=== PATIENT | male | born 1950 | race African-American/Black ===

== ENCOUNTER 2016-12-29 01:55 | Inpatient (IN) ==
--- NOTE | 2016-12-29 02:54 | Emergency Department Note ---
Landon Barboza Hilary, am scribing for, and in the presence of, Bennie Carvalho MD 02:21. Deven Barboza Robert M, MD, personally performed the services described in this documentation, ascribed by Linh Navarrete in my presence, and it is both accurate and complete . Arrival - Arrival Chief Complaint: Chest Pain ED Nursing Triage Note: C/O SOB and midsternal chest pain that started around 0000. Pt was seen and evaluated at [facility]- Chest pain was relieved after being given 2 SL nitro. Pt states he is still having some shortness of breath with exertion or laying down. Mode of Arrival: Stretcher Limitations: No Limitations Source: Patient, RN Notes Reviewed Time Seen by Provider: 12/29/16 02:14 - History of Present Illness HPI Narrative: Pt is a 66 y/o black male brought into the ED via EMS from [facility] with c/o midsternal chest pain which onset around 0000. Pt confirms chest pain that is now resolved but denies fever or cough. Pt has a PMHx of A-Fib, CHF, CAD, HTN, [place], PVD and COPD. No other complaints or problems stated. Onset (ago): hour(s) Consistency: now resolved Allergies/Adverse Reactions: Allergies Allergy/AdvReac Type Severity Reaction Status Date / Time MERCED Inhibitors Allergy Severe Swelling Verified 07/18/16 09:57 of Lip/Tongue/Throat benazepril Allergy Swelling Verified 07/18/16 09:58 of Lip/Tongue/Throat Home Medications: Home Medications Medication Instructions Recorded Confirmed Type Cholecalciferol (Vitamin D3) 1,000 unit PO DAILY 03/21/16 10/23/16 History [Vitamin D3] Aspirin EC Tab 81 mg PO QAM 05/24/16 10/23/16 History Levothyroxine Tab [Synthroid Tab] 88 mcg PO AC BREAKFAST 05/24/16 10/23/16 History Spironolactone [Aldactone] 25 mg PO DAILY tablet 06/07/16 10/23/16 Rx Atorvastatin [Lipitor] 10 mg PO BEDTIME 07/18/16 10/23/16 History Magnesium Oxide 400 mg PO TID 07/18/16 10/23/16 History Carvedilol 6.25 mg PO BID 07/30/16 10/23/16 History Furosemide 20 mg PO BID 07/30/16 10/23/16 History Ipratropium/Albuterol Inhaler 1 puff INH BID 10/10/16 10/23/16 History [Combivent Respimat Inhaler] Tizanidine HCl 4 mg PO Q8HR PRN 10/10/16 10/23/16 History Isosorbide Mononitrate [Isosorbide 15 mg PO DAILY 10/23/16 10/23/16 History Mononitrate ER] Montelukast Tab [Singulair Tab] 10 mg PO BEDTIME 10/23/16 10/23/16 History Pantoprazole Sodium 40 mg PO DAILY 10/23/16 10/23/16 History Potassium Chloride 20 meq PO DAILY 10/23/16 10/23/16 History Review of System - Review of System 12 point system: reviewed and no additional remarkable complaints except as stated - Review of System Constitutional: Absent: fever Respiratory: Absent: cough Cardiovascular: Present: chest pain (now resolved) Medical,Surgical,& Family Hx - Medical History Cardio: History of: Cardiac Dysrhythmia (a-fib), CHF, CAD, Hypertension, [place], PVD Neurology: No history of: Seizures Endocrine: History of: Thyroid Disorder Rheumatology: History of;: Gout Respiratory: History of: COPD, Obstructive Sleep Apnea - Surgical History Cardiac Surgeries: Sugical HX of: Cardiac Catheterization (PCI of RCA with bare- metal stent 2013), Internal Defibrillator - Family History Family History: Reports;: Family Cancer (brother-lymphoma), Family Diabetes ( brother), Family Heart Disease (mother-[place],brother and sister HTN, brother- heartvalve replacement), Family Hypertension (brother and sister) - Social History Smoking Status: Former smoker Frequency of Alcohol Use: None Type of Drug Use: None Exam Vital Signs: Vital Signs Temperature 98.3 F 12/29/16 01:55 Pulse Rate 92 H 12/29/16 01:55 Respiratory Rate 20 12/29/16 01:55 Blood Pressure 165/113 12/29/16 01:55 O2 Sat by Pulse Oximetry 97 12/29/16 01:55 - General General appearance: alert, in no apparent distress - Head Head exam: Present: atraumatic, normocephalic - Eye Eye exam: Present: normal appearance, PERRL, EOMI - ENT ENT exam: Present: mucous membranes moist, TM's normal bilaterally. Absent: mucous membranes dry - Neck Neck exam: Present: full ROM, trachea midline. Absent: tenderness - Chest Chest inspection: Present: symmetric chest wall rise. Absent: tenderness - Respiratory Respiratory exam: Present: normal lung sounds bilaterally. Absent: respiratory distress - Cardiovascular Cardiovascular exam: Present: regular rate, normal rhythm, normal heart sounds. Absent: murmur, rubs, gallop - Abdominal Exam Abdominal exam: Present: soft, normal bowel sounds. Absent: distention, tenderness - Extremities Exam Extremities exam: Present: full ROM. Absent: tenderness - Back Exam Back exam: Present: full ROM. Absent: tenderness - Neurological Exam Neurological exam: Present: alert, oriented X3, CN II-XII intact. Absent: motor sensory deficit - Psychiatric Psychiatric exam: Present: normal affect, normal mood - Skin Skin exam: Present: warm, dry, intact, normal color. Absent: rash Course - Consultations Consultation #1: Dr. Mj Monroy will admit the patient to Dr. Grewal. Time: 03:45 Results - Labs Lab Results: I have reviewed the patients labs Labs: Total Creatine Kinase 198 U/L (39-308) 12/29/16 02:54 CK-MB (CK-2) 13.3 U/L (0.5-3.6) H 12/29/16 02:54 CK and CKMB Interp 6.7 % 12/29/16 02:54 Troponin I 2.190 NG/ML (0.00-0.045) H 12/29/16 02:54 Disposition Clinical Impression: Chest pain, Allergy to MERCED inhibitors, Cardiomyopathy, LAURA (acute kidney injury ), Hypertension Case discussed with: patient, patient's family Disposition: Still a Patient Condition: Stable Time of Disposition: 03:45
[2016-12-29 03:39] LABS: CKMB % 6.7 %
[2016-12-29 03:42] LABS: Troponin I Only 2.19 NG/ML (0.00-0.045)
[2016-12-29] MEDS ORDERED: guaiFENesin/DM ER 600-30 MG TABLET PO PRN (03:46)
[2016-12-29] MEDS ORDERED: MAGNESIUM SULF RIDER 4 GM in PREMIX 1 EACH IV PRN (03:46)
[2016-12-29] MEDS ORDERED: POTASSIUM CHLORIDE 20 MEQ TABLET PO PRN (03:46)
[2016-12-29] MEDS ORDERED: DOCUSATE SODIUM 100 MG CAPSULE PO PRN (03:46)
[2016-12-29] MEDS ORDERED: MAGNESIUM SULF RIDER 2 GM in PREMIX 1 EACH IV PRN (03:46)
[2016-12-29] MEDS ORDERED: ZALEPLON 5 MG CAPSULE PO PRN (03:46)
[2016-12-29] MEDS ORDERED: ENOXAPARIN 100 MG/ML SYRINGE SUBCUT SCH (05:00)
[2016-12-29] MEDS: NITROGLYCERIN 2% OINT 1 INCH/GM PACK TOP SCH ×2 (06:02→13:30)
[2016-12-29 06:14] LABS: Troponin I Only 11.3 NG/ML (0.00-0.045)
--- NOTE | 2016-12-29 08:10 | EKG Report ---
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
--- NOTE | 2016-12-29 08:47 | EKG Report ---
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
--- NOTE | 2016-12-29 08:57 | Cardiology History & Physical ---
<Latonya Robert E - Last Filed: 12/29/16 09:05> Assessment and Plan - Time spent with patient Time spent with patient: Greater than 30 minutes (due to assessment, plan, and documentation) (1) NSTEMI (non-ST elevated myocardial infarction) Status: Acute Assessment and plan: SEE PLAN OF CARE LISTED BELOW. Current Visit: Yes (2) Paroxysmal atrial fibrillation Status: Chronic Assessment and plan: SEE PLAN OF CARE LISTED BELOW. Current Visit: No (3) Nonischemic cardiomyopathy Status: Chronic Assessment and plan: SEE PLAN OF CARE LISTED BELOW. Current Visit: No (4) Allergy to MERCED inhibitors Status: Chronic Assessment and plan: SEE PLAN OF CARE LISTED BELOW. Current Visit: Yes (5) Hypertension Status: Chronic Assessment and plan: SEE PLAN OF CARE LISTED BELOW. Current Visit: Yes (6) Acute systolic CHF (congestive heart failure) Status: Acute Assessment and plan: SEE PLAN OF CARE LISTED BELOW. Current Visit: No (7) NSVT (nonsustained ventricular tachycardia) Status: Chronic Assessment and plan: SEE PLAN OF CARE LISTED BELOW. Current Visit: No (8) S/P implantation of automatic cardioverter/defibrillator (AICD) Status: Chronic Assessment and plan: SEE PLAN OF CARE LISTED BELOW. Current Visit: Yes (9) Obstructive sleep apnea Status: Chronic Assessment and plan: SEE PLAN OF CARE LISTED BELOW. Current Visit: No (10) PVD (peripheral vascular disease) Status: Chronic Assessment and plan: SEE PLAN OF CARE LISTED BELOW. Current Visit: Yes (11) COPD (chronic obstructive pulmonary disease) Status: Chronic Assessment and plan: SEE PLAN OF CARE LISTED BELOW. Current Visit: Yes (12) Coronary artery disease Problem details: PCI to RCA with BMS 03/2014 [facility] Status: Chronic Assessment and plan: SEE PLAN OF CARE LISTED BELOW. Current Visit: No History of Present Illness Chief complaint: chest pain History of present illness: CARDIOLGIST: DR. BROCK ALLERGIC TO MERCED INHIBITORS Mr. Garcia is a 66 year old male with a history of CAD, status post PCI March [address] Callahan at [place] with placement of Integrity [id number] bare-metal stent to ostial RCA. He also has a history of COPD, hyperlipidemia, hypertension, ischemic cardiomyopathy with recent EF 20% per echo 10/10/16 with PAP 78mmHg. He has paroxysmal atrial fibrillation and a history of nonsustained ventricular tachycardia. In May 2016, he underwent ICD implantation by Dr. Arias. He was seen in clinic by Dr. Grewal yesterday and his interrogation of his ICD did not show any recurrent atrial fibrillation so his anticoagulation was held. He was recently hospitalized in October of this year for new onset atrial fibrillation and CHF exacerbation. Mr. Garcia reports he had been in his usual state of health and had actually been feeling better following his recent hospitalization until last night. He states he woke up around midnight with a midsternal chest discomfort that he describes as a burning sensation. It was accompanied by shortness of breath and diaphoresis. He reports the pain persisted and he went to the emergency room in [place], [place]. He was given 2 sublingual nitroglycerin and had relief of his symptoms. He denies nausea, vomiting, dizziness, lightheadedness, or syncope. He denies radiation of pain. He states is was severe in nature. He was given an aspirin, IV Lasix, and 80mg Lovenox subcutaneously and transferred to our facility where he was admitted through the emergency department to the telemetry unit. Initial troponin was 0.15 with CK-MB 4.4, now up to trop 11.3 and CK-MB 41.0. Creatinine is 1.09. Potassium 4.2. BUN 21. WBC 9.22. HGB 15.8. HCT 50.1. Mag 1.8. ProBNP 1755. EKG shows atrial fibrillation with increased ventricular response. Dr. Brock to follow with further plan and addendum. ASSESSMENT/PLAN: 1. NSTEMI - Admitted to telemetry unit. Patient has been seen and evaluated this morning by myself and Dr. Brock. Given the patient's presentation and lab values, it is suspected he has had a non-ST elevation myocardial infarction and will need cardiac catheterization to evaluate for new obstructing coronary disease. Dr. Brock has discussed this with the patient and his and they are agreeable to proceed with left heart catheterization. 2. PAROXYSMAL ATRIAL FIBRILLATION - Proceed with left heart catheterization. We will resume his Toprol XL PO daily. 3. NONISCHEMIC CARDIOMYOPATHY - Continue home medications following LHC. Will monitor and adjust as needed. 4. ALLERGY TO MERCED INHIBITORS - Allergic to benazepril. Reaction: ANGIOEDEMA 5. HYPERTENSION - Currently slightly hypertensive. Will resume home medications following heart catheterization. 6. SYSTOLIC CHF - Previous EF 20% per echocardiogram 10/10/16. He was also noted to have moderate LVH, mildly enlarged right and left atria, mild MR, normal aortic valve without stenosis or sclerosis, mild to moderate tricuspid regurgitation with velocities suggesting a PAP of 78 mmHg, and trace pulmonary valve regurgitation. Patient presented to [facility] with chest pain and acute on chronic systolic CHF with ProBNP 1755. He was given 1 dose of IV Lasix at [facility]. He has no overt signs of heart failure at present, maybe scant crackles in the posterior bases. He is breathing comfortably at this time. 7. NSVT - S/P dual chamber AICD implantation by Dr. Arias May 2016. 8. S/P AICD - S/P dual chamber AICD implantation by Dr. Arias May 2016. 9. OBSTRUCTIVE SLEEP APNEA - Noncompliant with CPAP. Patient currently wears O2 at night and has a follow up appointment within the next week for re-evaluation. 10. PERIPHERAL VASCULAR DISEASE - Peripheral pulses present and palpable. Will continue home medications. 11. COPD - O2 PRN. Continue home medications. 12. CORONARY ARTERY DISEASE - Status post bare-metal stent to ostial RCA March [address] Callahan now presenting with NSTEMI. Previous heart catheterization May [address] stent. Dr. Brock will further evaluate with left heart catheterization today. Home Medications Medication Instructions Recorded Confirmed Type Aspirin EC Tab 81 mg PO QAM 05/24/16 12/29/16 History Levothyroxine Tab [Synthroid Tab] 88 mcg PO AC BREAKFAST 05/24/16 12/29/16 History Spironolactone [Aldactone] 25 mg PO DAILY tablet 06/07/16 12/29/16 Rx Magnesium Oxide 400 mg PO TID 07/18/16 12/29/16 History Furosemide 20 mg PO BID 07/30/16 12/29/16 History Ipratropium/Albuterol Inhaler 1 puff INH BID 10/10/16 12/29/16 History [Combivent Respimat Inhaler] Montelukast Tab [Singulair Tab] 10 mg PO BEDTIME 10/23/16 12/29/16 History Pantoprazole Sodium 40 mg PO DAILY 10/23/16 12/29/16 History Potassium Chloride 20 meq PO DAILY 10/23/16 12/29/16 History Allopurinol 300 mg PO DAILY 12/29/16 12/29/16 History Atorvastatin Calcium [Atorvastatin 10 mg PO DAILY 12/29/16 12/29/16 History Calcium] Budesonide/Formoterol 160-4.5 2 puff INH BID 12/29/16 12/29/16 History [Symbicort 160-4.5] Cholecalciferol (Vitamin D3) 1,000 unit PO DAILY 12/29/16 12/29/16 History [Vitamin D3] Digoxin Tab [Lanoxin Tab] 0.125 mg PO DAILY 12/29/16 12/29/16 History Metoprolol Succinate [Metoprolol 25 mg PO DAILY 12/29/16 12/29/16 History Succinate] Allergies Allergy/AdvReac Type Severity Reaction Status Date / Time MERCED Inhibitors Allergy Severe Swelling Verified 07/18/16 09:57 of Lip/Tongue/Throat benazepril Allergy Swelling Verified 07/18/16 09:58 of Lip/Tongue/Throat Review of systems: - Constitutional: Present: fatigue, As per HPI. Absent: anorexia, chills, daytime sleepiness, excessive sweating, fever(s), frequent falls, headache(s), increased appetite, lethargy, malaise, night sweats, stops breathing during sleep, weakness, weight gain, weight loss. - EENT Eyes: Present: As per HPI. Absent: blurry vision, diplopia, loss of vision Ears: Present: As per HPI. Absent: decreased hearing, ear discharge, ear pain Nose, mouth and throat: Present: As per HPI. Absent: dysphagia, epistaxis, headache(s), hoarseness, lip swelling, nasal congestion, neck mass, neck pain, sinus pressure, sore throat, throat swelling, tongue swelling, vertigo - Cardiovascular: Present: chest pain at rest, dyspnea, dyspnea on exertion, as per HPI. Absent: chest pain with activity, edema, claudication, diaphoresis, radiating jaw, neck or arm pain, lightheadedness, orthopnea, palpitations, PND - Respiratory: Present: dyspnea, dyspnea on exertion, snoring, as per HPI. Absent: cough, hemoptysis, wheezing, pain on inspiration - Gastrointestinal: Present: As per HPI. Absent: abdominal pain, bloating, change in bowel habits, constipation, diarrhea, heartburn, hematemesis, hematochezia, loose stools, melena, nausea, vomiting - Genitourinary: Present: As per HPI. Absent: difficulty urinating, dysuria, flank pain, hematuria, nocturia, urinary frequency, urinary incontinence - Musculoskeletal: Present: As per HPI. Absent: arthralgias, back pain, joint swelling, limited range of motion, muscle cramps, muscle weakness, myalgias - Neurological: Present: As per HPI. Absent: abnormal gait, abnormal speech, behavioral changes, confusion, convulsions, disequilibrium, dizziness, focal weakness, frequent falls, headache(s), memory loss, numbness, paresthesias, radicular pain, syncope, tremor(s) - Psychiatric: Present: As per HPI. Absent: anxiety, confusion, depression, panic attacks - Endocrine: Present: fatigue, As per HPI. Absent: cold intolerance, heat intolerance, polydipsia, polyphagia - Hematologic/Lymphatic: Present: As per HPI. Absent: easy bleeding, easy bruising, lymphadenopathy Medical,Surgical,& Family Hx - Medical History Cardio: History of: Cardiac Dysrhythmia (a-fib), CHF, CAD, Hypertension, [place], Pacemaker, PVD Neurology: No history of: Seizures Endocrine: History of: Thyroid Disorder Rheumatology: History of;: Gout Respiratory: History of: COPD, Obstructive Sleep Apnea - Surgical History Cardiac Surgeries: Sugical HX of: Cardiac Catheterization (PCI of RCA with bare- metal stent 2013), Internal Defibrillator - Family History Family History: Reports;: Family Cancer (brother-lymphoma), Family Diabetes ( brother), Family Heart Disease (mother-[place],brother and sister HTN, brother- heartvalve replacement), Family Hypertension (brother and sister) - Social History Smoking Status: Former smoker Frequency of Alcohol Use: None Type of Drug Use: None Marital Status: Lives With:: Spouse Functional capacity: independent ambulation Cardiology Physical Exam - Constitutional Vitals: Vital Signs Temp Pulse Resp BP Pulse Ox 97.4 F L 58 L 18 148/97 96 12/29/16 08:00 12/29/16 08:00 12/29/16 08:00 12/29/16 08:00 12/29/16 08:00 Intake and Output 12/28/16 12/29/16 12/29/16 22:59 06:59 14:59 Other: Weight 196 lb 4.8 oz Exam: General appearance: Pleasant and cooperative. Overweight, no acute distress. - Head Head exam: Present: normal inspection, normocephalic, atraumatic. Absent: hematoma, laceration - Eye Eye exam: Present: EOMI. Absent: conjunctival injection, nystagmus, periorbital swelling, scleral icterus, laceration to eyelids Pupils: Present: PERRL. Absent: constricted, dilated, fixed, irregular, unequal - ENT ENT exam: Present: normal exam, normal external ear exam - Neck Neck exam: Present: normal inspection. Absent: lymphadenopathy, meningismus, tenderness, thyromegaly - Respiratory Respiratory exam: Present: clear to auscultation bilaterally, scant crackles to posterior lung bases. Absent: accessory muscle use, chest wall tenderness - Cardiovascular Cardiovascular exam: Present: Irregular rate and rhythm. Absent: carotid bruit , gallop, JVD, rubs, murmur - GI/Abdominal GI/Abdominal exam: Present: normal bowel sounds, soft. Absent: distended, firm , guarding, hernia, mass, tenderness, rebound. - Extremities Exam Extremities exam: Present: normal inspection, normal capillary refill. Upper extremity pulses 2+. Lower extremity pulses 2+. Absent: calf tenderness, edema -Musculoskeletal Exam Musculoskeletal: Present: No Fluid Collection, No Pain, Normal Range of Motion - Back Exam Back exam: Present: normal inspection. Absent: muscle spasm, vertebral tenderness - Neurological Exam Neurological exam: Present: alert, oriented X3, grossly intact without resting or essential tremor - Psychiatric Psychiatric exam: Present: normal affect, normal mood - Skin Skin exam: Present: normal color, warm, dry, intact. Absent: cyanosis, diaphoretic, rash, urticaria Result/EKG - Labs Lab Results: I have reviewed the past 24 hour labs Labs: Laboratory Results - last 24 hr 12/29/16 05:22 Total Creatine Kinase 455 H D CK-MB (CK-2) 41.0 H D CK and CKMB Interp 9.0 Troponin I 11.300 H D - EKG EKG results: interpreted by me EKG shows: atrial fibrillation <Michele Brock - Last Filed: 12/29/16 10:02> History of Present Illness History of present illness: Cardiology addendum patient examined chart reviewed and discussed with patient and his Non-Q-wave [place]. Status post RCA stent at [place] around 2013 Ejection fraction 20% status post defibrillator Recurrent atrial fibrillation Hypertension Plan normal saline hydration Cardiac cath today possible stent Cardiology Physical Exam - Constitutional Vitals: Vital Signs Temp Pulse Resp BP Pulse Ox 97.4 F L 58 L 18 148/97 96 12/29/16 08:00 12/29/16 08:00 12/29/16 08:00 12/29/16 08:00 12/29/16 08:00 Intake and Output 12/28/16 12/29/16 12/29/16 23:59 07:59 15:59 Other: Weight 89.04 kg Patient Weight 12/29/16 23:59 Weight 89.04 kg Result/EKG - Labs Labs: Laboratory Results - last 24 hr 12/29/16 05:22 Total Creatine Kinase 455 H D CK-MB (CK-2) 41.0 H D CK and CKMB Interp 9.0 Troponin I 11.300 H D
[2016-12-29] MEDS: PANTOPRAZOLE 40 MG TABLET PO SCH (09:06)
[2016-12-29] MEDS ORDERED: diphenhydrAMINE CAP 25 MG CAPSULE PO ONE (10:08)
[2016-12-29] MEDS ORDERED: diphenhydrAMINE CAP 50 MG CAPSULE ONE (10:08)
[2016-12-29] MEDS ORDERED: DIAZEPAM 5 MG TABLET ONE (10:08)
[2016-12-29] MEDS ORDERED: DIAZEPAM 5 MG TABLET PO ONE (10:10)
[2016-12-29] MEDS: ASPIRIN EC 81 MG TABLET PO SCH (10:13)
[2016-12-29] MEDS: SPIRONOLACTONE 25 MG TABLET PO SCH (10:13)
[2016-12-29] MEDS: METOPROLOL SUCCINATE XL 25 MG TABLET PO SCH (10:13)
[2016-12-29] MEDS: ALLOPURINOL 300 MG TABLET PO SCH (10:14)
[2016-12-29] MEDS: DIGOXIN 0.125 MG TABLET PO SCH (10:14)
[2016-12-29] MEDS: CHOLECALCIFEROL 1,000 UNIT TABLET PO SCH (10:14)
[2016-12-29] MEDS ORDERED: LIDOCAINE 1% 20 ML VIAL ONE (10:16)
[2016-12-29] MEDS ORDERED: HEPARIN/NACL 0.9% 2 UNITS/ML 500 ML IV ONE ×2 (10:16→10:23)
[2016-12-29] MEDS: POTASSIUM CHLORIDE 20 MEQ TABLET PO SCH (10:17)
[2016-12-29] MEDS ORDERED: HYDROmorphone 2 MG/1 ML VIAL ONE (11:02)
[2016-12-29] MEDS ORDERED: MIDAZOLAM 2 MG/2 ML VIAL ONE (11:03)
--- NOTE | 2016-12-29 11:27 | History and Physical Update ---
Sedation H&P Update - History and Physical H&P was reviewed, the patient examined and there: are no changes in the patients condition since last H&P was completed. - Dictation Physical: refer to H&P completed by admitting physician - Physical Exam Mental Status: alert and oriented Heart: regular rate and rhythm Lung: clear to auscultation Abdomen: within normal limits Vitals: within normal limits - Sedation Plan for Sedation: moderate Patient Consent: Procedure disscussed with patient and patinet has consented., Risks and benefits were discussed with patient,including infection,, bleeding, injury to surrounding structures, seizure, temporary nerve, Patient understands and accepts potential risks/benefits and agrees to, proceed. ASA Class: II Airway Assessment: Class II: Soft palate, uvula, fauces visible
[2016-12-29] MEDS ORDERED: BIVALIRUDIN 250 MG VIAL IV ONE (11:52)
[2016-12-29] MEDS ORDERED: CLOPIDOGREL 300 MG TABLET ONE (12:07)
[2016-12-29] MEDS ORDERED: ACETAMINOPHEN 325 MG TABLET PO PRN (12:35)
[2016-12-29] MEDS ORDERED: NITROGLYCERIN SL 0.4 MG TABLET SL PRN (12:35)
--- NOTE | 2016-12-29 12:35 | Cardiac Catheterization ---
Date of Procedure:: 12/29/16 Pre-op Diagnosis: Chest pain CAD non-Q-wave DC Post-op diagnosis: same Procedure: Cardiac catheterization procedure note #1 left heart catheterization #2 selective coronary angiography #3 left ventriculography #4 successful proximal LAD stent Omnipaque was used for the procedure Description of procedure Following sterile preparation draping of the right groin, local anesthesia was achieved by infiltration 1% Xylocaine. Using a Cook needle the right femoral artery was cannulated and a #6 sheath was inserted. A 6 [place] pigtail catheter was introduced and advanced retrograde across the aortic valve into the left ventricle and the end-diastolic pressure was recorded. Left ventriculography was performed in the GUSMAN projection using 24 cc of contrast. A pullback recording made across aortic valve. The pigtail catheter exchanged for a 6 [place] left Ismael catheter and left coronary angiography was performed in several GUSMAN and POLISH projections. The catheter was exchanged for a 6 [place] right Amplatz catheter and right coronary angiography was performed in GUSMAN and POLISH projections. The catheter change for a 6 [place] left Ismael guiding catheter in the left main was recannulated. A's Alpine was obtained. The patient was both Angiomax and placed on infusion per protocol. A pro-water flex wire was introduced and carefully advanced into the distal LAD. Direct stenting was performed using a 3.5 x 12 mm AdAdapted drug-coated stent. The maximum inflation pressure was 19 temperatures for 30 seconds, creating a 3.95 mm lumen. The balloon was deflated and brought back into the guiding catheter, Leaving only the guidewire across the lesion. Repeat angiography widely patent vessel with mild residual narrowing, no dissection and brisk runoff. The guiding catheter and sheath were removed and the femoral arteriotomy site was sealed percutaneously with a vascade closure device with prompt cessation of bleeding and prompt return of the femoral foot pulses. The patient is transferred back to telemetry in stable condition. Hemodynamic data Aortic pressure 110/71 mean 88 LV 110/14 Selective coronary angiography The left main trunk is widely patent bifurcates. The LAD is a large vessel wraps around the apex. There is an ulcerated 60% stenosis in the proximal vessel before the first septal patient access coordinator. The diagonal branch has mild disease. The circumflex consists of 3 large tortuous OM branches which are widely patent. The right coronary has a patent mid vessel stent site and a 40% stenosis beyond the stented segment. Left ventriculography The ventricle is dilated. Severe global hypokinesis. Ejection fraction 15%. Trivial MR is noted. Conclusions #1 increased LVEDP 14 #2 ejection fraction 15% with severe global hypokinesis #3 trivial mitral vegetation #4 no aortic valve gradient #5 left main trunk-patent #6 LAD-ulcerated 60% proximal stenosis before first septal patient access coordinator #7 first diagonal-mild proximal disease #8 circumflex system-3 large tortuous OM branches widely patent #9 dominant RCA-widely patent mid vessel stent site with 40% stenosis beyond the stented segment just before the crux #10 successful proximal LAD stent using a 3.5 x 12 mm Alpine Zions drug-eluting stent. The maximum inflation pressure was 19 and measures for 30 seconds, creating a 3.95 mm lumen. Good result obtained. Disposition The patient is status post non-Q-wave infarction. Cath demonstrated an ulcerated proximal LAD stenosis which was stented with a 3.5 x 12 mm Alpine Zions drug-coated stent, postdilated to a 3.95 mm lumen. Good result obtained. The circumflex system remains widely patent and the mid right coronary stent remains widely patent. The patient has an ischemic cardia myopathy, ejection fraction 15%. Continue aspirin Plavix and statin therapy. BMP will be checked in the morning Implants: Successful proximal LAD stent 3.5 x 12 mm Alpine Zions drug-coated stent, postdilated 3.95 mm lumen. Good result obtained. Anesthesia: moderate conscious sedation Surgeon / Physician: Michele Brock Estimated blood loss: minimal Specimens: none sent Condition: stable Disposition: floor - Medications / Follow-up
[2016-12-29] MEDS ORDERED: SODIUM CHLORIDE 0.9% 1,000 ML IV SCH (13:00)
--- NOTE | 2016-12-29 13:07 | EKG Report ---
Stationary ECG Study [facility] Test Date: 12/29/2016 1:06:56 PM Pat Name: RAQUEL FINN Department: Room: 284 Gender: M Chip Separator: KOLBY : 1950 Requested by: Cheikh Lind Order Number: [id number] Reading MD: CHEIKH LIND Intervals [place] Rate: 109 P: 999 IN: 0 QRS: 127 QRSD: 93 T: 20 QT: 332 QTc: 396 Interpretive Statements ATRIAL FIBRILLATION WITH RAPID VENTRICULAR RESPONSE RIGHT AXIS DEVIATION Electronically Signed On 12-29-16 17:47:11 CDT by CHEIKH LIND [email or web address]
[2016-12-29] MEDS: BUDESONIDE/FORMOTEROL 160-4.5 INHALER 6 GM INH SCH ×2 (13:29→21:13)
[2016-12-29] MEDS: ALBUTEROL/IPRATROPIUM 3 ML NEB RESP TX SCH ×2 (13:29→18:54)
[2016-12-29 14:35] LABS: CKMB % 9.5 %
[2016-12-29 14:39] LABS: Troponin I Only 14.4 NG/ML (0.00-0.045)
[2016-12-29] MEDS: MAGNESIUM OXIDE 400 MG TABLET PO SCH ×2 (15:19→21:09)
[2016-12-29 20:57] LABS: CKMB % 7.6 %
[2016-12-29 20:59] LABS: Troponin I Only 9.5 NG/ML (0.00-0.045)
[2016-12-29] MEDS: ATORVASTATIN 10 MG TABLET PO SCH (21:09)
[2016-12-29] MEDS: MONTELUKAST 10 MG TABLET PO SCH (21:09)
[2016-12-30 05:33] LABS: Basophils # 0.1 10*3/uL (0.0-0.2); Basophils % 0.7 % (0.0-0.8); Eosinophils # 0.1 10*3/uL (0.0-0.87); Eosinophils % 0.7 % (0.00-10.9); Hematocrit 48.5 VOL% (42.0-52.0); Hemoglobin 15.5 GM/DL (14.0-18.0); Immature Granulocytes % 0.3 %; Immature Granulocytes Absolute 0.03 #; Lymphocytes # 1.8 10*3/uL (1.4-4.0); Lymphocytes % 19.2 % (21.2-54.2); Mean Corpuscular Hemoglobin 28 PG (27-34); Mean Corpuscular Volume 88.7 FL (87-102); Mean Platelet Volume 11.8 FL (9.6-12.0); Monocytes % 10.5 % (1.7-12.7); Neutrophils # 6.3 10*3/uL (1.4-7.4); Neutrophils % 68.6 % (38.7-73.9); Platelet Count 228 T/CUMM (130-400); Red Blood Count 5.47 MC/CUMM (3.8-5.5); Red Cell Distribution Width 15.5 % (9.3-17.3); White Blood Count 9.1 T/CUMM (4-12)
[2016-12-30 06:04] LABS: Calcium 9.5 MG/DL (8.5-10.1); Osmolality,Calculated 282.4 MOS/KG (273-304); Potassium 4.9 MMOL/L (3.5-5.1)
[2016-12-30 06:14] LABS: Albumin 3.6 G/DL (3.4-5.0); Bilirubin,Total 1.2 MG/DL (0.2-1.0); Calcium 9.5 MG/DL (8.5-10.1); Free T4 (Free Thyroxine) 0.88 NG/DL (0.76-1.46); Magnesium 2.1 MG/DL (1.8-2.4); Osmolality,Calculated 280.5 MOS/KG (273-304); Potassium 5.2 MMOL/L (3.5-5.1); Risk Ratio 3.42; Thyroid Stimulating Hormone 1.04 uIU/ml (0.358-3.74); Total Protein 6.4 G/DL (6.4-8.3); VLDL CHOLESTEROL 28.6 MG/DL
--- NOTE | 2016-12-30 07:17 | EKG Report ---
Stationary ECG Study [facility] Test Date: 12/30/2016 7:16:41 AM Pat Name: RAQUEL FINN Department: Room: 284 Gender: M Lab Technologist: SHAKIR : 1950 Requested by: Cheikh Lind Order Number: [id number] Reading MD: CHEIKH LIND Intervals [place] Rate: 86 P: 999 [place]: 0 QRS: 125 QRSD: 98 T: 240 QT: 377 QTc: 421 Interpretive Statements ATRIAL FIBRILLATION RIGHT AXIS DEVIATION POOR R-WAVE PROGRESSION Electronically Signed On 12-30-16 17:24:08 CDT by CHEIKH LIND [email or web address]
[2016-12-30] MEDS: ALBUTEROL/IPRATROPIUM 3 ML NEB RESP TX SCH ×2 (07:31→20:42)
[2016-12-30] MEDS: LEVOTHYROXINE 88 MCG TABLET PO SCH (08:29)
[2016-12-30] MEDS: METOPROLOL SUCCINATE XL 25 MG TABLET PO SCH (08:29)
[2016-12-30] MEDS: MAGNESIUM OXIDE 400 MG TABLET PO SCH ×3 (08:29→21:31)
[2016-12-30] MEDS: ASPIRIN EC 81 MG TABLET PO SCH (08:29)
[2016-12-30] MEDS: ALLOPURINOL 300 MG TABLET PO SCH (08:29)
[2016-12-30] MEDS: PANTOPRAZOLE 40 MG TABLET PO SCH (08:29)
[2016-12-30] MEDS: SPIRONOLACTONE 25 MG TABLET PO SCH (08:29)
[2016-12-30] MEDS: POTASSIUM CHLORIDE 20 MEQ TABLET PO SCH (08:29)
[2016-12-30] MEDS: CLOPIDOGREL 75 MG TABLET PO SCH (08:29)
[2016-12-30] MEDS: DIGOXIN 0.125 MG TABLET PO SCH (08:29)
[2016-12-30] MEDS: CHOLECALCIFEROL 1,000 UNIT TABLET PO SCH (08:29)
[2016-12-30] MEDS: ATORVASTATIN 10 MG TABLET PO SCH (08:30)
[2016-12-30] MEDS: BUDESONIDE/FORMOTEROL 160-4.5 INHALER 6 GM INH SCH ×2 (08:31→21:32)
[2016-12-30] MEDS ORDERED: METOPROLOL SUCCINATE XL 50 MG TABLET PO SCH (10:20)
--- NOTE | 2016-12-30 12:30 | Discharge Summary ---
Hospital Course - Hospital Course Hospital Course: CARDIOLGIST: DR. BROCK ALLERGIC TO MERCED INHIBITORS Mr. Garcia is a 66 year old male who presented with chest discomfort. He states he woke up around midnight with a midsternal chest discomfort that he describes as a burning sensation. It was accompanied by shortness of breath and diaphoresis. He has a history of CAD, status post PCI March [address] Callahan at [facility] with placement of Integrity [id number] bare- metal stent to ostial RCA. He also has a history of COPD, hyperlipidemia, hypertension, ischemic cardiomyopathy with recent EF 20% per echo 10/10/16 with PAP 78mmHg. He has paroxysmal atrial fibrillation and a history of nonsustained ventricular tachycardia. In May 2016, he underwent ICD implantation by Dr. Arias. During hospitalization, his troponin jumped to a peak of 14.4 and he was taken to the laboratory sampler by Dr. Brock for his non-Q-wave IN where he received a drug-eluting stent for a 60% ulcerated proximal LAD stenosis. Post catheterization, he has done well. His blood pressure was a little elevated and we adjusted his medications. His right groin cath site dressing was removed. There has been no bleeding, hematoma, or bruit. Femoral pulses are 3+. Peripheral pulses are present and palpable. Since admission, he has been in atrial fibrillation. He has been off of his anticoagulation previously since he'd had no recurrent episodes of AFib until now. We've increased his dose of Toprol XL and his heart rates have been better controlled, but he remains in atrial fibrillation. - Time spent with patient Time with patient DS: Greater than 30 minutes Diagnosis - Discharge Diagnosis (1) NSTEMI (non-ST elevated myocardial infarction) Status: Acute (2) Paroxysmal atrial fibrillation Status: Chronic (3) Nonischemic cardiomyopathy Status: Chronic (4) Allergy to MERCED inhibitors Status: Chronic (5) Hypertension Status: Chronic (6) Acute systolic CHF (congestive heart failure) Status: Chronic (7) NSVT (nonsustained ventricular tachycardia) Status: Chronic (8) S/P implantation of automatic cardioverter/defibrillator (AICD) Status: Chronic (9) Obstructive sleep apnea Status: Chronic (10) PVD (peripheral vascular disease) Status: Chronic (11) COPD (chronic obstructive pulmonary disease) Status: Chronic (12) Coronary artery disease Status: Chronic Specialty Discharge - Follow Up or Referrals Follow up with: Julia Grewal MD [Physician] - 02/28/17 10:20 am (We made an additional appt for you on 01/20/17 09:00.) Discharge Plan - Discharge Data Disposition: Disch To Home/Self Care Condition at Discharge: Stable Discharge Diet: diabetic diet, heart healthy Activity: no lifting (over 5# x 1 week), other (post cath expectations) Hygiene: may shower, other (post cath expectations) Weight Bearing at Discharge: full weight bearing Driving: not for (2 days) Contact your physician if you experience:: fever over 101, Difficulty voiding, Redness or swelling, Nausea/Vomiting, Shortness of breath, Bleeding, pain uncontrolled by pain medications - Discharge Medications No Action Levothyroxine Tab [Synthroid Tab] 88 mcg PO AC BREAKFAST Aspirin EC Tab 81 mg PO QAM Spironolactone [Aldactone] 25 mg PO DAILY tablet Magnesium Oxide 400 mg PO TID Montelukast Tab [Singulair Tab] 10 mg PO BEDTIME Pantoprazole Sodium 40 mg PO DAILY Budesonide/Formoterol 160-4.5 [Symbicort 160-4.5] 2 puff INH BID Cholecalciferol (Vitamin D3) [Vitamin D3] 1,000 unit PO DAILY Furosemide 20 mg PO BID Ipratropium/Albuterol Inhaler [Combivent Respimat Inhaler] 1 puff INH BID Potassium Chloride 20 meq PO DAILY Allopurinol 300 mg PO DAILY Digoxin Tab [Lanoxin Tab] 0.125 mg PO DAILY Metoprolol Succinate [Metoprolol Succinate] 25 mg PO DAILY Atorvastatin Calcium [Atorvastatin Calcium] 10 mg PO DAILY - Follow Up or Referral Follow Up: Julia Grewal MD [Physician] - 02/28/17 10:20 am (We made an additional appt for you on 01/20/17 09:00.) - Forms/Instructions Instructions: Left Heart Catheterization (DC), Heart Healthy Diet (GEN), Coronary Intravascular Stent Placement (DC) Exam - Constitutional Vitals: Period Temp Pulse Resp BP Sys/Estrada Pulse Ox Last 24 Hr 96.2 F-97.6 F 60-105 16-20 123-148/70-105 91-100 Exam: General appearance: Pleasant and cooperative. Overweight, no acute distress. - Head Head exam: Present: normal inspection, normocephalic, atraumatic. Absent: hematoma, laceration - Eye Eye exam: Present: EOMI. Absent: conjunctival injection, nystagmus, periorbital swelling, scleral icterus, laceration to eyelids Pupils: Present: PERRL. Absent: constricted, dilated, fixed, irregular, unequal - ENT ENT exam: Present: normal exam, normal external ear exam - Neck Neck exam: Present: normal inspection. Absent: lymphadenopathy, meningismus, tenderness, thyromegaly - Respiratory Respiratory exam: Present: clear to auscultation bilaterally, decreased breath sounds posteriorly. Absent: accessory muscle use, chest wall tenderness - Cardiovascular Cardiovascular exam: Present: Irregular rate and rhythm. Absent: carotid bruit , gallop, JVD, rubs, murmur - GI/Abdominal GI/Abdominal exam: Present: normal bowel sounds, soft. Absent: distended, firm , guarding, hernia, mass, tenderness, rebound. - Extremities Exam Extremities exam: Present: normal inspection, normal capillary refill. Upper extremity pulses 2+. Lower extremity pulses 2+. Absent: calf tenderness, edema -Musculoskeletal Exam Musculoskeletal: Present: No Fluid Collection, No Pain, Normal Range of Motion - Back Exam Back exam: Present: normal inspection. Absent: muscle spasm, vertebral tenderness - Neurological Exam Neurological exam: Present: alert, oriented X3, grossly intact without resting or essential tremor - Psychiatric Psychiatric exam: Present: normal affect, normal mood - Skin Skin exam: Present: normal color, warm, dry, intact. Absent: cyanosis, diaphoretic, rash, urticaria -Right groin Right groin exam: No bleeding, hematoma, or bruit. Mild tenderness to palpation. Femoral pulse 3+. Peripheral pulses 2+ bilaterally. Discharge Results Procedures and tests throughout hospitalization: Pending Orders 12/31/16 04:00 Basic Metabolic Panel IN AM Comp Blood Count Auto Diff IN AM Magnesium IN AM 01/01/17 04:00 Basic Metabolic Panel IN AM Comp Blood Count Auto Diff IN AM Magnesium IN AM 01/02/17 04:00 Basic Metabolic Panel IN AM Comp Blood Count Auto Diff IN AM Magnesium IN AM LEFT HEART CATHETERIZATION: Selective coronary angiography The left main trunk is widely patent bifurcates. The LAD is a large vessel wraps around the apex. There is an ulcerated 60% stenosis in the proximal vessel before the first septal unclaimed property manager. The diagonal branch has mild disease. The circumflex consists of 3 large tortuous OM branches which are widely patent. The right coronary has a patent mid vessel stent site and a 40% stenosis beyond the stented segment. Left ventriculography The ventricle is dilated. Severe global hypokinesis. Ejection fraction 15%. Trivial MR is noted. Conclusions #1 increased LVEDP 14 #2 ejection fraction 15% with severe global hypokinesis #3 trivial mitral vegetation #4 no aortic valve gradient #5 left main trunk-patent #6 LAD-ulcerated 60% proximal stenosis before first septal unclaimed property manager #7 first diagonal-mild proximal disease #8 circumflex system-3 large tortuous OM branches widely patent #9 dominant RCA-widely patent mid vessel stent site with 40% stenosis beyond the stented segment just before the crux #10 successful proximal LAD stent using a 3.5 x 12 mm Alpine Zions drug-eluting stent. The maximum inflation pressure was 19 and measures for 30 seconds, creating a 3.95 mm lumen. Good result obtained. Labs on day of discharge: Labs from last 24 hours 12/30/16 12/30/16 12/30/16 04:57 04:57 04:57 WBC RBC Hgb Hct MCV MCH MCHC RDW Plt Count MPV Neut % (Auto) Lymph % (Auto) Greene % (Auto) Eos % (Auto) Baso % (Auto) Neut # (Auto) Lymph # (Auto) Greene # (Auto) Eos # (Auto) Baso # (Auto) Immature Gran % Nucleated RBC % Immature Gran # Nucleated RBCs # Sodium 140 139 Potassium 4.9 5.2 H Chloride 105 105 Carbon Dioxide 22 21 Anion Gap 17.9 H 18.2 H BUN 22 H 21 H Creatinine 1.40 H 1.30 GFR Calculation 71 78 BUN/Creatinine Ratio 15.00 16.00 Glucose 117 H 117 H Calculated Osmolality 282.4 280.5 Calcium 9.5 9.5 Magnesium 2.1 Total Bilirubin 1.20 H AST 62 H ALT 39 Alkaline Phosphatase 164 H Total Creatine Kinase CK-MB (CK-2) CK and CKMB Interp Troponin I B-Natriuretic Peptide 532 H Total Protein 6.4 Albumin 3.6 Globulin 2.8 Albumin/Globulin Ratio 1.2 Triglycerides 143 Cholesterol 130 LDL Cholesterol 71.0 VLDL Cholesterol 28.6 HDL Cholesterol 38 L Heart Disease Risk Ratio 3.42 Free T4 0.88 TSH 3rd Generation 1.040 12/30/16 12/29/16 12/29/16 04:57 20:16 13:27 WBC 9.1 RBC 5.47 Hgb 15.5 Hct 48.5 MCV 88.7 MCH 28 MCHC 32.0 RDW 15.5 Plt Count 228 MPV 11.8 Neut % (Auto) 68.6 Lymph % (Auto) 19.2 L Greene % (Auto) 10.5 Eos % (Auto) 0.7 Baso % (Auto) 0.7 Neut # (Auto) 6.3 Lymph # (Auto) 1.8 Greene # (Auto) 1.0 H Eos # (Auto) 0.1 Baso # (Auto) 0.1 Immature Gran % 0.3 Nucleated RBC % 0.0 Immature Gran # 0.03 Nucleated RBCs # 0.00 Sodium Potassium Chloride Carbon Dioxide Anion Gap BUN Creatinine GFR Calculation BUN/Creatinine Ratio Glucose Calculated Osmolality Calcium Magnesium Total Bilirubin AST ALT Alkaline Phosphatase Total Creatine Kinase 508 H 526 H CK-MB (CK-2) 38.7 H D 50.1 H D CK and CKMB Interp 7.6 9.5 Troponin I 9.500 H D 14.400 H D B-Natriuretic Peptide Total Protein Albumin Globulin Albumin/Globulin Ratio Triglycerides Cholesterol LDL Cholesterol VLDL Cholesterol HDL Cholesterol Heart Disease Risk Ratio Free T4 TSH 3rd Generation DS: Provider Date of admission: 12/29/16 03:46 Primary care physician: Shanel Zurita Attending physician on admission: Julia Grewal, Consults: 12/29/16 05:16 Consult to Pastoral Services [CONS] Routine Comment: Pastoral Screen: Request School Health Assistant Visit Pastoral Screen Source of Request: Patient 12/29/16 09:55 Consult to Cardiac Rehabilitation [CONS] Routine Reason for Cardiac Rehabilitation: Risk Factor Modification Appt Out Pt Cardiac Rehab Consult Comment: NSTEMI 12/29/16 12:35 Consult to Cardiac Rehabilitation [CONS] Routine Reason for Cardiac Rehabilitation: Risk Factor Modification Discharging clinician: OLEGARIO Villaseñor Expected date of discharge: 12/30/16
--- NOTE | 2016-12-30 12:42 | Cardiology Progress Note ---
Assessment and Plan - Time spent with patient Time spent with patient: Less than 30 minutes (1) NSTEMI (non-ST elevated myocardial infarction) Status: Acute Assessment and plan: SEE PLAN OF CARE LISTED BELOW. Current Visit: Yes (2) Paroxysmal atrial fibrillation Status: Chronic Assessment and plan: SEE PLAN OF CARE LISTED BELOW. Current Visit: No (3) Nonischemic cardiomyopathy Status: Chronic Assessment and plan: SEE PLAN OF CARE LISTED BELOW. Current Visit: No (4) Allergy to MERCED inhibitors Status: Chronic Assessment and plan: SEE PLAN OF CARE LISTED BELOW. Current Visit: Yes (5) Hypertension Status: Chronic Assessment and plan: SEE PLAN OF CARE LISTED BELOW. Current Visit: Yes (6) Acute systolic CHF (congestive heart failure) Status: Chronic Assessment and plan: SEE PLAN OF CARE LISTED BELOW. Current Visit: No (7) NSVT (nonsustained ventricular tachycardia) Status: Chronic Assessment and plan: SEE PLAN OF CARE LISTED BELOW. Current Visit: No (8) S/P implantation of automatic cardioverter/defibrillator (AICD) Status: Chronic Assessment and plan: SEE PLAN OF CARE LISTED BELOW. Current Visit: Yes (9) Obstructive sleep apnea Status: Chronic Assessment and plan: SEE PLAN OF CARE LISTED BELOW. Current Visit: No (10) PVD (peripheral vascular disease) Status: Chronic Assessment and plan: SEE PLAN OF CARE LISTED BELOW. Current Visit: Yes (11) COPD (chronic obstructive pulmonary disease) Status: Chronic Assessment and plan: SEE PLAN OF CARE LISTED BELOW. Current Visit: Yes (12) Coronary artery disease Problem details: PCI to RCA with BMS 03/2014 [facility] Status: Chronic Assessment and plan: SEE PLAN OF CARE LISTED BELOW. Current Visit: No Cardiology - PN: Subj Interval history: CARDIOLGIST: DR. BROCK ALLERGIC TO MERCED INHIBITORS Mr. Garcia is a 66 year old male who presented with chest discomfort. He states he woke up around midnight with a midsternal chest discomfort that he describes as a burning sensation. It was accompanied by shortness of breath and diaphoresis. He has a history of CAD, status post PCI March [address] Callahan at [place] with placement of Integrity [id number] bare- metal stent to ostial RCA. He also has a history of COPD, hyperlipidemia, hypertension, ischemic cardiomyopathy with recent EF 20% per echo 10/10/16 with PAP 78mmHg. He has paroxysmal atrial fibrillation and a history of nonsustained ventricular tachycardia. In May 2016, he underwent ICD implantation by Dr. Arias. During hospitalization, his troponin jumped to a peak of 14.4 and he was taken to the labeling associate by Dr. Brock for his non-Q-wave HI where he received a drug-eluting stent for a 60% ulcerated proximal LAD stenosis. Post catheterization, he has done well. His blood pressure was a little elevated and we adjusted his medications. His right groin cath site dressing was removed. There has been no bleeding, hematoma, or bruit. Femoral pulses are 3+. Peripheral pulses are present and palpable. Since admission, he has been in atrial fibrillation. He has been off of his anticoagulation previously since he'd had no recurrent episodes of AFib until now. We've increased his dose of Toprol XL and his heart rates have been better controlled, but he remains in atrial fibrillation. This morning, he had a 14 beat run of NSVT while sleeping. Will further discuss with Dr. Brock and await his recommendations. ASSESSMENT/PLAN: 1. NSTEMI - Patient received a stent to the proximal LAD and has done well. Cardiac enzymes are trending down appropriately. 2. PAROXYSMAL ATRIAL FIBRILLATION - Rates are better controlled since increasing his dose of Toprol XL but he remains in atrial fibrillation. Will further discuss with Dr. Brock the need for chronic anticoagulation. 3. NONISCHEMIC CARDIOMYOPATHY - Continue home medications. Will monitor and adjust as needed. 4. ALLERGY TO MERCED INHIBITORS - Allergic to benazepril. Reaction: ANGIOEDEMA 5. HYPERTENSION - Currently well controlled. Will monitor and adjust as needed. 6. SYSTOLIC CHF - Previous EF 20% per echocardiogram 10/10/16. He was also noted to have moderate LVH, mildly enlarged right and left atria, mild MR, normal aortic valve without stenosis or sclerosis, mild to moderate tricuspid regurgitation with velocities suggesting a PAP of 78 mmHg, and trace pulmonary valve regurgitation. Patient presented to [facility] facility with chest pain and acute on chronic systolic CHF with ProBNP 1755. He was given 1 dose of IV Lasix at [facility] facility. He has no overt signs of heart failure at present. He is breathing comfortably at this time. 7. NSVT - S/P dual chamber AICD implantation by Dr. Arais May 2016. 8. S/P AICD - S/P dual chamber AICD implantation by Dr. Arias May 2016. 9. OBSTRUCTIVE SLEEP APNEA - Noncompliant with CPAP. Patient currently wears O2 at night and has a follow up appointment within the next week for re-evaluation. 10. PERIPHERAL VASCULAR DISEASE - Peripheral pulses present and palpable. Will continue home medications. 11. COPD - O2 PRN. Continue home medications. 12. CORONARY ARTERY DISEASE - Status post bare-metal stent to ostial RCA March [address] Callahan now presenting with NSTEMI. Previous heart catheterization May 2016 revealed patent RCA stent. Catheterization 12/29/16 revealed patent mid RCA stent site with 40% stenosis beyond the stented segment. He received a successful proximal LAD stent to an ulcerated 60% stenosis. Exam (Progress Note) - Constitutional Vitals: Period Temp Pulse Resp BP Sys/Estrada Pulse Ox Last 24 Hr 96.2 F-97.6 F 60-105 16-20 123-148/70-105 91-100 Exam: General appearance: Pleasant and cooperative. Overweight, no acute distress. - Head Head exam: Present: normal inspection, normocephalic, atraumatic. Absent: hematoma, laceration - Eye Eye exam: Present: EOMI. Absent: conjunctival injection, nystagmus, periorbital swelling, scleral icterus, laceration to eyelids Pupils: Present: PERRL. Absent: constricted, dilated, fixed, irregular, unequal - ENT ENT exam: Present: normal exam, normal external ear exam - Neck Neck exam: Present: normal inspection. Absent: lymphadenopathy, meningismus, tenderness, thyromegaly - Respiratory Respiratory exam: Present: clear to auscultation bilaterally, decreased breath sounds posteriorly. Absent: accessory muscle use, chest wall tenderness - Cardiovascular Cardiovascular exam: Present: Irregular rate and rhythm. Absent: carotid bruit , gallop, JVD, rubs, murmur - GI/Abdominal GI/Abdominal exam: Present: normal bowel sounds, soft. Absent: distended, firm , guarding, hernia, mass, tenderness, rebound. - Extremities Exam Extremities exam: Present: normal inspection, normal capillary refill. Upper extremity pulses 2+. Lower extremity pulses 2+. Absent: calf tenderness, edema -Musculoskeletal Exam Musculoskeletal: Present: No Fluid Collection, No Pain, Normal Range of Motion - Back Exam Back exam: Present: normal inspection. Absent: muscle spasm, vertebral tenderness - Neurological Exam Neurological exam: Present: alert, oriented X3, grossly intact without resting or essential tremor - Psychiatric Psychiatric exam: Present: normal affect, normal mood - Skin Skin exam: Present: normal color, warm, dry, intact. Absent: cyanosis, diaphoretic, rash, urticaria -Right groin Right groin exam: No bleeding, hematoma, or bruit. Mild tenderness to palpation. Femoral pulse 3+. Peripheral pulses 2+ bilaterally. Result/EKG - Labs CBC & BMP: 12/30/16 04:57 12/30/16 04:57 Lab Results: I have reviewed the past 24 hour labs Labs: Laboratory Results - last 24 hr 12/29/16 12/29/16 12/30/16 13:27 20:16 04:57 WBC 9.1 RBC 5.47 Hgb 15.5 Hct 48.5 MCV 88.7 MCH 28 MCHC 32.0 RDW 15.5 Plt Count 228 MPV 11.8 Neut % (Auto) 68.6 Lymph % (Auto) 19.2 L [place] % (Auto) 10.5 Eos % (Auto) 0.7 Baso % (Auto) 0.7 Neut # (Auto) 6.3 Lymph # (Auto) 1.8 [place] # (Auto) 1.0 H Eos # (Auto) 0.1 Baso # (Auto) 0.1 Immature Gran % 0.3 Nucleated RBC % 0.0 Immature Gran # 0.03 Nucleated RBCs # 0.00 Sodium Potassium Chloride Carbon Dioxide Anion Gap BUN Creatinine GFR Calculation BUN/Creatinine Ratio Glucose Calculated Osmolality Calcium Magnesium Total Bilirubin AST ALT Alkaline Phosphatase Total Creatine Kinase 526 H 508 H CK-MB (CK-2) 50.1 H D 38.7 H D CK and CKMB Interp 9.5 7.6 Troponin I 14.400 H D 9.500 H D B-Natriuretic Peptide Total Protein Albumin Globulin Albumin/Globulin Ratio Triglycerides Cholesterol LDL Cholesterol VLDL Cholesterol HDL Cholesterol Heart Disease Risk Ratio Free T4 TSH 3rd Generation 12/30/16 12/30/16 12/30/16 04:57 04:57 04:57 WBC RBC Hgb Hct MCV MCH MCHC RDW Plt Count MPV Neut % (Auto) Lymph % (Auto) [place] % (Auto) Eos % (Auto) Baso % (Auto) Neut # (Auto) Lymph # (Auto) [place] # (Auto) Eos # (Auto) Baso # (Auto) Immature Gran % Nucleated RBC % Immature Gran # Nucleated RBCs # Sodium 139 140 Potassium 5.2 H 4.9 Chloride 105 105 Carbon Dioxide 21 22 Anion Gap 18.2 H 17.9 H BUN 21 H 22 H Creatinine 1.30 1.40 H GFR Calculation 78 71 BUN/Creatinine Ratio 16.00 15.00 Glucose 117 H 117 H Calculated Osmolality 280.5 282.4 Calcium 9.5 9.5 Magnesium 2.1 Total Bilirubin 1.20 H AST 62 H ALT 39 Alkaline Phosphatase 164 H Total Creatine Kinase CK-MB (CK-2) CK and CKMB Interp Troponin I B-Natriuretic Peptide 532 H Total Protein 6.4 Albumin 3.6 Globulin 2.8 Albumin/Globulin Ratio 1.2 Triglycerides 143 Cholesterol 130 LDL Cholesterol 71.0 VLDL Cholesterol 28.6 HDL Cholesterol 38 L Heart Disease Risk Ratio 3.42 Free T4 0.88 TSH 3rd Generation 1.040 - EKG EKG results: interpreted by me EKG shows: atrial fibrillation Specialty Discharge - Follow Up or Referrals Follow up with: Julia Grewal MD [Physician] - 02/28/17 10:20 am (We made an additional appt for you on 01/20/17 09:00.)
--- NOTE | 2016-12-30 14:41 | Cardiology Progress Note ---
Cardiology - PN: Subj Interval history: Cardiology note 66-year-old man status post non-Q-wave infarction peak CPK 526 and peak troponin 14.4. Cath yesterday showed ulcerated approximately stenosis which was stented with a 3.5 x 12 mm Alpine drug-coated stent postdilated 3.95 mm lumen. Good result obtained. The circumflex system remains patent and the mid right coronary stent site remains patent. Ejection fraction 15% with severe global hypokinesis Telemetry shows atrial fib controlled rate. He had an 11 beat run of nonsustained VT. Right groin soft and dry. No bruit or hematoma. Distal pulses are 1+. Decreased breath sounds but clear. Irregular rhythm no murmur Lab data today White count 9.1 hemoglobin 15.5 hematocrit 48.5 Sodium 140 potassium 4.9 chloride 105 CO2 22 BUN 22 creatinine 1.40 Magnesium 2.1 HDL 38 Peak CPK 526 peak troponin 14.4 Impression Nonischemic cardiamyopathy EF 15% Status post non-Q-wave infarction with proximal LAD stent December 29, 2016 Status post mid RCA stent 2014 at [place] Status post defibrillator Recurrent atrial fibrillation Angioedema with benazepril. Patient is not a candidate for MERCED inhibitor Plan Aspirin 81 mg daily and Plavix 75 mg daily Atorvastatin 10 mg daily Protonix 40 mg daily Stop metoprolol and begin carvedilol 3.125 mg twice daily IV amiodarone loading Begin Eliquis 5 mg twice daily Outpatient sleep study Discussed with patient and with his Leyda . BMP in a.m. Exam (Progress Note) - Constitutional Vitals: Period Temp Pulse Resp BP Sys/Estrada Pulse Ox Last 24 Hr 96.2 F-97.6 F 60-105 16-20 123-147/70-105 91-100 Result/EKG - Labs CBC & BMP: 12/30/16 04:57 12/30/16 04:57 Labs: Laboratory Results - last 24 hr 12/29/16 12/29/16 12/30/16 13:27 20:16 04:57 WBC 9.1 RBC 5.47 Hgb 15.5 Hct 48.5 MCV 88.7 MCH 28 MCHC 32.0 RDW 15.5 Plt Count 228 MPV 11.8 Neut % (Auto) 68.6 Lymph % (Auto) 19.2 L [place] % (Auto) 10.5 Eos % (Auto) 0.7 Baso % (Auto) 0.7 Neut # (Auto) 6.3 Lymph # (Auto) 1.8 [place] # (Auto) 1.0 H Eos # (Auto) 0.1 Baso # (Auto) 0.1 Immature Gran % 0.3 Nucleated RBC % 0.0 Immature Gran # 0.03 Nucleated RBCs # 0.00 Sodium Potassium Chloride Carbon Dioxide Anion Gap BUN Creatinine GFR Calculation BUN/Creatinine Ratio Glucose Calculated Osmolality Calcium Magnesium Total Bilirubin AST ALT Alkaline Phosphatase Total Creatine Kinase 526 H 508 H CK-MB (CK-2) 50.1 H D 38.7 H D CK and CKMB Interp 9.5 7.6 Troponin I 14.400 H D 9.500 H D B-Natriuretic Peptide Total Protein Albumin Globulin Albumin/Globulin Ratio Triglycerides Cholesterol LDL Cholesterol VLDL Cholesterol HDL Cholesterol Heart Disease Risk Ratio Free T4 TSH 3rd Generation 12/30/16 12/30/16 12/30/16 04:57 04:57 04:57 WBC RBC Hgb Hct MCV MCH MCHC RDW Plt Count MPV Neut % (Auto) Lymph % (Auto) [place] % (Auto) Eos % (Auto) Baso % (Auto) Neut # (Auto) Lymph # (Auto) [place] # (Auto) Eos # (Auto) Baso # (Auto) Immature Gran % Nucleated RBC % Immature Gran # Nucleated RBCs # Sodium 139 140 Potassium 5.2 H 4.9 Chloride 105 105 Carbon Dioxide 21 22 Anion Gap 18.2 H 17.9 H BUN 21 H 22 H Creatinine 1.30 1.40 H GFR Calculation 78 71 BUN/Creatinine Ratio 16.00 15.00 Glucose 117 H 117 H Calculated Osmolality 280.5 282.4 Calcium 9.5 9.5 Magnesium 2.1 Total Bilirubin 1.20 H AST 62 H ALT 39 Alkaline Phosphatase 164 H Total Creatine Kinase CK-MB (CK-2) CK and CKMB Interp Troponin I B-Natriuretic Peptide 532 H Total Protein 6.4 Albumin 3.6 Globulin 2.8 Albumin/Globulin Ratio 1.2 Triglycerides 143 Cholesterol 130 LDL Cholesterol 71.0 VLDL Cholesterol 28.6 HDL Cholesterol 38 L Heart Disease Risk Ratio 3.42 Free T4 0.88 TSH 3rd Generation 1.040 Specialty Discharge - Follow Up or Referrals Follow up with: Julia Grewal MD [Physician] - 02/28/17 10:20 am (We made an additional appt for you on 01/20/17 09:00.)
[2016-12-30] MEDS ORDERED: AMIODARONE INJ 150 MG in DEXTROSE 5% 100 ML IV ONE (14:42)
[2016-12-30] MEDS ORDERED: AMIODARONE INJ 450 MG in DEXTROSE 5% 241 ML IV SCH (15:00)
[2016-12-30] MEDS: CARVEDILOL 3.125 MG TABLET PO SCH ×2 (15:55→21:31)
[2016-12-30] MEDS: FUROSEMIDE 40 MG TABLET PO SCH (15:56)
[2016-12-30] MEDS: ONDANSETRON 4 MG/2 ML VIAL IV PRN (21:00)
[2016-12-30] MEDS: APIXABAN 5 MG TABLET PO SCH (21:31)
[2016-12-30] MEDS: MONTELUKAST 10 MG TABLET PO SCH (21:31)
[2016-12-30] MEDS: AMIODARONE INJ 450 MG in DEXTROSE 5% 241 ML IV SCH (21:34)
[2016-12-31 06:02] LABS: Basophils % 0.4 % (0.0-0.8); Eosinophils % 0.2 % (0.00-10.9); Immature Granulocytes % 0.5 %; Immature Granulocytes Absolute 0.06 #; Lymphocytes # 1.9 10*3/uL (1.4-4.0); Lymphocytes % 17.3 % (21.2-54.2); Mean Corpuscular Hemoglobin 28 PG (27-34); Mean Platelet Volume 12.4 FL (9.6-12.0); Monocytes # 1.4 10*3/uL (0.11-0.8); NRBC # 0.06 10*3/uL; Neutrophils # 7.6 10*3/uL (1.4-7.4); Neutrophils % 68.6 % (38.7-73.9); Platelet Count 257 T/CUMM (130-400); Red Blood Count 5.68 MC/CUMM (3.8-5.5); Red Cell Distribution Width 16.2 % (9.3-17.3); White Blood Count 11.1 T/CUMM (4-12)
[2016-12-31 06:32] LABS: Calcium 9.1 MG/DL (8.5-10.1); Magnesium 2.4 MG/DL (1.8-2.4); Osmolality,Calculated 276.1 MOS/KG (273-304); Potassium 4.9 MMOL/L (3.5-5.1)
[2016-12-31] MEDS: ALBUTEROL/IPRATROPIUM 3 ML NEB RESP TX SCH ×2 (08:03→19:22)
[2016-12-31] MEDS: LEVOTHYROXINE 88 MCG TABLET PO SCH (08:21)
[2016-12-31] MEDS: FUROSEMIDE 40 MG TABLET PO SCH (08:22)
[2016-12-31] MEDS: ASPIRIN EC 81 MG TABLET PO SCH (08:22)
[2016-12-31] MEDS: POTASSIUM CHLORIDE 20 MEQ TABLET PO SCH (08:22)
[2016-12-31] MEDS: APIXABAN 5 MG TABLET PO SCH ×2 (08:22→20:48)
[2016-12-31] MEDS: SPIRONOLACTONE 25 MG TABLET PO SCH (08:22)
[2016-12-31] MEDS: CARVEDILOL 3.125 MG TABLET PO SCH (08:22)
[2016-12-31] MEDS: ATORVASTATIN 10 MG TABLET PO SCH (08:23)
[2016-12-31] MEDS: CHOLECALCIFEROL 1,000 UNIT TABLET PO SCH (08:23)
[2016-12-31] MEDS: CLOPIDOGREL 75 MG TABLET PO SCH (08:23)
[2016-12-31] MEDS: ALLOPURINOL 300 MG TABLET PO SCH (08:23)
[2016-12-31] MEDS: MAGNESIUM OXIDE 400 MG TABLET PO SCH ×3 (08:23→20:43)
[2016-12-31] MEDS: PANTOPRAZOLE 40 MG TABLET PO SCH (08:23)
[2016-12-31] MEDS: BUDESONIDE/FORMOTEROL 160-4.5 INHALER 6 GM INH SCH ×2 (08:25→20:50)
--- NOTE | 2016-12-31 08:31 | XRay Report ---
XR chest 2V Indication: Shortness of breath. Comparison: Chest x-ray 10/24/2016 Technique: PA and lateral chest x-ray was performed. Findings: The heart is enlarged, stable. AICD is stable. Pulmonary vasculature demonstrates no specific abnormality. Hilar structures demonstrate fairly symmetric appearance. The lungs demonstrate fine reticular interstitial opacities in the cardiophrenic angle on the right. The appearance of the right lung base has improved since comparison study. Additionally, the left lung base suggests improved aeration. Bones and soft tissues demonstrate no evidence of acute pathology. Impression: 1. Appearance of the chest is most suggestive of improving pulmonary edema and congestive heart failure. 12/31/2016 8:28 AM PROCEDURE INTERPRETED AT [facility] DEPARTMENT OF RADIOLOGY Final Report Signed by: Dr. Eze Carvalho
--- NOTE | 2016-12-31 08:44 | EKG Report ---
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
[2016-12-31] MEDS ORDERED: MAGNESIUM HYDROXIDE SUSP 30 ML UDCUP PO PRN (10:01)
--- NOTE | 2016-12-31 10:03 | Cardiology Progress Note ---
Cardiology - PN: Subj Interval history: Cardiology note 66-year-old man status post non-Q-wave infarction with peak CPK 526 and peak troponin 14.4 Status post proximal LAD stent. EF 15% Recurrent atrial fibrillation with controlled rate occasional PVCs but no further nonsustained VT Blood pressure 146/80 O2 sat 97% 2 L Denies chest pain. Irregular rhythm no murmur Decreased breath sounds but clear Lab data today White count 11.1 hemoglobin 16.0 hematocrit 50.0 Sodium 135 potassium 4.9 chloride 102 CO2 19 BUN 25 creatinine 1.80 Glucose 145 magnesium 2.4 Impression Nonischemic cardiomyopathy EF 15% Status post non-Q-wave infarction with proximal LAD stent December 29, 2016 Status post mid RCA stent 2014 at [place] Status post ICD Recurrent atrial fibrillation Angioedema with benazepril. Patient is not a candidate for MERCED inhibitor Plan Aspirin 81 mg daily and Plavix 75 mg daily Atorvastatin 10 mg daily Protonix 40 mg daily Increase carvedilol 6.25 mg twice daily IV amiodarone loading Eliquis 5 mg twice daily Outpatient sleep study Discussed with patient and his Leyda Exam (Progress Note) - Constitutional Vitals: Period Temp Pulse Resp BP Sys/Estrada Pulse Ox Last 24 Hr 97.1 F-97.8 F 60-91 17-20 123-158/66-92 92-99 Result/EKG - Labs CBC & BMP: 12/31/16 04:56 12/31/16 04:56 Labs: Laboratory Results - last 24 hr 12/31/16 12/31/16 04:56 04:56 WBC 11.1 RBC 5.68 H Hgb 16.0 Hct 50.0 MCV 88.0 MCH 28 MCHC 32.0 RDW 16.2 Plt Count 257 MPV 12.4 H Neut % (Auto) 68.6 Lymph % (Auto) 17.3 L [place] % (Auto) 13.0 H Eos % (Auto) 0.2 Baso % (Auto) 0.4 Neut # (Auto) 7.6 H Lymph # (Auto) 1.9 [place] # (Auto) 1.4 H Eos # (Auto) 0.0 Baso # (Auto) 0.0 Immature Gran % 0.5 Nucleated RBC % 0.5 Immature Gran # 0.06 Nucleated RBCs # 0.06 Sodium 135 L Potassium 4.9 Chloride 102 Carbon Dioxide 19 L Anion Gap 18.9 H BUN 25 H Creatinine 1.80 H GFR Calculation 53 BUN/Creatinine Ratio 13.00 Glucose 145 H Calculated Osmolality 276.1 Calcium 9.1 Magnesium 2.4 Specialty Discharge - Follow Up or Referrals Follow up with: Julia Grewal MD [Physician] - 02/28/17 10:20 am (We made an additional appt for you on 01/20/17 09:00.)
[2016-12-31] MEDS: DOCUSATE SODIUM 100 MG CAPSULE PO SCH ×2 (11:10→20:46)
[2016-12-31] MEDS: CARVEDILOL 6.25 MG TABLET PO SCH ×2 (11:10→20:48)
[2016-12-31] MEDS: AMIODARONE INJ 450 MG in DEXTROSE 5% 241 ML IV SCH (18:17)
[2016-12-31] MEDS: MONTELUKAST 10 MG TABLET PO SCH (20:43)
[2017-01-01 05:17] LABS: Basophils # 0.1 10*3/uL (0.0-0.2); Basophils % 0.4 % (0.0-0.8); Eosinophils % 0.2 % (0.00-10.9); Hematocrit 48.5 VOL% (42.0-52.0); Hemoglobin 15.6 GM/DL (14.0-18.0); Immature Granulocytes % 0.6 %; Immature Granulocytes Absolute 0.07 #; Lymphocytes % 15.5 % (21.2-54.2); Mean Corpuscular HGB Conc 32.2 GM/DL (32-36); Mean Corpuscular Hemoglobin 28 PG (27-34); Mean Corpuscular Volume 87.2 FL (87-102); Mean Platelet Volume 11.7 FL (9.6-12.0); Monocytes # 1.4 10*3/uL (0.11-0.8); Monocytes % 11.3 % (1.7-12.7); NRBC # 0.11 10*3/uL; Neutrophils # 9.1 10*3/uL (1.4-7.4); Platelet Count 254 T/CUMM (130-400); Red Blood Count 5.56 MC/CUMM (3.8-5.5); Red Cell Distribution Width 15.9 % (9.3-17.3); White Blood Count 12.6 T/CUMM (4-12)
[2017-01-01] MEDS: AMIODARONE INJ 450 MG in DEXTROSE 5% 241 ML IV SCH ×2 (05:39→20:42)
[2017-01-01 05:49] LABS: Calcium 9.6 MG/DL (8.5-10.1); Magnesium 2.6 MG/DL (1.8-2.4); Osmolality,Calculated 278.2 MOS/KG (273-304); Potassium 5.4 MMOL/L (3.5-5.1)
[2017-01-01] MEDS: LEVOTHYROXINE 88 MCG TABLET PO SCH (06:39)
[2017-01-01] MEDS: ALBUTEROL/IPRATROPIUM 3 ML NEB RESP TX SCH ×2 (07:51→19:38)
--- NOTE | 2017-01-01 08:36 | EKG Report ---
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
[2017-01-01] MEDS: DOCUSATE SODIUM 100 MG CAPSULE PO SCH ×2 (08:50→20:42)
[2017-01-01] MEDS: APIXABAN 5 MG TABLET PO SCH ×2 (08:50→20:42)
[2017-01-01] MEDS: FUROSEMIDE 40 MG TABLET PO SCH (08:50)
[2017-01-01] MEDS: CARVEDILOL 6.25 MG TABLET PO SCH ×2 (08:50→20:42)
[2017-01-01] MEDS: ASPIRIN EC 81 MG TABLET PO SCH (08:50)
[2017-01-01] MEDS: CHOLECALCIFEROL 1,000 UNIT TABLET PO SCH (08:51)
[2017-01-01] MEDS: PANTOPRAZOLE 40 MG TABLET PO SCH (08:51)
[2017-01-01] MEDS: ATORVASTATIN 10 MG TABLET PO SCH (08:51)
[2017-01-01] MEDS: ALLOPURINOL 300 MG TABLET PO SCH (08:51)
[2017-01-01] MEDS: CLOPIDOGREL 75 MG TABLET PO SCH (08:51)
[2017-01-01] MEDS: BUDESONIDE/FORMOTEROL 160-4.5 INHALER 6 GM INH SCH ×2 (08:53→20:43)
--- NOTE | 2017-01-01 12:35 | Cardiology Progress Note ---
Cardiology - PN: Subj Interval history: Cardiology note 66-year-old man status post non-Q-wave infarction with peak CPK 526 and peak tropon 14.4 Status post proximal LAD stent Ejection fraction 15% recurrent atrial fibrillation and nonsustained VT Patient has converted chemically with IV amiodarone. Currently atrial pacing Blood pressure 124/78 Regular rhythm no gallop Decreased breath sounds but clear Right groin looks good. No bruit or hematoma. Lab data today White count 12.6 hemoglobin 15.6 hematocrit 48.5 Sodium 134 potassium 5.4 chloride 101 CO2 19 BUN 36 creatinine 2.10 magnesium 2.6 Peak CPK 526 Peak troponin 14.4 Impression Nonischemic cardia myopathy EF 15% Status post non-Q-wave infarction with proximal lad stent December 29, 2016 Status post mid RCA stent 2014 at [place] Status post ICD Recurrent atrial fibrillation Angioedema with benazepril. Patient not a candidate for MERCED inhibitor Plan Continue aspirin 81 mg daily and Plavix 75 mg daily Continue Protonix 40 mg daily Continue carvedilol 6.25 mg twice daily IV amiodarone loading, switch to p.o. tomorrow Eliquis 5 mg twice daily Will need outpatient sleep study Begin hydralazine 10 mg twice daily and titrate Stop spironolactone and KCl Stop mag oxide Recheck BMP and mag level in a.m. Discussed with patient and his Leyda Exam (Progress Note) - Constitutional Vitals: Period Temp Pulse Resp BP Sys/Estrada Pulse Ox Last 24 Hr 96.8 F-97.9 F 60-82 18-20 121-153/70-85 95-100 Result/EKG - Labs CBC & BMP: 01/01/17 04:20 01/01/17 04:20 Labs: Laboratory Results - last 24 hr 01/01/17 01/01/17 04:20 04:20 WBC 12.6 H RBC 5.56 H Hgb 15.6 Hct 48.5 MCV 87.2 MCH 28 MCHC 32.2 RDW 15.9 Plt Count 254 MPV 11.7 Neut % (Auto) 72.0 Lymph % (Auto) 15.5 L [place] % (Auto) 11.3 Eos % (Auto) 0.2 Baso % (Auto) 0.4 Neut # (Auto) 9.1 H Lymph # (Auto) 2.0 [place] # (Auto) 1.4 H Eos # (Auto) 0.0 Baso # (Auto) 0.1 Immature Gran % 0.6 Nucleated RBC % 0.9 Immature Gran # 0.07 Nucleated RBCs # 0.11 Sodium 134 L Potassium 5.4 H Chloride 101 Carbon Dioxide 19 L Anion Gap 19.4 H BUN 36 H D Creatinine 2.10 H GFR Calculation 44 BUN/Creatinine Ratio 17.00 Glucose 147 H Calculated Osmolality 278.2 Calcium 9.6 Magnesium 2.6 H Specialty Discharge - Follow Up or Referrals Follow up with: Julia Grewal MD [Physician] - 02/28/17 10:20 am (We made an additional appt for you on 01/20/17 09:00.)
[2017-01-01] MEDS: POTASSIUM CHLORIDE 20 MEQ TABLET PO SCH (13:37)
[2017-01-01] MEDS: MAGNESIUM OXIDE 400 MG TABLET PO SCH (13:37)
[2017-01-01] MEDS: SPIRONOLACTONE 25 MG TABLET PO SCH (13:37)
[2017-01-01] MEDS: ONDANSETRON 4 MG/2 ML VIAL IV PRN ×2 (14:26→18:38)
[2017-01-01] MEDS: MONTELUKAST 10 MG TABLET PO SCH (20:42)
[2017-01-01] MEDS: hydrALAZINE 10 MG TABLET PO SCH (20:47)
[2017-01-02] MEDS: ONDANSETRON 4 MG/2 ML VIAL IV PRN ×2 (01:13→10:56)
[2017-01-02 07:02] LABS: Basophils # 0.1 10*3/uL (0.0-0.2); Basophils % 0.3 % (0.0-0.8); Eosinophils % 0.1 % (0.00-10.9); Hematocrit 46.2 VOL% (42.0-52.0); Hemoglobin 14.7 GM/DL (14.0-18.0); Immature Granulocytes Absolute 0.16 #; Lymphocytes # 1.7 10*3/uL (1.4-4.0); Lymphocytes % 10.3 % (21.2-54.2); Mean Corpuscular HGB Conc 31.8 GM/DL (32-36); Mean Corpuscular Hemoglobin 29 PG (27-34); Mean Corpuscular Volume 89.5 FL (87-102); Mean Platelet Volume 11.7 FL (9.6-12.0); Monocytes # 2.4 10*3/uL (0.11-0.8); Monocytes % 14.6 % (1.7-12.7); NRBC # 0.67 10*3/uL; Neutrophils # 12.1 10*3/uL (1.4-7.4); Neutrophils % 73.7 % (38.7-73.9); Platelet Count 253 T/CUMM (130-400); Red Blood Count 5.16 MC/CUMM (3.8-5.5); Red Cell Distribution Width 16.2 % (9.3-17.3); White Blood Count 16.4 T/CUMM (4-12)
--- NOTE | 2017-01-02 07:30 | EKG Report ---
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
[2017-01-02 07:34] LABS: Calcium 8.9 MG/DL (8.5-10.1); Osmolality,Calculated 279.7 MOS/KG (273-304); Potassium 4.8 MMOL/L (3.5-5.1)
[2017-01-02] MEDS: ALBUTEROL/IPRATROPIUM 3 ML NEB RESP TX SCH ×2 (07:41→19:08)
[2017-01-02] MEDS: DOCUSATE SODIUM 100 MG CAPSULE PO SCH ×2 (08:29→20:56)
[2017-01-02] MEDS: APIXABAN 5 MG TABLET PO SCH ×2 (08:29→20:56)
[2017-01-02] MEDS: hydrALAZINE 10 MG TABLET PO SCH ×2 (08:29→20:54)
[2017-01-02] MEDS: ASPIRIN EC 81 MG TABLET PO SCH (08:29)
[2017-01-02] MEDS: FUROSEMIDE 40 MG TABLET PO SCH (08:29)
[2017-01-02] MEDS: ALLOPURINOL 300 MG TABLET PO SCH (08:29)
[2017-01-02] MEDS: LEVOTHYROXINE 88 MCG TABLET PO SCH (08:29)
[2017-01-02] MEDS: PANTOPRAZOLE 40 MG TABLET PO SCH (08:30)
[2017-01-02] MEDS: CARVEDILOL 6.25 MG TABLET PO SCH ×2 (08:30→20:58)
[2017-01-02] MEDS: CHOLECALCIFEROL 1,000 UNIT TABLET PO SCH (08:30)
[2017-01-02] MEDS: ATORVASTATIN 10 MG TABLET PO SCH (08:30)
[2017-01-02] MEDS: CLOPIDOGREL 75 MG TABLET PO SCH (08:30)
[2017-01-02] MEDS: BUDESONIDE/FORMOTEROL 160-4.5 INHALER 6 GM INH SCH ×2 (08:30→21:01)
[2017-01-02] MEDS: AMIODARONE INJ 450 MG in DEXTROSE 5% 241 ML IV SCH (08:33)
--- NOTE | 2017-01-02 11:38 | Cardiology Progress Note ---
<Latonya Robert E - Last Filed: 01/02/17 11:35> Assessment and Plan - Time spent with patient Time spent with patient: Less than 30 minutes (1) NSTEMI (non-ST elevated myocardial infarction) Status: Acute Assessment and plan: SEE PLAN OF CARE LISTED BELOW. Current Visit: Yes (2) Paroxysmal atrial fibrillation Status: Chronic Assessment and plan: SEE PLAN OF CARE LISTED BELOW. Current Visit: No (3) Ischemic cardiomyopathy Status: Chronic Assessment and plan: SEE PLAN OF CARE LISTED BELOW. 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 Current Visit: Yes (5) Hypertension Status: Chronic Assessment and plan: SEE PLAN OF CARE LISTED BELOW. Current Visit: Yes (6) Acute systolic CHF (congestive heart failure) Status: Chronic Assessment and plan: SEE PLAN OF CARE LISTED BELOW. Current Visit: No (7) NSVT (nonsustained ventricular tachycardia) Status: Chronic Assessment and plan: SEE PLAN OF CARE LISTED BELOW. Current Visit: No (8) S/P implantation of automatic cardioverter/defibrillator (AICD) Status: Chronic Assessment and plan: SEE PLAN OF CARE LISTED BELOW. Current Visit: Yes (9) Obstructive sleep apnea Status: Chronic Assessment and plan: SEE PLAN OF CARE LISTED BELOW. Current Visit: No (10) PVD (peripheral vascular disease) Status: Chronic Assessment and plan: SEE PLAN OF CARE LISTED BELOW. Current Visit: Yes (11) COPD (chronic obstructive pulmonary disease) Status: Chronic Assessment and plan: SEE PLAN OF CARE LISTED BELOW. Current Visit: Yes (12) Coronary artery disease Problem details: PCI to RCA with BMS 03/2014 [facility] Status: Chronic Assessment and plan: SEE PLAN OF CARE LISTED BELOW. Current Visit: No (13) Dyspnea Status: Acute Assessment and plan: SEE PLAN OF CARE LISTED BELOW. Current Visit: No (14) ARF (acute renal failure) Status: Acute Assessment and plan: SEE PLAN OF CARE LISTED BELOW. Current Visit: No Cardiology - PN: Subj Interval history: CARDIOLGIST: ALLERGIC TO MERCED INHIBITORS Mr. Garcia is a 66 year old male who presented with chest discomfort. He states he woke up around midnight with a midsternal chest discomfort that he describes as a burning sensation. It was accompanied by shortness of breath and diaphoresis. He has a history of CAD, status post PCI March [address] Callahan at [place] with placement of Integrity [id number] bare- metal stent to ostial RCA. He also has a history of COPD, hyperlipidemia, hypertension, ischemic cardiomyopathy with recent EF 20% per echo 10/10/16 with PAP 78mmHg. He has paroxysmal atrial fibrillation and a history of nonsustained ventricular tachycardia. In May 2016, he underwent dual chamber ICD implantation by Dr. Arias. During hospitalization, his troponin jumped to a peak of 14.4 and he was taken to the laboratory technical specialist by Dr. Brock for his non-Q-wave PA where he received a drug-eluting stent for a 60% ulcerated proximal LAD stenosis. Post catheterization, he has done well. His blood pressure was a little elevated and we adjusted his medications. His right groin cath site dressing was removed. There has been no bleeding, hematoma, or bruit. Femoral pulses are 3+. Peripheral pulses are present and palpable. Since admission, he has been in atrial fibrillation. He has been off of his anticoagulation previously since he'd had no recurrent episodes of AFib until now. Monday, he was started on IV amiodarone and has since converted to a paced sinus rhythm with rates in the 60's. His Eliquis was restarted and he's had no bleeding issues. H&H is stable. Yesterday and today, he has had episodes of vomiting. He also reports decreased bowel movements. He has no abdominal tenderness but reports yesterday he had a liquid stool. His WBC is a little elevated as well. We'll check a KUB and urinalysis. He's been afebrile and has no obvious signs of sepsis. His creatinine is elevated today. He does not appear dehydrated but it is certainly possible with his limited intake, continued Lasix, and episodes of vomiting. Dr. Arias to follow with further plan and addendum. ASSESSMENT/PLAN: 1. NSTEMI - Patient received a stent to the proximal LAD and has done well. 2. PAROXYSMAL ATRIAL FIBRILLATION - Now in paced sinus rhythm. Remains on amiodarone infusion currently. He was started back on Eliquis 5mg po BID and his Toprol XL was changed to Coreg. 3. ISCHEMIC CARDIOMYOPATHY - Continue home medications. Will monitor and adjust as needed. 4. ALLERGY TO MERCED INHIBITORS - Allergic to benazepril. Reaction: ANGIOEDEMA 5. HYPERTENSION - Currently well controlled. Will monitor and adjust as needed. 6. SYSTOLIC CHF - Previous EF 20% per echocardiogram 10/10/16. He was also noted to have moderate LVH, mildly enlarged right and left atria, mild MR, normal aortic valve without stenosis or sclerosis, mild to moderate tricuspid regurgitation with velocities suggesting a PAP of 78 mmHg, and trace pulmonary valve regurgitation. He has no overt signs of heart failure at present. He is breathing comfortably at this time. 7. NSVT - S/P dual chamber AICD implantation by Dr. Arias May 2016. 8. S/P AICD - S/P dual chamber AICD implantation by Dr. Arias May 2016. 9. OBSTRUCTIVE SLEEP APNEA - Noncompliant with CPAP. Patient currently wears O2 at night and has a follow up appointment within the next week for re-evaluation. 10. PERIPHERAL VASCULAR DISEASE - Peripheral pulses present and palpable. Will continue home medications. 11. COPD - O2 PRN. Continue home medications. 12. CORONARY ARTERY DISEASE - Status post bare-metal stent to ostial RCA March [address] Callahan now presenting with NSTEMI. Previous heart catheterization May 2016 revealed patent RCA stent. Catheterization 12/29/16 revealed patent mid RCA stent site with 40% stenosis beyond the stented segment. He received a successful proximal LAD stent to an ulcerated 60% stenosis. 13. SOB - Patient has had some shortness of breath since PCI on Monday. Will obtain echocardiogram to rule out tamponade following PCI. 14. ACUTE RENAL FAILURE - Creatinine has more than doubled since admission and is up to 3.2. Will consult Nephrology for their input. He did receive contrast from the cath and this could have had an affect on his renal function. Exam (Progress Note) - Constitutional Vitals: Period Temp Pulse Resp BP Sys/Estrada Pulse Ox Last 24 Hr 96.6 F-98.1 F 59-80 17-22 131-151/68-93 96-100 Exam: General appearance: Pleasant and cooperative. Overweight, no acute distress. - Head Head exam: Present: normal inspection, normocephalic, atraumatic. Absent: hematoma, laceration - Eye Eye exam: Present: EOMI. Absent: conjunctival injection, nystagmus, periorbital swelling, scleral icterus, laceration to eyelids Pupils: Present: PERRL. Absent: constricted, dilated, fixed, irregular, unequal - ENT ENT exam: Present: normal exam, normal external ear exam - Neck Neck exam: Present: normal inspection. Absent: lymphadenopathy, meningismus, tenderness, thyromegaly - Respiratory Respiratory exam: Present: clear to auscultation bilaterally, decreased breath sounds posteriorly. Absent: accessory muscle use, chest wall tenderness - Cardiovascular Cardiovascular exam: Present: Regular rate and rhythm. Absent: carotid bruit, gallop, JVD, rubs, murmur - GI/Abdominal GI/Abdominal exam: Present: Hypoactive bowel sounds, mild abdominal distention. Absent: firm, guarding, hernia, mass, tenderness, rebound. - Extremities Exam Extremities exam: Present: normal inspection, normal capillary refill. Upper extremity pulses 2+. Lower extremity pulses 2+. Absent: calf tenderness, edema -Musculoskeletal Exam Musculoskeletal: Present: No Fluid Collection, No Pain, Normal Range of Motion - Back Exam Back exam: Present: normal inspection. Absent: muscle spasm, vertebral tenderness - Neurological Exam Neurological exam: Present: alert, oriented X3, grossly intact without resting or essential tremor - Psychiatric Psychiatric exam: Present: normal affect, normal mood - Skin Skin exam: Present: normal color, warm, dry, intact. Absent: cyanosis, diaphoretic, rash, urticaria -Right groin Right groin exam: No bleeding, hematoma, or bruit. Mild tenderness to palpation. Femoral pulse 3+. Peripheral pulses 2+ bilaterally. Result/EKG - Labs CBC & BMP: 01/02/17 06:54 01/02/17 06:54 Lab Results: I have reviewed the past 24 hour labs Labs: Laboratory Results - last 24 hr 01/02/17 01/02/17 06:54 06:54 WBC 16.4 H D RBC 5.16 Hgb 14.7 Hct 46.2 MCV 89.5 MCH 29 MCHC 31.8 L RDW 16.2 Plt Count 253 MPV 11.7 Neut % (Auto) 73.7 Lymph % (Auto) 10.3 L Swift % (Auto) 14.6 H Eos % (Auto) 0.1 Baso % (Auto) 0.3 Neut # (Auto) 12.1 H Lymph # (Auto) 1.7 Swift # (Auto) 2.4 H Eos # (Auto) 0.0 Baso # (Auto) 0.1 Immature Gran % 1.0 Nucleated RBC % 4.1 Immature Gran # 0.16 Nucleated RBCs # 0.67 Sodium 131 L Potassium 4.8 Chloride 95 L Carbon Dioxide 23 Anion Gap 17.8 H BUN 55 H Creatinine 3.20 H GFR Calculation 27 BUN/Creatinine Ratio 17.00 Glucose 155 H Calculated Osmolality 279.7 Calcium 8.9 Magnesium 3.0 H - EKG EKG results: interpreted by me (paced with underlying sinus rhythm) Specialty Discharge - Follow Up or Referrals Follow up with: Julia Grewal MD [Physician] - 02/28/17 10:20 am (We made an additional appt for you on 01/20/17 09:00.) <Julia Grewal - Last Filed: 01/02/17 18:17> Cardiology - PN: Subj Interval history: I have personally interviewed and evaluated the patient, reviewed the chart and discussed medical decision-making with practitioner Jakob. I have read this note and agree with her documentation here in. He has acute renal insufficiency likely secondary to contrast-induced nephropathy. Today overall he is feeling a little bit better. We are going to change his amiodarone to p.o. I appreciate nephrology's input. His potassium has been borderline high and we will continue to monitor this and hold off on ARB for now. Exam (Progress Note) - Constitutional Vitals: Period Temp Pulse Resp BP Sys/Estrada Pulse Ox Last 24 Hr 97 F-98.1 F 60-80 17-22 131-140/68-83 95-100 Result/EKG - Labs CBC & BMP: 01/02/17 06:54 01/02/17 06:54 Labs: Laboratory Results - last 24 hr 01/02/17 01/02/17 01/02/17 06:54 06:54 15:05 WBC 16.4 H D RBC 5.16 Hgb 14.7 Hct 46.2 MCV 89.5 MCH 29 MCHC 31.8 L RDW 16.2 Plt Count 253 MPV 11.7 Neut % (Auto) 73.7 Lymph % (Auto) 10.3 L Swift % (Auto) 14.6 H Eos % (Auto) 0.1 Baso % (Auto) 0.3 Neut # (Auto) 12.1 H Lymph # (Auto) 1.7 Swift # (Auto) 2.4 H Eos # (Auto) 0.0 Baso # (Auto) 0.1 Immature Gran % 1.0 Nucleated RBC % 4.1 Immature Gran # 0.16 Nucleated RBCs # 0.67 Sodium 131 L Potassium 4.8 Chloride 95 L Carbon Dioxide 23 Anion Gap 17.8 H BUN 55 H Creatinine 3.20 H GFR Calculation 27 BUN/Creatinine Ratio 17.00 Glucose 155 H Calculated Osmolality 279.7 Calcium 8.9 Magnesium 3.0 H Free T4 0.88 TSH 3rd Generation 5.770 H Urine Color Urine Appearance Urine pH Ur Specific [place] Urine Protein Urine Glucose (UA) Urine Ketones Urine Blood Urine Nitrate Urine Bilirubin Urine Urobilinogen Urine Leukocytes Urine RBC Urine WBC Ur Squamous Epith Cells Urine Bacteria Hyaline Casts Urine Mucus Ur Culture Indicated? Ur Random Creatinine U Random Total Protein Ur Random Urea Nitrogn 01/02/17 01/02/17 01/02/17 Unknown Unknown Unknown WBC RBC Hgb Hct MCV MCH MCHC RDW Plt Count MPV Neut % (Auto) Lymph % (Auto) Swift % (Auto) Eos % (Auto) Baso % (Auto) Neut # (Auto) Lymph # (Auto) Swift # (Auto) Eos # (Auto) Baso # (Auto) Immature Gran % Nucleated RBC % Immature Gran # Nucleated RBCs # Sodium Potassium Chloride Carbon Dioxide Anion Gap BUN Creatinine GFR Calculation BUN/Creatinine Ratio Glucose Calculated Osmolality Calcium Magnesium Free T4 TSH 3rd Generation Urine Color Yellow Urine Appearance Slightly hazy Urine pH 5.0 Ur Specific [place] 1.016 Urine Protein Negative Urine Glucose (UA) Negative Urine Ketones Negative Urine Blood Negative Urine Nitrate Negative Urine Bilirubin Negative Urine Urobilinogen < 2.0 H Urine Leukocytes Negative Urine RBC 1 Urine WBC 2 Ur Squamous Epith Cells Occasional Urine Bacteria Occasional Hyaline Casts 78 Urine Mucus Occasional Ur Culture Indicated? Not indicated Ur Random Creatinine 157 U Random Total Protein 29 Ur Random Urea Nitrogn 01/02/17 Unknown WBC RBC Hgb Hct MCV MCH MCHC RDW Plt Count MPV Neut % (Auto) Lymph % (Auto) Swift % (Auto) Eos % (Auto) Baso % (Auto) Neut # (Auto) Lymph # (Auto) Swift # (Auto) Eos # (Auto) Baso # (Auto) Immature Gran % Nucleated RBC % Immature Gran # Nucleated RBCs # Sodium Potassium Chloride Carbon Dioxide Anion Gap BUN Creatinine GFR Calculation BUN/Creatinine Ratio Glucose Calculated Osmolality Calcium Magnesium Free T4 TSH 3rd Generation Urine Color Urine Appearance Urine pH Ur Specific [place] Urine Protein Urine Glucose (UA) Urine Ketones Urine Blood Urine Nitrate Urine Bilirubin Urine Urobilinogen Urine Leukocytes Urine RBC Urine WBC Ur Squamous Epith Cells Urine Bacteria Hyaline Casts Urine Mucus Ur Culture Indicated? Ur Random Creatinine U Random Total Protein Ur Random Urea Nitrogn 639
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
[2017-01-02 14:40] LABS: Apearance,Urine Slightly Hazy (Clear); Bacteria,Urine Occasional /HPF (Few); Bilirubin,Urine Negative (Negative); Blood, Urine Negative (Negative); Glucose,Urine (UA) Negative (Negative); Hyaline Casts,Urine 78 /LPF (0-3); Ketones,Urine Negative (Negative); Mucus,Urine Occasional /LPF (Occasional); Nitrite,Urine Negative (Negative); Protein,Urine Negative; RBC,Urine 1 /HPF (0-4); Squamous Epithelial Cell,Urine Occasional /HPF (0-10); Urine Color Yellow (Yellow); Urine Specific Gravity 1.016 (1.001-1.035); Urine Urobilinogen < 2.0 EU/DL (0.2-1.0); WBC,Urine 2 /HPF (0-6)
--- NOTE | 2017-01-02 14:53 | Nephrology Consult Note ---
History of Present Illness Chief complaint: Referred for increased creatinine History of present illness: Mr. Garcia is a 66 year old male admitted with NSTEMI, s/p cath with LAD stent, 170cc omnipaque on 12/29/16, Creatinine next day 1.4. BRISA risk calculator gives risk for BRISA 26% and risk for dialysis 1%. He was started on amiodarone loading gtt and now feels much more fatigued with N/V x 2 mornings. PMHx significant for severe pulmonary HTN last estimated PAP 78mmHg. EF 15%, ICD. DM2 , HTN. Creatine has increased each day 1.4->1.8->2.1->3.2 today. Timing is consistent with contrast induced nephropathy (BRISA). Had angioedema with ACEI. Not tried on ARB. Home Medications Medication Instructions Recorded Confirmed Type Aspirin EC Tab 81 mg PO QAM 05/24/16 12/29/16 History Levothyroxine Tab [Synthroid Tab] 88 mcg PO AC BREAKFAST 05/24/16 12/29/16 History Spironolactone [Aldactone] 25 mg PO DAILY tablet 06/07/16 12/29/16 Rx Magnesium Oxide 400 mg PO TID 07/18/16 12/29/16 History Furosemide 20 mg PO BID 07/30/16 12/29/16 History Ipratropium/Albuterol Inhaler 1 puff INH BID 10/10/16 12/29/16 History [Combivent Respimat Inhaler] Montelukast Tab [Singulair Tab] 10 mg PO BEDTIME 10/23/16 12/29/16 History Pantoprazole Sodium 40 mg PO DAILY 10/23/16 12/29/16 History Potassium Chloride 20 meq PO DAILY 10/23/16 12/29/16 History Allopurinol 300 mg PO DAILY 12/29/16 12/29/16 History Atorvastatin Calcium [Atorvastatin 10 mg PO DAILY 12/29/16 12/29/16 History Calcium] Budesonide/Formoterol 160-4.5 2 puff INH BID 12/29/16 12/29/16 History [Symbicort 160-4.5] Cholecalciferol (Vitamin D3) 1,000 unit PO DAILY 12/29/16 12/29/16 History [Vitamin D3] Digoxin Tab [Lanoxin Tab] 0.125 mg PO DAILY 12/29/16 12/29/16 History Metoprolol Succinate [Metoprolol 25 mg PO DAILY 12/29/16 12/29/16 History Succinate] Allergies Allergy/AdvReac Type Severity Reaction Status Date / Time MERCED Inhibitors Allergy Severe Swelling Verified 07/18/16 09:57 of Lip/Tongue/Throat benazepril Allergy Swelling Verified 07/18/16 09:58 of Lip/Tongue/Throat Medical,Surgical,& Family Hx - Medical History Cardio: History of: Cardiac Dysrhythmia (a-fib), CHF, CAD, Hypertension, ND, Pacemaker, PVD Neurology: No history of: Seizures Endocrine: History of: Thyroid Disorder Rheumatology: History of;: Gout Respiratory: History of: COPD, Obstructive Sleep Apnea - Surgical History Cardiac Surgeries: Sugical HX of: Cardiac Catheterization (PCI of RCA with bare- metal stent 2013), Internal Defibrillator - Family History Family History: Reports;: Family Cancer (brother-lymphoma), Family Diabetes ( brother), Family Heart Disease (mother-ND,brother and sister HTN, brother- heartvalve replacement), Family Hypertension (brother and sister) - Social History Smoking Status: Former smoker Frequency of Alcohol Use: None Type of Drug Use: None Exam - Vital Signs Vital signs: Period Temp Pulse Resp BP Sys/Estrada Pulse Ox Last 24 Hr 96.6 F-98.1 F 59-80 - 131-151/68-93 95-100 - General Appearance General appearance: well-developed, chronically ill EENT: ATNC, PERRL, mucous membranes dry, hearing intact, vision intact Neck: no JVD, no thyromegaly Respiratory: no kyphosis, clear Cardiology: holosystolic murmur, no rub, no edema Gastrointestinal: normoactive bowel sounds, no tenderness Integumentary: no rash, warm and dry Neurologic: no focal deficit, no asterixis, alert and oriented x3 Musculoskeletal: no deformities, no erythema Psychiatric: depressed, cooperative Results - Labs CBC & BMP: 01/02/17 06:54 01/02/17 06:54 Assessment and Plan (1) LAURA (acute kidney injury) Problem details: Timing consistent with BRISA. Check renal u/s rule out obstruction, mass, cyst, stone, hydronephrosis. Evaluate sizes, cortical thickness and echogenicity. Status: Acute Assessment and plan: No indication for renal replacement therapy. Can not rule out cardiorenal syndrome. Volume management is very tricky for this patient. Needs preload for severe pHTN, but CHF easily ensues. Very poor predicted one year survival with either cardiomyopathy with EF 15% or severe pHTN alone. Start misoprostol 400mcg po qid to help reverse renal vasoconstriction seen with BRISA. Renally dose all meds for eGFR 25cc/min. Avoid nephrotoxins to include NSAIDs, aminoglycosides and IV contrast if possible. Strict renal diet. Avoid high potassium containing foods such as prunes, which he got yesterday for constipation. Consider trial of low dose ARB (losartan 25mg daily) while an inpatient to assess for tolerability without angioedema. Current Visit: Yes Specialty Discharge - Follow Up or Referrals Follow up with: Julia Grewal MD [Physician] - 02/28/17 10:20 am (We made an additional appt for you on 01/20/17 09:00.)
[2017-01-02 15:47] LABS: Free T4 (Free Thyroxine) 0.88 NG/DL (0.76-1.46); Thyroid Stimulating Hormone 5.77 uIU/ml (0.358-3.74)
[2017-01-02] MEDS: miSOPROStol 200 MCG TABLET PO SCH ×2 (16:34→20:58)
--- NOTE | 2017-01-02 16:39 | Ultrasound Report ---
US renal Bilateral Indication: Acute kidney injury. Comparison: None. Technique: Using transcutaneous probe, routine renal ultrasound was performed. Ultrasound images were captured and stored. Findings: Right kidney measures 9.2 cm in length. Left kidney measures 10.5 cm in length. Neither kidney demonstrates hydronephrosis, perinephric fluid collection, or nephrolithiasis. Impression: 1. No significant abnormality of either kidney is demonstrated on ultrasound. 01/02/2017 4:36 PM PROCEDURE INTERPRETED AT [facility] DEPARTMENT OF RADIOLOGY Final Report Signed by: Dr. Eze Carvalho
[2017-01-02] MEDS: MONTELUKAST 10 MG TABLET PO SCH (20:57)
[2017-01-02] MEDS: AMIODARONE 200 MG TABLET PO SCH (20:59)
[2017-01-03] MEDS: ALBUTEROL/IPRATROPIUM 3 ML NEB RESP TX SCH ×2 (07:49→21:02)
[2017-01-03] MEDS: ALLOPURINOL 300 MG TABLET PO SCH (08:52)
[2017-01-03] MEDS: CLOPIDOGREL 75 MG TABLET PO SCH (08:52)
[2017-01-03] MEDS: miSOPROStol 200 MCG TABLET PO SCH ×4 (08:52→21:46)
[2017-01-03] MEDS: PANTOPRAZOLE 40 MG TABLET PO SCH (08:52)
[2017-01-03] MEDS: CARVEDILOL 6.25 MG TABLET PO SCH ×2 (08:52→21:49)
[2017-01-03] MEDS: ATORVASTATIN 10 MG TABLET PO SCH (08:52)
[2017-01-03] MEDS: AMIODARONE 200 MG TABLET PO SCH ×2 (08:52→21:47)
[2017-01-03] MEDS: hydrALAZINE 10 MG TABLET PO SCH ×2 (08:52→21:48)
[2017-01-03] MEDS: ASPIRIN EC 81 MG TABLET PO SCH (08:52)
[2017-01-03] MEDS: DOCUSATE SODIUM 100 MG CAPSULE PO SCH ×2 (08:53→21:47)
[2017-01-03] MEDS: LEVOTHYROXINE 88 MCG TABLET PO SCH (08:53)
[2017-01-03] MEDS: APIXABAN 5 MG TABLET PO SCH ×2 (08:53→21:46)
[2017-01-03] MEDS: BUDESONIDE/FORMOTEROL 160-4.5 INHALER 6 GM INH SCH ×2 (08:53→21:50)
[2017-01-03] MEDS: CHOLECALCIFEROL 1,000 UNIT TABLET PO SCH (08:53)
[2017-01-03 09:00] LABS: Basophils % 0.3 % (0.0-0.8); Eosinophils % 0.3 % (0.00-10.9); Hematocrit 43.6 VOL% (42.0-52.0); Hemoglobin 14.2 GM/DL (14.0-18.0); Immature Granulocytes Absolute 0.12 #; Lymphocytes # 1.2 10*3/uL (1.4-4.0); Lymphocytes % 10.4 % (21.2-54.2); Mean Corpuscular HGB Conc 32.6 GM/DL (32-36); Mean Corpuscular Hemoglobin 28 PG (27-34); Mean Platelet Volume 12.3 FL (9.6-12.0); Monocytes # 1.6 10*3/uL (0.11-0.8); Monocytes % 14.2 % (1.7-12.7); NRBC # 0.33 10*3/uL; Neutrophils # 8.6 10*3/uL (1.4-7.4); Neutrophils % 73.8 % (38.7-73.9); Red Blood Count 5.01 MC/CUMM (3.8-5.5); Red Cell Distribution Width 16.6 % (9.3-17.3); White Blood Count 11.6 T/CUMM (4-12)
[2017-01-03 09:01] LABS: Platelet Count 201 T/CUMM (130-400)
--- NOTE | 2017-01-03 09:20 | Nephrology Progress Note ---
Nephrology - PN: Subj Interval history: No change in symptoms. C/O fatigue. No renal labs this am. Fractional excretion of urea measured yesterday indicates prerenal azotemia (23%). Most likely due to poor C.O., cardiorenal syndrome. Exam (PN)-Nephrology - Vital Signs Vital signs: Period Temp Pulse Resp BP Sys/Estrada Pulse Ox Last 24 Hr 96.4 F-97.6 F 60-65 16-20 98-151/64-81 94-99 - General Appearance General appearance: well-developed, chronically ill EENT: ATNC, PERRL Neck: JVD, no thyromegaly Respiratory: no kyphosis, rales Cardiology: no murmurs, no rub Gastrointestinal: normoactive bowel sounds, no tenderness Integumentary: no rash, warm and dry Neurologic: no focal deficit, no asterixis, alert and oriented x3 Musculoskeletal: no deformities, no erythema Psychiatric: depressed, cooperative - Lab 01/03/17 08:18 01/02/17 06:54 Most recent lab results Calcium 8.9 MG/DL (8.5-10.1) 01/02/17 06:54 Magnesium 3.0 MG/DL (1.8-2.4) H 01/02/17 06:54 Assessment and Plan (1) LAURA (acute kidney injury) Problem details: Timing consistent with BRISA, no real increase in UOP with addition of misoprostol. Stop it. Renal u/s unremarkable other than >1cm size discrepancy. Status: Acute Assessment and plan: No indication for renal replacement therapy. Most likely cardiorenal syndrome. Volume management is very tricky for this patient. Needs preload for severe pHTN , but CHF easily ensues. Very poor predicted one year survival with either cardiomyopathy with EF 15% or severe pHTN alone. Stop misoprostol 400mcg. Renally dose all meds for eGFR 25cc/min. Avoid nephrotoxins to include NSAIDs, aminoglycosides and IV contrast if possible. Strict renal diet. Avoid high potassium containing foods such as prunes, which he got yesterday for constipation. Consider trial of low dose ARB (losartan 25mg daily) while an inpatient to assess for tolerability without angioedema. Current Visit: Yes Specialty Discharge - Follow Up or Referrals Follow up with: Julia Grewal MD [Physician] - 02/28/17 10:20 am (We made an additional appt for you on 01/20/17 09:00.)
--- NOTE | 2017-01-03 09:32 | ECHO Report ---
Timoteo Garcia 01/02/2017 Exam Date: 14:02 Referring Physician: Oneyda Mccray Technologist: KIMBERLY Age: 66 Ht (in): 68 Wt (lb): 205 MExam Location: [facility] Gender: Echo [id number]: Atrial fibrillation, Chest pain, Indications:unspecified, Non-ST elevation (NSTEMI) myocardial infarction, Essential (primary) hypertension, Peripheral vascular disease, unspecified, Dyspnea, unspecified, CAD With prev stent, COPD, Acute kidney failure, unspecified BP: 137 / 71 HR: 60 SinusRhythm: PoorTechnical Quality: IMPRESSIONS Severely reduced LV systolic function, ejection fraction 20%. Diastolic parameters are indeterminate. Moderate concentric left ventricular hypertrophy. Mildly dilated right ventricle. Moderate to severe biatrial enlargement. Moderate mitral regurgitation. Moderate to severe tricuspid regurgitation. Trace pulmonic regurgitation. Right side electronic leads consistent with pacemaker or ICD. MEASUREMENTS (Male / Female) Normal Values 2D ECHO LV Diastolic Diameter PLAX 4.4 cm 4.2 - 5.9 / 3.9 - 5.3 cm LV Systolic Diameter PLAX 2.8 cm LV Fractional Shortening PLAX 36.3 % IVS Diastolic Thickness 1.5 cm 0.6 - 1.0 / 0.6 - 0.9 cm LVPW Diastolic Thickness 1.6 cm 0.6 - 1.0 / 0.6 - 0.9 cm RV Internal Dim ED PLAX 3.6 cm Aortic Root Diameter 3.1 cm LA Systolic Diameter LX 5.0 cm 3.0 - 4.0 / 2.7 - 3.8 cm DOPPLER TR Peak Velocity 243.0 cm/s TR Peak Gradient 23.6 mmHg FINDINGS Left Ventricle Normal left ventricular cavity size. Moderate left ventricular hypertrophy. Left ventricular ejection fraction is estimated at 20%. Right Ventricle Mildly increased right ventricular size. Catheter/pacemaker wire visualized in the right ventricle. Right Atrium Severely increased right atrial size. Catheter/pacemaker wire in the right atrial cavity. Left Atrium Moderately increased left atrial size. Mitral Valve Morphologically normal mitral valve. Moderate mitral valve regurgitation. Aortic Valve Morphologically normal aortic valve without significant sclerosis or stenosis. There is no aortic regurgitation. Tricuspid Valve Morphologically normal tricuspid valve. [id number] tricuspid valve regurgitation. Tricuspid regurgitation velocities suggest a PAP of 34 mmHg. Pulmonic Valve Not well seen. Trace pulmonary valve regurgitation. Pericardium Normal pericardium without effusion. Aorta Normal ascending aorta dimension. Julia Grewal MD (Electronically Signed) 03 Jan 2017 09:31Final Date:
[2017-01-03 09:45] LABS: Calcium 8.6 MG/DL (8.5-10.1); Magnesium 2.8 MG/DL (1.8-2.4); Osmolality,Calculated 271.4 MOS/KG (273-304); Potassium 4.8 MMOL/L (3.5-5.1)
--- NOTE | 2017-01-03 11:22 | Cardiology Progress Note ---
<Latonya Robert E - Last Filed: 01/03/17 11:40> Assessment and Plan - Time spent with patient Time spent with patient: Less than 30 minutes (1) NSTEMI (non-ST elevated myocardial infarction) Status: Acute Assessment and plan: SEE PLAN OF CARE LISTED BELOW. Current Visit: Yes (2) Paroxysmal atrial fibrillation Status: Chronic Assessment and plan: SEE PLAN OF CARE LISTED BELOW. Current Visit: No (3) Ischemic cardiomyopathy Status: Chronic Assessment and plan: SEE PLAN OF CARE LISTED BELOW. 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 Current Visit: Yes (5) Hypertension Status: Chronic Assessment and plan: SEE PLAN OF CARE LISTED BELOW. Current Visit: Yes (6) Acute systolic CHF (congestive heart failure) Status: Chronic Assessment and plan: SEE PLAN OF CARE LISTED BELOW. Current Visit: No (7) NSVT (nonsustained ventricular tachycardia) Status: Chronic Assessment and plan: SEE PLAN OF CARE LISTED BELOW. Current Visit: No (8) S/P implantation of automatic cardioverter/defibrillator (AICD) Status: Chronic Assessment and plan: SEE PLAN OF CARE LISTED BELOW. Current Visit: Yes (9) Obstructive sleep apnea Status: Chronic Assessment and plan: SEE PLAN OF CARE LISTED BELOW. Current Visit: No (10) PVD (peripheral vascular disease) Status: Chronic Assessment and plan: SEE PLAN OF CARE LISTED BELOW. Current Visit: Yes (11) COPD (chronic obstructive pulmonary disease) Status: Chronic Assessment and plan: SEE PLAN OF CARE LISTED BELOW. Current Visit: Yes (12) Coronary artery disease Problem details: PCI to RCA with BMS 03/2014 [facility] Status: Chronic Assessment and plan: SEE PLAN OF CARE LISTED BELOW. Current Visit: No (13) Dyspnea Status: Acute Assessment and plan: SEE PLAN OF CARE LISTED BELOW. Current Visit: No (14) ARF (acute renal failure) Status: Acute Assessment and plan: SEE PLAN OF CARE LISTED BELOW. Current Visit: No Cardiology - PN: Subj Interval history: CARDIOLGIST: ALLERGIC TO MERCED INHIBITORS Mr. Garcia is a 66 year old male who presented with chest discomfort. He states he woke up around midnight with a midsternal chest discomfort that he describes as a burning sensation. It was accompanied by shortness of breath and diaphoresis. He has a history of CAD, status post PCI March [address] Callahan at [facility] with placement of Integrity 2.80H28ic bare- metal stent to ostial RCA. He also has a history of COPD, hyperlipidemia, hypertension, ischemic cardiomyopathy with recent EF 20% per echo 10/10/16 with PAP 78mmHg. He has paroxysmal atrial fibrillation and a history of nonsustained ventricular tachycardia. In May 2016, he underwent dual chamber ICD implantation by Dr. Arias. During hospitalization, his troponin jumped to a peak of 14.4 and he was taken to the senior label specialist by Dr. Brock for his non-Q-wave MS where he received a drug-eluting stent for a 60% ulcerated proximal LAD stenosis. Post catheterization, he has done well. His blood pressure was a little elevated and we adjusted his medications. His right groin cath site dressing was removed. There has been no bleeding, hematoma, or bruit. Femoral pulses are 3+. Peripheral pulses are present and palpable. Since admission, he has been in atrial fibrillation. He has been off of his anticoagulation previously since he'd had no recurrent episodes of AFib until now. Monday, he was started on IV amiodarone and has since converted to a paced sinus rhythm with rates in the 60's. His Eliquis was restarted and he's had no bleeding issues. H&H is stable. He had some issues with vomiting but KUB was done and showed no acute abnormality. His WBC was a little elevated but has now returned to normal. He's been afebrile and has no obvious signs of sepsis. Urinalysis did not show UTI. His creatinine has been elevated and nephrology was consulted to see him. This is likely secondary to contrast-induced nephropathy. Mr. Garcia reports he is feeling somewhat better today. He has had no further episodes of vomiting. He continues to have some DANIELS but he also has a severely depressed EF. We will ask physical therapy to begin working with him. He continues to be in an atrial paced rhythm with underlying sinus rhythm. Dr. Grewal to follow with further plan and addendum. ASSESSMENT/PLAN: 1. NSTEMI - Patient received a stent to the proximal LAD and has done well. 2. PAROXYSMAL ATRIAL FIBRILLATION - Now in paced sinus rhythm. His amiodarone has been changed to PO. He was started back on Eliquis 5mg po BID and his Toprol XL was changed to Coreg. 3. ISCHEMIC CARDIOMYOPATHY - Continue home medications. Will monitor and adjust as needed. 4. ALLERGY TO MERCED INHIBITORS - Allergic to benazepril. Reaction: ANGIOEDEMA 5. HYPERTENSION - Currently well controlled. Will monitor and adjust as needed. 6. SYSTOLIC CHF - Previous EF 20% per echocardiogram 10/10/16. He was also noted to have moderate LVH, mildly enlarged right and left atria, mild MR, normal aortic valve without stenosis or sclerosis, mild to moderate tricuspid regurgitation with velocities suggesting a PAP of 78 mmHg, and trace pulmonary valve regurgitation. He has no overt signs of heart failure at present. He is breathing comfortably at this time. 7. NSVT - S/P dual chamber AICD implantation by Dr. Arias May 2016. 8. S/P AICD - S/P dual chamber AICD implantation by Dr. Arias May 2016. 9. OBSTRUCTIVE SLEEP APNEA - Noncompliant with CPAP. Patient currently wears O2 at night and has a follow up appointment within the next week for re-evaluation. 10. PERIPHERAL VASCULAR DISEASE - Peripheral pulses present and palpable. Will continue home medications. 11. COPD - O2 PRN. Continue home medications. 12. CORONARY ARTERY DISEASE - Status post bare-metal stent to ostial RCA March [address] Callahan now presenting with NSTEMI. Previous heart catheterization May 2016 revealed patent RCA stent. Catheterization 12/29/16 revealed patent mid RCA stent site with 40% stenosis beyond the stented segment. He received a successful proximal LAD stent to an ulcerated 60% stenosis. 13. SOB - Patient has had some shortness of breath since PCI on Monday. Echocardiogram was repeated on 01/02/17 and revealed no evidence of tamponade. We will have physical therapy begin working with him. 14. ACUTE RENAL FAILURE - Creatinine has more than doubled since admission and peaked at 3.2. Now down to 2.8. Nephrology has seen him in consultation. Fractional excretion of urea measured yesterday indicates prerenal azotemia (23% ). Most likely due to poor C.O., cardiorenal syndrome. We appreciate their input. We will continue to hold off on ARB therapy. Exam (Progress Note) - Constitutional Vitals: Period Temp Pulse Resp BP Sys/Estrada Pulse Ox Last 24 Hr 96.4 F-97.6 F 60-65 16-20 98-151/64-81 94-99 Exam: General appearance: Pleasant and cooperative. Overweight, no acute distress. - Head Head exam: Present: normal inspection, normocephalic, atraumatic. Absent: hematoma, laceration - Eye Eye exam: Present: EOMI. Absent: conjunctival injection, nystagmus, periorbital swelling, scleral icterus, laceration to eyelids Pupils: Present: PERRL. Absent: constricted, dilated, fixed, irregular, unequal - ENT ENT exam: Present: normal exam, normal external ear exam - Neck Neck exam: Present: normal inspection. Absent: lymphadenopathy, meningismus, tenderness, thyromegaly - Respiratory Respiratory exam: Present: Crackles noted to right base posteriorly, otherwise clear to auscultation bilaterally. Absent: accessory muscle use, chest wall tenderness - Cardiovascular Cardiovascular exam: Present: Regular rate and rhythm. Absent: carotid bruit, gallop, JVD, rubs, murmur - GI/Abdominal GI/Abdominal exam: Present: Hypoactive bowel sounds, mild abdominal distention. Absent: firm, guarding, hernia, mass, tenderness, rebound. - Extremities Exam Extremities exam: Present: normal inspection, normal capillary refill. Upper extremity pulses 2+. Lower extremity pulses 2+. Absent: calf tenderness, edema -Musculoskeletal Exam Musculoskeletal: Present: No Fluid Collection, No Pain, Normal Range of Motion - Back Exam Back exam: Present: normal inspection. Absent: muscle spasm, vertebral tenderness - Neurological Exam Neurological exam: Present: alert, oriented X3, grossly intact without resting or essential tremor - Psychiatric Psychiatric exam: Present: normal affect, normal mood - Skin Skin exam: Present: normal color, warm, dry, intact. Absent: cyanosis, diaphoretic, rash, urticaria -Right groin Right groin exam: No bleeding, hematoma, or bruit. Mild tenderness to palpation. Femoral pulse 3+. Peripheral pulses 2+ bilaterally. Result/EKG - Labs CBC & BMP: 01/03/17 08:18 01/03/17 08:18 Lab Results: I have reviewed the past 24 hour labs Labs: Laboratory Results - last 24 hr 01/02/17 01/02/17 01/02/17 15:05 15:05 Unknown WBC RBC Hgb Hct MCV MCH MCHC RDW Plt Count MPV Neut % (Auto) Lymph % (Auto) [place] % (Auto) Eos % (Auto) Baso % (Auto) Neut # (Auto) Lymph # (Auto) [place] # (Auto) Eos # (Auto) Baso # (Auto) Immature Gran % Nucleated RBC % Immature Gran # Nucleated RBCs # Sodium Potassium Chloride Carbon Dioxide Anion Gap BUN Creatinine GFR Calculation BUN/Creatinine Ratio Glucose Calculated Osmolality Calcium Magnesium Free T4 0.88 TSH 3rd Generation 5.770 H Urine Color Yellow Urine Appearance Slightly hazy Urine pH 5.0 Ur Specific [place] 1.016 Urine Protein Negative Urine Glucose (UA) Negative Urine Ketones Negative Urine Blood Negative Urine Nitrate Negative Urine Bilirubin Negative Urine Urobilinogen < 2.0 H Urine Leukocytes Negative Urine RBC 1 Urine WBC 2 Ur Squamous Epith Cells Occasional Urine Bacteria Occasional Hyaline Casts 78 Urine Mucus Occasional Ur Culture Indicated? Not indicated Urine Eosinophils 0 Ur Random Creatinine U Random Total Protein Ur Random Urea Nitrogn 01/02/17 01/02/17 01/02/17 Unknown Unknown Unknown WBC RBC Hgb Hct MCV MCH MCHC RDW Plt Count MPV Neut % (Auto) Lymph % (Auto) [place] % (Auto) Eos % (Auto) Baso % (Auto) Neut # (Auto) Lymph # (Auto) [place] # (Auto) Eos # (Auto) Baso # (Auto) Immature Gran % Nucleated RBC % Immature Gran # Nucleated RBCs # Sodium Potassium Chloride Carbon Dioxide Anion Gap BUN Creatinine GFR Calculation BUN/Creatinine Ratio Glucose Calculated Osmolality Calcium Magnesium Free T4 TSH 3rd Generation Urine Color Urine Appearance Urine pH Ur Specific [place] Urine Protein Urine Glucose (UA) Urine Ketones Urine Blood Urine Nitrate Urine Bilirubin Urine Urobilinogen Urine Leukocytes Urine RBC Urine WBC Ur Squamous Epith Cells Urine Bacteria Hyaline Casts Urine Mucus Ur Culture Indicated? Urine Eosinophils Ur Random Creatinine 157 U Random Total Protein 29 Ur Random Urea Nitrogn 639 01/03/17 01/03/17 08:18 08:18 WBC 11.6 RBC 5.01 Hgb 14.2 Hct 43.6 MCV 87.0 MCH 28 MCHC 32.6 RDW 16.6 Plt Count 201 D MPV 12.3 H Neut % (Auto) 73.8 Lymph % (Auto) 10.4 L [place] % (Auto) 14.2 H Eos % (Auto) 0.3 Baso % (Auto) 0.3 Neut # (Auto) 8.6 H Lymph # (Auto) 1.2 L [place] # (Auto) 1.6 H Eos # (Auto) 0.0 Baso # (Auto) 0.0 Immature Gran % 1.0 Nucleated RBC % 2.8 Immature Gran # 0.12 Nucleated RBCs # 0.33 Sodium 126 L Potassium 4.8 Chloride 92 L Carbon Dioxide 22 Anion Gap 16.8 H BUN 62 H Creatinine 2.80 H GFR Calculation 31 BUN/Creatinine Ratio 22.00 H Glucose 117 H Calculated Osmolality 271.4 L Calcium 8.6 Magnesium 2.8 H Free T4 TSH 3rd Generation Urine Color Urine Appearance Urine pH Ur Specific [place] Urine Protein Urine Glucose (UA) Urine Ketones Urine Blood Urine Nitrate Urine Bilirubin Urine Urobilinogen Urine Leukocytes Urine RBC Urine WBC Ur Squamous Epith Cells Urine Bacteria Hyaline Casts Urine Mucus Ur Culture Indicated? Urine Eosinophils Ur Random Creatinine U Random Total Protein Ur Random Urea Nitrogn - EKG EKG results: interpreted by me (atrial paced with underlying sinus rhythm.) Specialty Discharge - Follow Up or Referrals Follow up with: Julia Grewal MD [Physician] - 02/28/17 10:20 am (We made an additional appt for you on 01/20/17 09:00.) <Julia Grewal - Last Filed: 01/03/17 16:33> Cardiology - PN: Subj Interval history: I have personally interviewed and evaluated the patient, reviewed the chart and discussed medical decision-making with practitioner Jakob. I have read this note and agree with her documentation here in. Exam (Progress Note) - Constitutional Vitals: Period Temp Pulse Resp BP Sys/Estrada Pulse Ox Last 24 Hr 96.3 F-97.6 F 60-65 16-21 98-151/64-81 92-100 Result/EKG - Labs CBC & BMP: 01/03/17 08:18 01/03/17 08:18 Labs: Laboratory Results - last 24 hr 01/02/17 01/02/17 01/02/17 15:05 Unknown Unknown WBC RBC Hgb Hct MCV MCH MCHC RDW Plt Count MPV Neut % (Auto) Lymph % (Auto) [place] % (Auto) Eos % (Auto) Baso % (Auto) Neut # (Auto) Lymph # (Auto) [place] # (Auto) Eos # (Auto) Baso # (Auto) Immature Gran % Nucleated RBC % Immature Gran # Nucleated RBCs # Sodium Potassium Chloride Carbon Dioxide Anion Gap BUN Creatinine GFR Calculation BUN/Creatinine Ratio Glucose Calculated Osmolality Calcium Magnesium Urine Eosinophils 0 Ur Random Creatinine 157 U Random Total Protein 29 Ur Random Urea Nitrogn 01/02/17 01/03/17 01/03/17 Unknown 08:18 08:18 WBC 11.6 RBC 5.01 Hgb 14.2 Hct 43.6 MCV 87.0 MCH 28 MCHC 32.6 RDW 16.6 Plt Count 201 D MPV 12.3 H Neut % (Auto) 73.8 Lymph % (Auto) 10.4 L [place] % (Auto) 14.2 H Eos % (Auto) 0.3 Baso % (Auto) 0.3 Neut # (Auto) 8.6 H Lymph # (Auto) 1.2 L [place] # (Auto) 1.6 H Eos # (Auto) 0.0 Baso # (Auto) 0.0 Immature Gran % 1.0 Nucleated RBC % 2.8 Immature Gran # 0.12 Nucleated RBCs # 0.33 Sodium 126 L Potassium 4.8 Chloride 92 L Carbon Dioxide 22 Anion Gap 16.8 H BUN 62 H Creatinine 2.80 H GFR Calculation 31 BUN/Creatinine Ratio 22.00 H Glucose 117 H Calculated Osmolality 271.4 L Calcium 8.6 Magnesium 2.8 H Urine Eosinophils Ur Random Creatinine U Random Total Protein Ur Random Urea Nitrogn 639
--- NOTE | 2017-01-03 13:14 | XRay Report ---
XR chest 2V Indication: SOB, productive cough Comparison: Chest x-ray dated December 31, 2016 Technique: Frontal and lateral views of the chest Findings: Continued moderate cardiomegaly. Cardiac pacemaker apparatus appears unchanged. Continued improvement in pulmonary edema with little residual remaining. Small bilateral pleural fluid remains. Visualized osseous and surrounding soft tissue structures appear grossly unchanged. IMPRESSION: As above. PROCEDURE INTERPRETED AT [facility] DEPARTMENT OF RADIOLOGY Final Report Signed by: Dr Humble Lawson
[2017-01-03] MEDS: MONTELUKAST 10 MG TABLET PO SCH (21:48)
[2017-01-04] MEDS: ALBUTEROL/IPRATROPIUM 3 ML NEB RESP TX SCH (07:02)
[2017-01-04 07:28] LABS: Basophils # 0.1 10*3/uL (0.0-0.2); Basophils % 0.4 % (0.0-0.8); Eosinophils # 0.1 10*3/uL (0.0-0.87); Eosinophils % 0.4 % (0.00-10.9); Hematocrit 41.9 VOL% (42.0-52.0); Hemoglobin 13.7 GM/DL (14.0-18.0); Immature Granulocytes Absolute 0.12 #; Lymphocytes # 1.5 10*3/uL (1.4-4.0); Lymphocytes % 13.3 % (21.2-54.2); Mean Corpuscular HGB Conc 32.7 GM/DL (32-36); Mean Corpuscular Hemoglobin 28 PG (27-34); Mean Corpuscular Volume 86.4 FL (87-102); Mean Platelet Volume 11.8 FL (9.6-12.0); Monocytes # 1.7 10*3/uL (0.11-0.8); Monocytes % 14.7 % (1.7-12.7); NRBC # 0.35 10*3/uL; Neutrophils % 70.2 % (38.7-73.9); Platelet Count 218 T/CUMM (130-400); Red Blood Count 4.85 MC/CUMM (3.8-5.5); Red Cell Distribution Width 16.4 % (9.3-17.3); White Blood Count 11.5 T/CUMM (4-12)
[2017-01-04 07:55] LABS: Calcium 8.7 MG/DL (8.5-10.1); Magnesium 2.8 MG/DL (1.8-2.4); Osmolality,Calculated 273.1 MOS/KG (273-304)
--- NOTE | 2017-01-04 08:39 | Nephrology Progress Note ---
Nephrology - PN: Subj Interval history: Pt states he feels better. Having some problems swallowing solid foods, Ensure going down OK. Appetite poor. Creatinine down to 2.0. Na low at 128 but improved from 126 yesterday, c/w too much free water on board. Not on diuretic. Exam (PN)-Nephrology - Vital Signs Vital signs: Period Temp Pulse Resp BP Sys/Estrada Pulse Ox Last 24 Hr 96.2 F-97.1 F 60-72 16-21 114-154/67-74 92-99 - General Appearance General appearance: well-developed, chronically ill EENT: ATNC, PERRL Neck: JVD, no thyromegaly Respiratory: no kyphosis, clear Cardiology: no murmurs, no rub, edema Gastrointestinal: normoactive bowel sounds, no tenderness Integumentary: no rash, warm and dry Neurologic: no focal deficit, no asterixis, alert and oriented x3 Musculoskeletal: no deformities, no erythema Psychiatric: mood/affect appropriate, cooperative - Lab 01/04/17 07:14 01/04/17 07:14 Most recent lab results Calcium 8.7 MG/DL (8.5-10.1) 01/04/17 07:14 Magnesium 2.8 MG/DL (1.8-2.4) H 01/04/17 07:14 Assessment and Plan (1) LAURA (acute kidney injury) Problem details: Timing consistent with BRISA. Improving slowly.Renal u/s unremarkable other than >1cm size discrepancy. Status: Acute Assessment and plan: No indication for renal replacement therapy. Very poor predicted one year survival with either cardiomyopathy with EF 15% or severe pHTN alone. Renally dose all meds for eGFR 45cc/min. Avoid nephrotoxins to include NSAIDs, aminoglycosides and IV contrast if possible. Strict renal diet. Avoid high potassium containing foods such as prunes, which he got yesterday for constipation. Consider trial of low dose ARB (losartan 25mg daily) while an inpatient to assess for tolerability without angioedema. Current Visit: Yes Specialty Discharge - Follow Up or Referrals Follow up with: Julia Grewal MD [Physician] - 02/28/17 10:20 am (We made an additional appt for you on 01/20/17 09:00.)
[2017-01-04] MEDS: ASPIRIN EC 81 MG TABLET PO SCH (09:18)
[2017-01-04] MEDS: CARVEDILOL 6.25 MG TABLET PO SCH ×2 (09:18→18:10)
[2017-01-04] MEDS: BUDESONIDE/FORMOTEROL 160-4.5 INHALER 6 GM INH SCH (09:18)
[2017-01-04] MEDS: CHOLECALCIFEROL 1,000 UNIT TABLET PO SCH (09:18)
[2017-01-04] MEDS: ATORVASTATIN 10 MG TABLET PO SCH (09:19)
[2017-01-04] MEDS: DOCUSATE SODIUM 100 MG CAPSULE PO SCH (09:19)
[2017-01-04] MEDS: APIXABAN 5 MG TABLET PO SCH ×2 (09:19→18:10)
[2017-01-04] MEDS: CLOPIDOGREL 75 MG TABLET PO SCH (09:19)
[2017-01-04] MEDS: LEVOTHYROXINE 88 MCG TABLET PO SCH (09:19)
[2017-01-04] MEDS: ALLOPURINOL 300 MG TABLET PO SCH (09:19)
[2017-01-04] MEDS: PANTOPRAZOLE 40 MG TABLET PO SCH (09:20)
[2017-01-04] MEDS: AMIODARONE 200 MG TABLET PO SCH ×2 (09:20→18:10)
[2017-01-04] MEDS: hydrALAZINE 10 MG TABLET PO SCH (09:25)
[2017-01-04] MEDS: miSOPROStol 200 MCG TABLET PO SCH (10:54)
--- NOTE | 2017-01-04 15:46 | Discharge Summary ---
<Latonya Robert E - Last Filed: 01/04/17 15:44> Hospital Course - Hospital Course Hospital Course: CARDIOLGIST: DR. GREWAL ALLERGIC TO MERCED INHIBITORS Mr. Garcia is a 66 year old male who presented with chest discomfort. During hospitalization, his troponin jumped to a peak of 14.4 and he was taken to the refuse laborer by Dr. Brock for his non-Q-wave NH where he received a drug-eluting stent for a 60% ulcerated proximal LAD stenosis. Post catheterization, he has done well. His blood pressure was a little elevated and we adjusted his medications. His right groin cath site dressing was removed. There has been no bleeding, hematoma, or bruit. Femoral pulses are 3+. Peripheral pulses are present and palpable. Since admission, he has been in atrial fibrillation. He has been off of his anticoagulation previously since he' d had no recurrent episodes of AFib until now. He was started on IV amiodarone and has since converted to a paced sinus rhythm with rates in the 60's. Amiodarone was subsequently changed to PO. His Eliquis was restarted and he's had no bleeding issues. H&H is stable. He had some issues with vomiting but KUB was done and showed no acute abnormality. His WBC was a little elevated but has now returned to normal. He's been afebrile and has no obvious signs of sepsis. Urinalysis did not show UTI. His creatinine has been elevated and nephrology was consulted to see him. This is likely secondary to contrast-induced nephropathy. Mr. Garcia reports he is feeling somewhat better today. He has had no further episodes of vomiting. He continues to have some DANIELS but he also has a severely depressed EF. Physical therapy has been working with him. He has home health which will be continued as an outpatient. He continues to be in an atrial paced rhythm with underlying sinus rhythm. His creatinine has improved and is down to 2.0 the day of discharge. We will avoid MERCED/ARB therapy due to his allergy to MERCED inhibitor. There was some concern regarding the patients swallowing. Speech therapy saw him in consultation. He exhibited no overt s/s of aspiration with any consistency but it is recommended he continue with a soft diet due to poor dentition. We also recommend he continue with a renal diet and avoid high potassium foods. He will need to follow up with Dr. Grewal within 2-3 weeks with CBC, CMP, EKG. He has an appointment on 01/20/17 and 02/28/17. He should keep both of these appointments. 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 (5) Hypertension Status: Chronic (6) Acute systolic CHF (congestive heart failure) Status: Chronic (7) NSVT (nonsustained ventricular tachycardia) Status: Chronic (8) S/P implantation of automatic cardioverter/defibrillator (AICD) Status: Chronic (9) Obstructive sleep apnea Status: Chronic (10) PVD (peripheral vascular disease) Status: Chronic (11) COPD (chronic obstructive pulmonary disease) Status: Chronic (12) Coronary artery disease Status: Chronic (13) Dyspnea Status: Chronic (14) ARF (acute renal failure) Status: Acute Specialty Discharge - Follow Up or Referrals Follow up with: Julia Grewal MD [Physician] - 02/28/17 10:20 am (We made an additional appt for you on 01/20/17 at 08:40am for lab and an ekg and appointment to follow at 09:00am.) Discharge Plan - Discharge Data Disposition: Disch To Home/Self Care Condition at Discharge: Stable Discharge Diet: heart healthy, low salt diet, other (renal diet) Activity: resume usual activities as tolerated Hygiene: no restrictions Weight Bearing at Discharge: full weight bearing Contact your physician if you experience:: fever over 101, Difficulty voiding, Redness or swelling, Nausea/Vomiting, Shortness of breath, Bleeding, pain uncontrolled by pain medications - Discharge Medications New Amiodarone Tab [Cordarone Tab] 200 mg PO BID #60 tablet Carvedilol [Coreg] 6.25 mg PO BID #60 tablet Clopidogrel [Plavix] 75 mg PO DAILY #30 tablet Nitroglycerin Sl Tab [Nitrostat] 0.4 mg SL Q5M PRN #1 bottle PRN Reason: Chest Pain Apixaban [Eliquis] 5 mg PO BID #60 tablet hydrALAZINE TAB [Apresoline Tab] 10 mg PO BID #60 tablet Continue Levothyroxine Tab [Synthroid Tab] 88 mcg PO AC BREAKFAST Aspirin EC Tab 81 mg PO QAM Spironolactone [Aldactone] 25 mg PO DAILY tablet Montelukast Tab [Singulair Tab] 10 mg PO BEDTIME Pantoprazole Sodium 40 mg PO DAILY Budesonide/Formoterol 160-4.5 [Symbicort 160-4.5] 2 puff INH BID Cholecalciferol (Vitamin D3) [Vitamin D3] 1,000 unit PO DAILY Furosemide 20 mg PO BID Ipratropium/Albuterol Inhaler [Combivent Respimat Inhaler] 1 puff INH BID Potassium Chloride 20 meq PO DAILY Allopurinol 300 mg PO DAILY Atorvastatin Calcium 10 mg PO DAILY Discontinued Magnesium Oxide 400 mg PO TID Digoxin Tab [Lanoxin Tab] 0.125 mg PO DAILY Metoprolol Succinate [Metoprolol Succinate] 25 mg PO DAILY - Follow Up or Referral Follow Up: Julia Grewal MD [Physician] - 02/28/17 10:20 am (We made an additional appt for you on 01/20/17 at 08:40am for lab and an ekg and appointment to follow at 09:00am.) - Forms/Instructions Instructions: Left Heart Catheterization (DC), Acute Kidney Injury (DC), Heart Healthy Diet (GEN), Coronary Intravascular Stent Placement (DC), Low Sodium Diet (DC) Exam - Constitutional Vitals: Period Temp Pulse Resp BP Sys/Estrada Pulse Ox Last 24 Hr 96.4 F-97 F 60-72 16-20 119-154/67-77 92-99 Exam: General appearance: Pleasant and cooperative. Overweight, no acute distress. - Head Head exam: Present: normal inspection, normocephalic, atraumatic. Absent: hematoma, laceration - Eye Eye exam: Present: EOMI. Absent: conjunctival injection, nystagmus, periorbital swelling, scleral icterus, laceration to eyelids Pupils: Present: PERRL. Absent: constricted, dilated, fixed, irregular, unequal - ENT ENT exam: Present: normal exam, normal external ear exam - Neck Neck exam: Present: normal inspection. Absent: lymphadenopathy, meningismus, tenderness, thyromegaly - Respiratory Respiratory exam: Present: clear to auscultation bilaterally. Absent: accessory muscle use, chest wall tenderness - Cardiovascular Cardiovascular exam: Present: Regular rate and rhythm. Absent: carotid bruit, gallop, JVD, rubs, murmur - GI/Abdominal GI/Abdominal exam: Present: Hypoactive bowel sounds, mild abdominal distention. Absent: firm, guarding, hernia, mass, tenderness, rebound. - Extremities Exam Extremities exam: Present: normal inspection, normal capillary refill. Upper extremity pulses 2+. Lower extremity pulses 2+. Absent: calf tenderness, edema -Musculoskeletal Exam Musculoskeletal: Present: No Fluid Collection, No Pain, Normal Range of Motion - Back Exam Back exam: Present: normal inspection. Absent: muscle spasm, vertebral tenderness - Neurological Exam Neurological exam: Present: alert, oriented X3, grossly intact without resting or essential tremor - Psychiatric Psychiatric exam: Present: normal affect, normal mood - Skin Skin exam: Present: normal color, warm, dry, intact. Absent: cyanosis, diaphoretic, rash, urticaria -Right groin Right groin exam: No bleeding, hematoma, or bruit. Mild tenderness to palpation. Femoral pulse 3+. Peripheral pulses 2+ bilaterally. Discharge Results Procedures and tests throughout hospitalization: Left heart catheterization 12/29/16: Selective coronary angiography The left main trunk is widely patent bifurcates. The LAD is a large vessel wraps around the apex. There is an ulcerated 60% stenosis in the proximal vessel before the first septal stone operator. The diagonal branch has mild disease. The circumflex consists of 3 large tortuous OM branches which are widely patent. The right coronary has a patent mid vessel stent site and a 40% stenosis beyond the stented segment. Left ventriculography The ventricle is dilated. Severe global hypokinesis. Ejection fraction 15%. Trivial MR is noted. Conclusions #1 increased LVEDP 14 #2 ejection fraction 15% with severe global hypokinesis #3 trivial mitral vegetation #4 no aortic valve gradient #5 left main trunk-patent #6 LAD-ulcerated 60% proximal stenosis before first septal stone operator #7 first diagonal-mild proximal disease #8 circumflex system-3 large tortuous OM branches widely patent #9 dominant RCA-widely patent mid vessel stent site with 40% stenosis beyond the stented segment just before the crux #10 successful proximal LAD stent using a 3.5 x 12 mm [employer] drug-eluting stent. The maximum inflation pressure was 19 and measures for 30 seconds, creating a 3.95 mm lumen. Good result obtained. Labs on day of discharge: Labs from last 24 hours 01/04/17 01/04/17 01/02/17 07:14 07:14 15:05 WBC 11.5 RBC 4.85 Hgb 13.7 L Hct 41.9 L MCV 86.4 L MCH 28 MCHC 32.7 RDW 16.4 Plt Count 218 MPV 11.8 Neut % (Auto) 70.2 Lymph % (Auto) 13.3 L Hawkins % (Auto) 14.7 H Eos % (Auto) 0.4 Baso % (Auto) 0.4 Neut # (Auto) 8.0 H Lymph # (Auto) 1.5 Hawkins # (Auto) 1.7 H Eos # (Auto) 0.1 Baso # (Auto) 0.1 Immature Gran % 1.0 Nucleated RBC % 3.1 Immature Gran # 0.12 Nucleated RBCs # 0.35 Sodium 128 L Potassium 4.0 Chloride 94 L Carbon Dioxide 20 L Anion Gap 18.0 H BUN 56 H Creatinine 2.00 H GFR Calculation 47 BUN/Creatinine Ratio 28.00 H Glucose 121 H Calculated Osmolality 273.1 Calcium 8.7 Magnesium 2.8 H Free T3 pg/mL 2.3 L DS: Provider Date of admission: 12/29/16 03:46 Primary care physician: Shanel Zurita Attending physician on admission: Julia Grewal, Consults: 12/29/16 05:16 Consult to Pastoral Services [CONS] Routine Comment: Pastoral Screen: Request [employer] Visit Pastoral Screen Source of Request: Patient 12/29/16 09:55 Consult to Cardiac Rehabilitation [CONS] Routine Reason for Cardiac Rehabilitation: Risk Factor Modification Appt Out Pt Cardiac Rehab Consult Comment: NSTEMI 12/29/16 12:35 Consult to Cardiac Rehabilitation [CONS] Routine Reason for Cardiac Rehabilitation: Risk Factor Modification 01/02/17 11:43 Consult to Physician [CONS] Routine Comment: Consulting Provider: Mahamed Singleton Consult to Specialist Group: Nephrology When should Consulting Provider be notified: Now Person Notified: JENISE Date Notified: 01/02/17 Time Notified: 12:30 01/03/17 10:34 Consult to Physical Therapy [CONS] Routine Reason for Physical Therapy: Evaluate and Treat Weakness Discharging clinician: OLEGARIO Villaseñor Expected date of discharge: 01/04/17 <Julia Grewal - Last Filed: 01/04/17 22:15> Hospital Course - Hospital Course Hospital Course: I have personally interviewed and evaluated the patient, reviewed the chart and discussed medical decision-making with practitioner Jakob. I have read this note and agree with her documentation here in.
[2017-01-04 17:02] VITALS: BP 124/77
== END 2017-01-04 18:15 | disposition home or self-care (01) | DRG 246 ==
LOC: N.ED 01:55 → N.EDINP 03:46 → N.TELEN 04:17
PROVIDERS: ADMIT Internal Medicine Cardiovascular Disease; ATTEND Internal Medicine Cardiovascular Disease
PROC: CLCCHCL (ICD-10-PCS; 2016-12-29 12:15)

== ENCOUNTER 2017-08-15 10:34 | Observation (INO) ==
[~2017-08-15 10:34] MED LIST: PNEUMOCOCCAL VACCINE (13 VALENT) 0.5 ML SYRINGE IM ONE
[2017-08-15] MEDS ORDERED: NITROGLYCERIN 2% OINT 1 INCH/GM PACK TOP STA (12:28)
[2017-08-15] MEDS ORDERED: ONDANSETRON 4 MG/2 ML VIAL IV PRN ×2 (12:28→15:37)
[2017-08-15] MEDS ORDERED: ASPIRIN 325 MG TABLET PO STA (12:28)
[2017-08-15] MEDS ORDERED: MORPHINE 2 MG/1 ML SYRINGE IV PRN (12:28)
[2017-08-15] MEDS ORDERED: NITROGLYCERIN SL 0.4 MG TABLET SL PRN (12:28)
[2017-08-15] MEDS ORDERED: ENOXAPARIN 100 MG/ML SYRINGE SUBCUT STA (12:28)
[2017-08-15 13:04] LABS: Basophils # 0.1 10*3/uL (0.0-0.2); Basophils % 0.5 % (0.0-0.8); Eosinophils # 0.2 10*3/uL (0.0-0.87); Eosinophils % 1.5 % (0.00-10.9); Hemoglobin 14.7 GM/DL (14.0-18.0); Immature Granulocytes % 0.7 %; Immature Granulocytes Absolute 0.07 #; Lymphocytes # 2.1 10*3/uL (1.4-4.0); Lymphocytes % 20.6 % (21.2-54.2); Mean Corpuscular HGB Conc 32.7 GM/DL (32-36); Mean Corpuscular Hemoglobin 32 PG (27-34); Mean Corpuscular Volume 98.3 FL (87-102); Mean Platelet Volume 11.8 FL (9.6-12.0); Monocytes # 0.9 10*3/uL (0.11-0.8); Monocytes % 8.9 % (1.7-12.7); Neutrophils % 67.8 % (38.7-73.9); Platelet Count 222 T/CUMM (130-400); Red Blood Count 4.58 MC/CUMM (3.8-5.5); White Blood Count 10.3 T/CUMM (4-12)
[2017-08-15 13:15] LABS: INR 0.9; Partial Thromboplastin Time 26.5 SECS (0-40)
[2017-08-15] MEDS ORDERED: ASPIRIN 325 MG TABLET ONE (13:18)
[2017-08-15] MEDS ORDERED: ENOXAPARIN 100 MG/ML SYRINGE SUBCUT ONE (13:18)
[2017-08-15] MEDS ORDERED: NITROGLYCERIN 2% OINT 1 INCH/GM PACK TOP ONE (13:18)
[2017-08-15 13:44] LABS: Albumin 3.9 G/DL (3.4-5.0); Bilirubin,Total 0.6 MG/DL (0.2-1.0); Calcium 9.1 MG/DL (8.5-10.1); Osmolality,Calculated 281.3 MOS/KG (273-304); Potassium 4.2 MMOL/L (3.5-5.1); Total Protein 7.4 G/DL (6.4-8.3)
[2017-08-15] MEDS ORDERED: ACETAMINOPHEN 325 MG TABLET PO PRN (15:37)
[2017-08-15] MEDS ORDERED: guaiFENesin/DM ER 600-30 MG TABLET PO PRN (15:37)
[2017-08-15] MEDS ORDERED: diphenhydrAMINE CAP 25 MG CAPSULE PO PRN (15:37)
[2017-08-15] MEDS ORDERED: POTASSIUM CHLORIDE 20 MEQ TABLET PO PRN (15:37)
[2017-08-15] MEDS ORDERED: MAGNESIUM SULF RIDER 2 GM in PREMIX 1 EACH IV PRN (15:37)
[2017-08-15] MEDS ORDERED: LACTULOSE 20 GM/30 ML UDCUP PO PRN (15:37)
[2017-08-15] MEDS ORDERED: ZALEPLON 5 MG CAPSULE PO PRN (15:37)
[2017-08-15] MEDS ORDERED: MAGNESIUM SULF RIDER 4 GM in PREMIX 1 EACH IV PRN (15:37)
[2017-08-15] MEDS ORDERED: DOCUSATE SODIUM 100 MG CAPSULE PO PRN (15:37)
[2017-08-15] MEDS ORDERED: ENOXAPARIN 40 MG/0.4 ML SYRINGE SUBCUT SCH (16:00)
[2017-08-15] MEDS ORDERED: diphenhydrAMINE CAP 25 MG CAPSULE PO ONE (16:29)
[2017-08-15] MEDS ORDERED: APIXABAN 5 MG TABLET PO SCH (21:00)
[2017-08-15] MEDS ORDERED: MONTELUKAST 10 MG TABLET PO SCH (21:00)
[2017-08-15] MEDS: FUROSEMIDE 20 MG TABLET PO SCH (21:12)
[2017-08-15] MEDS: BUDESONIDE/FORMOTEROL 160-4.5 INHALER 6 GM INH SCH (21:12)
[2017-08-15] MEDS: hydrALAZINE 10 MG TABLET PO SCH (21:12)
[2017-08-15] MEDS: CARVEDILOL 6.25 MG TABLET PO SCH (21:12)
[2017-08-16] MEDS: ALBUTEROL/IPRATROPIUM 3 ML NEB RESP TX SCH ×2 (01:44→08:00)
[2017-08-16 05:56] LABS: Basophils % 0.4 % (0.0-0.8); Eosinophils # 0.1 10*3/uL (0.0-0.87); Hematocrit 43.6 VOL% (42.0-52.0); Immature Granulocytes % 0.5 %; Immature Granulocytes Absolute 0.05 #; Lymphocytes # 1.5 10*3/uL (1.4-4.0); Lymphocytes % 13.9 % (21.2-54.2); Mean Corpuscular HGB Conc 32.1 GM/DL (32-36); Mean Corpuscular Hemoglobin 31 PG (27-34); Mean Corpuscular Volume 96.9 FL (87-102); Mean Platelet Volume 12.2 FL (9.6-12.0); Monocytes # 0.9 10*3/uL (0.11-0.8); Monocytes % 8.5 % (1.7-12.7); NRBC # 0.02 10*3/uL; Neutrophils # 8.3 10*3/uL (1.4-7.4); Neutrophils % 75.7 % (38.7-73.9); Platelet Count 214 T/CUMM (130-400); Red Cell Distribution Width 14.7 % (9.3-17.3); White Blood Count 10.9 T/CUMM (4-12)
[2017-08-16] MEDS ORDERED: SODIUM CHLORIDE 0.9% 1,000 ML IV SCH (06:00)
[2017-08-16 06:29] LABS: Calcium 8.7 MG/DL (8.5-10.1); Magnesium 1.7 MG/DL (1.8-2.4); Osmolality,Calculated 282.3 MOS/KG (273-304); Potassium 4.1 MMOL/L (3.5-5.1); Risk Ratio 3.3
[2017-08-16] MEDS ORDERED: LEVOTHYROXINE 100 MCG TABLET PO SCH (07:30)
[2017-08-16] MEDS ORDERED: ASPIRIN EC 81 MG TABLET PO SCH (09:00)
[2017-08-16] MEDS ORDERED: CLOPIDOGREL 75 MG TABLET PO SCH (09:00)
[2017-08-16] MEDS ORDERED: AMIODARONE 200 MG TABLET PO SCH (09:00)
[2017-08-16] MEDS ORDERED: PANTOPRAZOLE 40 MG TABLET PO SCH (09:00)
[2017-08-16] MEDS ORDERED: ALLOPURINOL 300 MG TABLET PO SCH (09:00)
[2017-08-16] MEDS ORDERED: SPIRONOLACTONE 25 MG TABLET PO SCH (09:00)
[2017-08-16] MEDS ORDERED: ATORVASTATIN 10 MG TABLET PO SCH (09:00)
[2017-08-16] MEDS: BUDESONIDE/FORMOTEROL 160-4.5 INHALER 6 GM INH SCH (10:13)
[2017-08-16] MEDS ORDERED: NITROGLYCERIN SL 0.4 MG TABLET SL PRN (10:32)
[2017-08-16] MEDS ORDERED: metOLazone 2.5 MG TABLET PO PRN (10:32)
[2017-08-16] MEDS ORDERED: DIAZEPAM 5 MG TABLET PO ONE (12:00)
[2017-08-16] MEDS: CARVEDILOL 6.25 MG TABLET PO SCH (13:11)
[2017-08-16] MEDS: hydrALAZINE 10 MG TABLET PO SCH (13:11)
[2017-08-16] MEDS ORDERED: HEPARIN/NACL 0.9% 2 UNITS/ML 1,000 ML IV ONE ×2 (13:19→13:35)
[2017-08-16] MEDS ORDERED: LIDOCAINE 1% 20 ML VIAL ONE (13:19)
[2017-08-16] MEDS: FUROSEMIDE 20 MG TABLET PO SCH (13:21)
[2017-08-16] MEDS ORDERED: MIDAZOLAM 2 MG/2 ML VIAL ONE (13:32)
[2017-08-16] MEDS ORDERED: fentaNYL 100 MCG/2 ML VIAL ONE (13:32)
[2017-08-16 17:36] VITALS: BP 120/70
[2017-08-17] MEDS ORDERED: DOCUSATE SODIUM 100 MG CAPSULE PO SCH (09:00)
[2017-08-17] MEDS ORDERED: MAGNESIUM OXIDE 400 MG TABLET PO SCH (09:00)
[2017-08-17] MEDS ORDERED: sitaGLIPtin 100 MG TABLET PO SCH (09:00)
== END 2017-08-16 18:38 | disposition home or self-care (01) ==
LOC: N.ED 10:34 → N.EDINP 10:34 → N.TELES 19:28 → N.TELEN 19:34
PROVIDERS: ADMIT Internal Medicine Cardiovascular Disease; ATTEND Internal Medicine Cardiovascular Disease
PROC: CLCCHCL (ICD-10-PCS; 2017-08-16 13:45)

== ENCOUNTER 2017-11-30 20:00 | Inpatient (IN) ==
[2017-11-30] MEDS ORDERED: FUROSEMIDE 100 MG/10 ML VIAL IV STA (20:54)
[2017-11-30] MEDS ORDERED: FUROSEMIDE 40 MG/4 ML VIAL ONE (21:20)
[2017-11-30 21:24] LABS: Basophils # 0.1 10*3/uL (0.0-0.2); Basophils % 0.8 % (0.0-0.8); Eosinophils # 0.2 10*3/uL (0.0-0.87); Eosinophils % 1.4 % (0.00-10.9); Hematocrit 41.4 VOL% (42.0-52.0); Hemoglobin 13.1 GM/DL (14.0-18.0); Immature Granulocytes % 0.6 %; Immature Granulocytes Absolute 0.06 #; Lymphocytes # 2.5 10*3/uL (1.4-4.0); Mean Corpuscular HGB Conc 31.6 GM/DL (32-36); Mean Corpuscular Hemoglobin 31 PG (27-34); Mean Corpuscular Volume 97.6 FL (87-102); Mean Platelet Volume 12.4 FL (9.6-12.0); Monocytes # 1.1 10*3/uL (0.11-0.8); Monocytes % 10.4 % (1.7-12.7); NRBC # 0.41 10*3/uL; Neutrophils # 6.5 10*3/uL (1.4-7.4); Neutrophils % 62.8 % (38.7-73.9); Platelet Count 205 T/CUMM (130-400); Red Blood Count 4.24 MC/CUMM (3.8-5.5); Red Cell Distribution Width 16.5 % (9.3-17.3); White Blood Count 10.4 T/CUMM (4-12)
[2017-11-30 21:55] LABS: Albumin 3.9 G/DL (3.4-5.0); Bilirubin,Total 0.4 MG/DL (0.2-1.0); Calcium 8.7 MG/DL (8.5-10.1); Osmolality,Calculated 285.4 MOS/KG (273-304); Potassium 3.9 MMOL/L (3.5-5.1); Total Protein 7.5 G/DL (6.4-8.3)
[2017-12-01] MEDS ORDERED: ONDANSETRON 4 MG/2 ML VIAL IV PRN (00:21)
[2017-12-01] MEDS ORDERED: ACETAMINOPHEN 325 MG TABLET PO PRN (00:21)
[2017-12-01] MEDS ORDERED: DOCUSATE SODIUM 100 MG CAPSULE PO PRN (00:21)
[2017-12-01] MEDS ORDERED: DEXTROSE 50% 25 GM/50 ML VIAL IV PRN (00:21)
[2017-12-01] MEDS ORDERED: GLUCAGON 1 MG VIAL IM PRN (00:21)
[2017-12-01] MEDS ORDERED: NITROGLYCERIN SL 0.4 MG TABLET SL PRN (00:30)
[2017-12-01 02:30] LABS: Troponin I Only 0.066 NG/ML (0.00-0.045)
[2017-12-01 04:58] LABS: Basophils # 0.1 10*3/uL (0.0-0.2); Basophils % 0.8 % (0.0-0.8); Eosinophils # 0.1 10*3/uL (0.0-0.87); Eosinophils % 1.6 % (0.00-10.9); Hematocrit 39.8 VOL% (42.0-52.0); Hemoglobin 12.6 GM/DL (14.0-18.0); Immature Granulocytes % 0.7 %; Immature Granulocytes Absolute 0.06 #; Lymphocytes # 1.9 10*3/uL (1.4-4.0); Lymphocytes % 22.7 % (21.2-54.2); Mean Corpuscular HGB Conc 31.7 GM/DL (32-36); Mean Corpuscular Hemoglobin 31 PG (27-34); Mean Corpuscular Volume 96.4 FL (87-102); Mean Platelet Volume 12.6 FL (9.6-12.0); Monocytes # 0.8 10*3/uL (0.11-0.8); Monocytes % 9.4 % (1.7-12.7); NRBC # 0.19 10*3/uL; Neutrophils # 5.5 10*3/uL (1.4-7.4); Neutrophils % 64.8 % (38.7-73.9); Platelet Count 182 T/CUMM (130-400); Red Blood Count 4.13 MC/CUMM (3.8-5.5); Red Cell Distribution Width 16.5 % (9.3-17.3); White Blood Count 8.6 T/CUMM (4-12)
[2017-12-01 05:52] LABS: Alanine Aminotransferase 134 U/L (16-61); Albumin 3.6 G/DL (3.4-5.0); Alkaline Phosphatase 185 U/L (45-117); Aspartate Amino Transferase 53 U/L (0-37); Blood Urea Nitrogen 30 MG/DL (7-18); Calcium 8.6 MG/DL (8.5-10.1); Glucose 114 MG/DL (74-106); Potassium 3.7 MMOL/L (3.5-5.1); Sodium 143 MMOL/L (136-145); Total Protein 6.5 G/DL (6.4-8.3)
[2017-12-01 06:10] LABS: Troponin I Only 0.062 NG/ML (0.00-0.045)
[2017-12-01] MEDS ORDERED: LEVOTHYROXINE 100 MCG TABLET PO SCH (07:30)
[2017-12-01 09:08] LABS: Apearance,Urine CLEAR (Clear); Bilirubin,Urine Negative (Negative); Blood, Urine Negative (Negative); Glucose,Urine (UA) Negative (Negative); Hyaline Casts,Urine 1 /LPF (0-3); Ketones,Urine Negative (Negative); Nitrite,Urine Negative (Negative); Protein,Urine Negative; RBC,Urine <1 /HPF (0-4); Squamous Epithelial Cell,Urine Occasional /HPF (0-10); Urine Color Yellow (Yellow); Urine Specific Gravity 1.011 (1.001-1.035); Urine Urobilinogen < 2.0 EU/DL (0.2-1.0); WBC,Urine <1 /HPF (0-6)
[2017-12-01] MEDS: INSULIN LISPRO 100 UNIT/ML SUBCUT SCH ×4 (10:25→20:51)
[2017-12-01] MEDS: ENOXAPARIN 40 MG/0.4 ML SYRINGE SUBCUT SCH (10:26)
[2017-12-01] MEDS: NEBIVOLOL 5 MG TABLET PO SCH (10:27)
[2017-12-01] MEDS: sitaGLIPtin 100 MG TABLET PO SCH (10:27)
[2017-12-01] MEDS: ISOSORBIDE MONONITRATE 30 MG TABLET PO SCH (10:27)
[2017-12-01] MEDS: ASPIRIN EC 81 MG TABLET PO SCH (10:27)
[2017-12-01] MEDS: AMIODARONE 200 MG TABLET PO SCH ×2 (10:27→22:10)
[2017-12-01] MEDS: BUDESONIDE/FORMOTEROL 160-4.5 INHALER 6 GM INH SCH ×2 (10:28→22:10)
[2017-12-01] MEDS: hydrALAZINE 25 MG TABLET PO SCH ×3 (10:28→22:10)
[2017-12-01] MEDS: ALLOPURINOL 300 MG TABLET PO SCH (10:28)
[2017-12-01] MEDS: CLOPIDOGREL 75 MG TABLET PO SCH (10:28)
[2017-12-01] MEDS: ATORVASTATIN 10 MG TABLET PO SCH (10:28)
[2017-12-01] MEDS: SPIRONOLACTONE 25 MG TABLET PO SCH (10:28)
[2017-12-01] MEDS: PANTOPRAZOLE 40 MG TABLET PO SCH (10:29)
[2017-12-01] MEDS: FUROSEMIDE 40 MG/4 ML VIAL IV SCH ×2 (10:29→17:06)
[2017-12-01 10:43] LABS: Troponin I Only 0.063 NG/ML (0.00-0.045)
[2017-12-01] MEDS: LEVOTHYROXINE 125 MCG TABLET PO SCH (12:27)
[2017-12-01] MEDS ORDERED: BELLADONNA/OPIUM 30 MG SUPP RECTAL PRN (18:28)
[2017-12-01] MEDS ORDERED: MONTELUKAST 10 MG TABLET PO SCH (21:00)
[2017-12-02 05:09] LABS: Basophils # 0.1 10*3/uL (0.0-0.2); Basophils % 0.8 % (0.0-0.8); Eosinophils # 0.2 10*3/uL (0.0-0.87); Eosinophils % 1.8 % (0.00-10.9); Hematocrit 40.6 VOL% (42.0-52.0); Hemoglobin 12.9 GM/DL (14.0-18.0); Immature Granulocytes % 0.5 %; Immature Granulocytes Absolute 0.04 #; Lymphocytes # 1.7 10*3/uL (1.4-4.0); Lymphocytes % 19.3 % (21.2-54.2); Mean Corpuscular HGB Conc 31.8 GM/DL (32-36); Mean Corpuscular Hemoglobin 31 PG (27-34); Mean Corpuscular Volume 96.4 FL (87-102); Mean Platelet Volume 12.4 FL (9.6-12.0); Monocytes # 0.8 10*3/uL (0.11-0.8); Monocytes % 9.8 % (1.7-12.7); Neutrophils # 5.8 10*3/uL (1.4-7.4); Neutrophils % 67.8 % (38.7-73.9); Platelet Count 171 T/CUMM (130-400); Red Blood Count 4.21 MC/CUMM (3.8-5.5); Red Cell Distribution Width 16.3 % (9.3-17.3); White Blood Count 8.5 T/CUMM (4-12)
[2017-12-02 05:41] LABS: Risk Ratio 4.97; VLDL CHOLESTEROL 57.2 MG/DL
[2017-12-02 05:42] LABS: Osmolality,Calculated 284.5 MOS/KG (273-304); Potassium 3.4 MMOL/L (3.5-5.1)
[2017-12-02] MEDS: LEVOTHYROXINE 125 MCG TABLET PO SCH (06:24)
[2017-12-02] MEDS: INSULIN LISPRO 100 UNIT/ML SUBCUT SCH ×2 (08:13→14:00)
[2017-12-02] MEDS: CLOPIDOGREL 75 MG TABLET PO SCH (09:40)
[2017-12-02] MEDS: ISOSORBIDE MONONITRATE 30 MG TABLET PO SCH (09:40)
[2017-12-02] MEDS: SPIRONOLACTONE 25 MG TABLET PO SCH (09:41)
[2017-12-02] MEDS: NEBIVOLOL 5 MG TABLET PO SCH (09:41)
[2017-12-02] MEDS: sitaGLIPtin 100 MG TABLET PO SCH (09:41)
[2017-12-02] MEDS: ATORVASTATIN 10 MG TABLET PO SCH (09:41)
[2017-12-02] MEDS: ALLOPURINOL 300 MG TABLET PO SCH (09:41)
[2017-12-02] MEDS: ASPIRIN EC 81 MG TABLET PO SCH (09:41)
[2017-12-02] MEDS: AMIODARONE 200 MG TABLET PO SCH (09:41)
[2017-12-02] MEDS: PANTOPRAZOLE 40 MG TABLET PO SCH (09:41)
[2017-12-02] MEDS: hydrALAZINE 25 MG TABLET PO SCH (09:41)
[2017-12-02] MEDS: BUDESONIDE/FORMOTEROL 160-4.5 INHALER 6 GM INH SCH (09:44)
[2017-12-02] MEDS: ENOXAPARIN 40 MG/0.4 ML SYRINGE SUBCUT SCH (09:45)
[2017-12-02] MEDS: FUROSEMIDE 40 MG/4 ML VIAL IV SCH (09:46)
[2017-12-02 12:13] VITALS: BP 123/73
== END 2017-12-02 13:38 | disposition home or self-care (01) | DRG 291 ==
LOC: N.ED 20:00 → N.EDINP 23:22 → SUATTDRO 23:22 → N.TELES 12-01 00:10
PROVIDERS: ADMIT Family Medicine; ATTEND Hospitalist

== ENCOUNTER 2018-06-05 21:14 | Observation (INO) ==
[2018-06-05] MEDS ORDERED: DEXTROSE 50% 25 GM/50 ML VIAL IV PRN ×2 (23:36)
[2018-06-05] MEDS ORDERED: ACETAMINOPHEN 325 MG TABLET PO PRN (23:36)
[2018-06-05] MEDS ORDERED: ONDANSETRON 4 MG/2 ML VIAL IV PRN (23:36)
[2018-06-05] MEDS ORDERED: GLUCAGON 1 MG VIAL IM PRN ×2 (23:36)
[2018-06-06 01:11] LABS: Albumin 3.3 G/DL (3.4-5.0); Bilirubin,Total 0.4 MG/DL (0.2-1.0); Osmolality,Calculated 284.7 MOS/KG (273-304); Potassium 2.7 MMOL/L (3.5-5.1); Total Protein 6.3 G/DL (6.4-8.3)
[2018-06-06] MEDS: POTASSIUM CHLORIDE 20 MEQ TABLET PO SCH ×2 (02:46→05:40)
[2018-06-06 04:55] LABS: Basophils # 0.1 10*3/uL (0.0-0.2); Basophils % 0.7 % (0.0-0.8); Eosinophils # 0.1 10*3/uL (0.0-0.87); Eosinophils % 1.9 % (0.00-10.9); Hematocrit 44.7 VOL% (42.0-52.0); Hemoglobin 14.8 GM/DL (14.0-18.0); Immature Granulocytes % 0.4 %; Immature Granulocytes Absolute 0.03 #; Lymphocytes # 2.4 10*3/uL (1.4-4.0); Lymphocytes % 34.5 % (21.2-54.2); Mean Corpuscular HGB Conc 33.1 GM/DL (32-36); Mean Corpuscular Hemoglobin 31 PG (27-34); Mean Platelet Volume 12.5 FL (9.6-12.0); Monocytes # 0.8 10*3/uL (0.11-0.8); Monocytes % 11.3 % (1.7-12.7); Neutrophils # 3.5 10*3/uL (1.4-7.4); Neutrophils % 51.2 % (38.7-73.9); Platelet Count 217 T/CUMM (130-400); Red Blood Count 4.86 MC/CUMM (3.8-5.5); Red Cell Distribution Width 13.4 % (9.3-17.3); White Blood Count 6.8 T/CUMM (4-12)
[2018-06-06 05:21] LABS: Albumin 3.1 G/DL (3.4-5.0); Bilirubin,Total 0.8 MG/DL (0.2-1.0); Osmolality,Calculated 282.8 MOS/KG (273-304); Potassium 2.9 MMOL/L (3.5-5.1)
[2018-06-06] MEDS: INSULIN LISPRO 100 UNIT/ML SUBCUT SCH ×2 (08:18→11:40)
[2018-06-06] MEDS: INSULIN REGULAR 100 UNIT/ML SUBCUT SCH ×2 (08:19→11:41)
[2018-06-06] MEDS: POTASSIUM CHLORIDE 20 MEQ TABLET PO PRN ×4 (08:33→14:32)
[2018-06-06] MEDS ORDERED: INFLUENZA VIRUS VACCINE 0.5 ML SYRINGE IM ONE (09:00)
[2018-06-06] MEDS ORDERED: PANTOPRAZOLE 40 MG TABLET PO SCH ×2 (09:00→11:00)
[2018-06-06] MEDS ORDERED: NITROGLYCERIN SL 0.4 MG TABLET SL PRN (10:40)
[2018-06-06] MEDS ORDERED: metOLazone 2.5 MG TABLET PO PRN (10:40)
[2018-06-06] MEDS ORDERED: ASPIRIN EC 81 MG TABLET PO SCH (11:00)
[2018-06-06] MEDS ORDERED: ISOSORBIDE MONONITRATE 30 MG TABLET PO SCH (11:00)
[2018-06-06] MEDS ORDERED: NEBIVOLOL 5 MG TABLET PO SCH (11:00)
[2018-06-06] MEDS ORDERED: sitaGLIPtin 100 MG TABLET PO SCH (11:00)
[2018-06-06] MEDS ORDERED: BUDESONIDE/FORMOTEROL 160-4.5 INHALER 6 GM INH SCH (11:00)
[2018-06-06] MEDS ORDERED: ATORVASTATIN 10 MG TABLET PO SCH (11:00)
[2018-06-06] MEDS ORDERED: SPIRONOLACTONE 25 MG TABLET PO SCH (11:00)
[2018-06-06] MEDS ORDERED: AMIODARONE 200 MG TABLET PO SCH (11:00)
[2018-06-06] MEDS ORDERED: ALLOPURINOL 300 MG TABLET PO SCH (11:00)
[2018-06-06] MEDS: CLOPIDOGREL 75 MG TABLET PO SCH ×2 (11:16→11:22)
[2018-06-06 11:39] VITALS: BP 132/87
[2018-06-06] MEDS ORDERED: hydrALAZINE 25 MG TABLET PO SCH (15:00)
[2018-06-06] MEDS ORDERED: FUROSEMIDE 40 MG TABLET PO SCH (16:00)
[2018-06-06] MEDS ORDERED: MONTELUKAST 10 MG TABLET PO SCH (21:00)
[2018-06-06] MEDS ORDERED: INSULIN GLARGINE 100 UNIT/ML SUBCUT SCH (21:00)
[2018-06-07] MEDS ORDERED: LEVOTHYROXINE 112 MCG TABLET PO SCH (07:00)
== END 2018-06-06 15:58 | disposition home or self-care (01) ==
LOC: N.2E → SUATTDRO 22:50
PROVIDERS: ADMIT Internal Medicine; ATTEND Internal Medicine

== ENCOUNTER 2019-05-16 19:16 | Inpatient (IN) ==
[2019-05-16 20:03] LABS: Basophils # 0.1 10*3/uL (0.0-0.2); Basophils % 0.5 % (0.0-0.8); Eosinophils # 0.1 10*3/uL (0.0-0.87); Eosinophils % 0.7 % (0.00-10.9); Hematocrit 41.3 VOL% (42.0-52.0); Hemoglobin 12.8 GM/DL (14.0-18.0); Immature Granulocytes % 0.9 %; Immature Granulocytes Absolute 0.11 #; Lymphocytes # 1.5 10*3/uL (1.4-4.0); Lymphocytes % 12.4 % (21.2-54.2); Mean Corpuscular Volume 93.4 FL (87-102); Mean Platelet Volume 11.4 FL (9.6-12.0); Monocytes % 12.3 % (1.7-12.7); NRBC # 0.08 10*3/uL; Neutrophils % 73.2 % (38.7-73.9); Platelet Count 325 T/CUMM (130-400); Red Blood Count 4.42 MC/CUMM (3.8-5.5); Red Cell Distribution Width 15.5 % (9.3-17.3); White Blood Count 11.8 T/CUMM (4-12)
[2019-05-16 20:31] LABS: Albumin 3.2 G/DL (3.4-5.0); Bilirubin,Total 0.9 MG/DL (0.2-1.0); Calcium 8.6 MG/DL (8.5-10.1); Osmolality,Calculated 278.1 MOS/KG (273-304)
[2019-05-16] MEDS ORDERED: FUROSEMIDE 40 MG/4 ML VIAL IV STA (20:37)
[2019-05-16] MEDS ORDERED: SODIUM CHLORIDE 0.9% 500 ML IV STA (20:37)
[2019-05-16] MEDS ORDERED: ALBUTEROL/IPRATROPIUM 3 ML NEB RESP TX STA (20:37)
[2019-05-16] MEDS ORDERED: methylPREDNISolone SOD SUC 125 MG/2 ML VIAL IV STA (20:37)
[2019-05-16] MEDS ORDERED: cefTRIAXone 1,000 MG in SODIUM CHLORIDE 0.9% 100 ML IV STA (21:02)
[2019-05-16] MEDS ORDERED: ONDANSETRON 4 MG/2 ML VIAL IV PRN (22:15)
[2019-05-16] MEDS ORDERED: guaiFENesin/DM ER 600-30 MG TABLET PO PRN (22:15)
[2019-05-16] MEDS ORDERED: ACETAMINOPHEN 325 MG TABLET PO PRN (22:15)
[2019-05-16] MEDS ORDERED: BISACODYL 5 MG TABLET PO PRN (22:15)
[2019-05-16] MEDS ORDERED: diphenhydrAMINE CAP 25 MG CAPSULE PO PRN (22:15)
[2019-05-16] MEDS ORDERED: DEXTROSE 50% 25 GM/50 ML VIAL IV PRN (22:24)
[2019-05-16] MEDS ORDERED: GLUCAGON 1 MG VIAL IM PRN (22:24)
[2019-05-16 22:34] LABS: Apearance,Urine CLEAR (Clear); Bilirubin,Urine Negative (Negative); Blood, Urine Negative (Negative); Glucose,Urine (UA) Negative (Negative); Hyaline Casts,Urine 16 /LPF (0-3); Ketones,Urine Negative (Negative); Mucus,Urine Occasional /LPF (Occasional); Nitrite,Urine Negative (Negative); Protein,Urine Negative; RBC,Urine <1 /HPF (0-4); Squamous Epithelial Cell,Urine Occasional /HPF (0-10); Urine Color Yellow (Yellow); Urine Specific Gravity 1.011 (1.001-1.035); WBC,Urine <1 /HPF (0-6)
[2019-05-16 22:48] LABS: HDL Cholesterol 23 MG/DL (40-60); Risk Ratio 2.83; Thyroid Stimulating Hormone < 0.005 uIU/ml (0.358-3.74); Triglycerides 86 MG/DL (2-150); VLDL CHOLESTEROL 17.2 MG/DL
[2019-05-17] MEDS ORDERED: INFLUENZA VIRUS VACCINE 0.5 ML SYRINGE IM ONE (01:44)
[2019-05-17] MEDS ORDERED: PNEUMOCOCCAL VACCINE (13 VALENT) 0.5 ML SYRINGE IM ONE (01:44)
[2019-05-17] MEDS: ALBUTEROL/IPRATROPIUM 3 ML NEB RESP TX SCH ×4 (02:17→20:01)
[2019-05-17 02:42] LABS: ABG HCO3 19.1 MMOL/L (20-26); ABG Oxygen Saturation 96.5 % (95-100); ABG PCO2 29.5 MM HG (35-48); ABG PH 7.428 (7.35-7.45); ABG PO2 91.3 MM HG (80-95); Allen Test Positive
[2019-05-17 04:07] LABS: Albumin 3.3 G/DL (3.4-5.0); Bilirubin,Total 1.6 MG/DL (0.2-1.0); Calcium 9.3 MG/DL (8.5-10.1); Osmolality,Calculated 286.8 MOS/KG (273-304); Total Protein 6.4 G/DL (6.4-8.3)
[2019-05-17] MEDS ORDERED: AMIODARONE 200 MG TABLET PO SCH (09:00)
[2019-05-17] MEDS ORDERED: ASPIRIN EC 81 MG TABLET PO SCH (09:00)
[2019-05-17] MEDS: CLOPIDOGREL 75 MG TABLET PO SCH (10:10)
[2019-05-17] MEDS: DIGOXIN 0.25 MG TABLET PO SCH ×2 (10:10→12:59)
[2019-05-17] MEDS: carvediloL 6.25 MG TABLET PO SCH ×2 (10:10→20:47)
[2019-05-17] MEDS: INSULIN REGULAR 100 UNIT/ML SUBCUT SCH ×4 (10:11→20:47)
[2019-05-17] MEDS: ISOSORBIDE MONONITRATE 30 MG TABLET PO SCH (10:11)
[2019-05-17] MEDS: hydrALAZINE 25 MG TABLET PO SCH ×3 (10:11→20:47)
[2019-05-17] MEDS: FUROSEMIDE 40 MG/4 ML VIAL IV SCH ×2 (10:12→15:40)
[2019-05-17] MEDS: methylPREDNISolone SOD SUC 40 MG/1 ML VIAL IV SCH (15:38)
[2019-05-17] MEDS ORDERED: SODIUM CHLORIDE 0.9% 500 ML IV ONE (15:46)
[2019-05-17] MEDS: RIVAROXABAN 20 MG TABLET PO SCH (17:53)
[2019-05-17] MEDS: MORPHINE 4 MG/1 ML VIAL IV PRN (19:37)
[2019-05-17] MEDS: ATORVASTATIN 10 MG TABLET PO SCH (20:47)
[2019-05-18] MEDS: methylPREDNISolone SOD SUC 40 MG/1 ML VIAL IV SCH ×4 (00:02→23:11)
[2019-05-18] MEDS: MORPHINE 4 MG/1 ML VIAL IV PRN ×3 (00:03→23:11)
[2019-05-18] MEDS: ALBUTEROL/IPRATROPIUM 3 ML NEB RESP TX SCH ×4 (02:29→19:10)
[2019-05-18 05:27] LABS: Basophils % 0.1 % (0.0-0.8); Hemoglobin 12.5 GM/DL (14.0-18.0); Immature Granulocytes Absolute 0.11 #; Lymphocytes # 0.6 10*3/uL (1.4-4.0); Lymphocytes % 5.4 % (21.2-54.2); Mean Corpuscular HGB Conc 31.3 GM/DL (32-36); Mean Corpuscular Volume 92.2 FL (87-102); Mean Platelet Volume 11.5 FL (9.6-12.0); NRBC # 0.13 10*3/uL; Neutrophils % 88.5 % (38.7-73.9); Platelet Count 299 T/CUMM (130-400); Red Blood Count 4.34 MC/CUMM (3.8-5.5); Red Cell Distribution Width 15.2 % (9.3-17.3); White Blood Count 10.7 T/CUMM (4-12)
[2019-05-18 05:54] LABS: Calcium 9.6 MG/DL (8.5-10.1); Osmolality,Calculated 292.5 MOS/KG (273-304)
[2019-05-18] MEDS: ISOSORBIDE MONONITRATE 30 MG TABLET PO SCH (09:36)
[2019-05-18] MEDS: CLOPIDOGREL 75 MG TABLET PO SCH (09:37)
[2019-05-18] MEDS: carvediloL 6.25 MG TABLET PO SCH ×2 (09:37→20:24)
[2019-05-18] MEDS: hydrALAZINE 25 MG TABLET PO SCH ×3 (09:38→20:24)
[2019-05-18] MEDS: FUROSEMIDE 40 MG/4 ML VIAL IV SCH ×2 (09:39→16:39)
[2019-05-18] MEDS: INSULIN REGULAR 100 UNIT/ML SUBCUT SCH ×4 (09:39→20:24)
[2019-05-18] MEDS: DIGOXIN 0.125 MG TABLET PO SCH (13:31)
[2019-05-18] MEDS: RIVAROXABAN 20 MG TABLET PO SCH (16:39)
[2019-05-18] MEDS: ATORVASTATIN 10 MG TABLET PO SCH (20:24)
[2019-05-19] MEDS: ALBUTEROL/IPRATROPIUM 3 ML NEB RESP TX SCH ×4 (01:42→18:54)
[2019-05-19 04:56] LABS: Basophils % 0.2 % (0.0-0.8); Hematocrit 43.7 VOL% (42.0-52.0); Hemoglobin 13.5 GM/DL (14.0-18.0); Immature Granulocytes % 0.8 %; Immature Granulocytes Absolute 0.09 #; Lymphocytes # 0.5 10*3/uL (1.4-4.0); Mean Corpuscular HGB Conc 30.9 GM/DL (32-36); Mean Corpuscular Volume 93.6 FL (87-102); Monocytes % 2.9 % (1.7-12.7); NRBC # 0.18 10*3/uL; Neutrophils % 92.1 % (38.7-73.9); Platelet Count 311 T/CUMM (130-400); Red Blood Count 4.67 MC/CUMM (3.8-5.5); Red Cell Distribution Width 15.5 % (9.3-17.3); White Blood Count 11.9 T/CUMM (4-12)
[2019-05-19 05:11] LABS: Calcium 9.7 MG/DL (8.5-10.1); Osmolality,Calculated 291.5 MOS/KG (273-304)
[2019-05-19 05:18] LABS: Hypochromasia 1+; Lymphocytes 4 % (20-55); Nucleated Red Blood Cells 1 (0-5); Platelet Estimate Adequate; Segmented Neutrophils 93 % (50-85); Total Cells Counted 100
[2019-05-19] MEDS: methylPREDNISolone SOD SUC 40 MG/1 ML VIAL IV SCH ×2 (06:16→15:28)
[2019-05-19] MEDS: carvediloL 12.5 MG TABLET PO SCH ×2 (09:28→20:39)
[2019-05-19] MEDS: INSULIN REGULAR 100 UNIT/ML SUBCUT SCH ×4 (09:28→20:37)
[2019-05-19] MEDS: CLOPIDOGREL 75 MG TABLET PO SCH (09:29)
[2019-05-19] MEDS: ISOSORBIDE MONONITRATE 30 MG TABLET PO SCH (09:29)
[2019-05-19] MEDS: FUROSEMIDE 40 MG TABLET PO SCH ×2 (09:29→15:28)
[2019-05-19] MEDS: hydrALAZINE 25 MG TABLET PO SCH ×3 (09:29→20:39)
[2019-05-19] MEDS: FUROSEMIDE 40 MG/4 ML VIAL IV SCH (10:57)
[2019-05-19] MEDS: DIGOXIN 0.125 MG TABLET PO SCH (15:27)
[2019-05-19] MEDS ORDERED: FUROSEMIDE 40 MG TABLET PO SCH (16:00)
[2019-05-19] MEDS: RIVAROXABAN 20 MG TABLET PO SCH (17:00)
[2019-05-19] MEDS: MORPHINE 4 MG/1 ML VIAL IV PRN (20:38)
[2019-05-19] MEDS: ATORVASTATIN 10 MG TABLET PO SCH (20:39)
[2019-05-19] MEDS ORDERED: MONTELUKAST 10 MG TABLET PO SCH (21:00)
[2019-05-19] MEDS ORDERED: INSULIN GLARGINE 100 UNIT/ML SUBCUT SCH (21:00)
[2019-05-20] MEDS: MORPHINE 4 MG/1 ML VIAL IV PRN (00:03)
[2019-05-20] MEDS: ALBUTEROL/IPRATROPIUM 3 ML NEB RESP TX SCH ×3 (01:04→13:08)
[2019-05-20 05:32] LABS: Basophils % 0.2 % (0.0-0.8); Hematocrit 43.5 VOL% (42.0-52.0); Hemoglobin 13.5 GM/DL (14.0-18.0); Immature Granulocytes % 0.9 %; Lymphocytes # 0.5 10*3/uL (1.4-4.0); Lymphocytes % 4.5 % (21.2-54.2); Mean Corpuscular Volume 93.5 FL (87-102); Mean Platelet Volume 11.7 FL (9.6-12.0); Monocytes % 5.5 % (1.7-12.7); NRBC # 0.25 10*3/uL; Neutrophils % 88.9 % (38.7-73.9); Platelet Count 324 T/CUMM (130-400); Red Blood Count 4.65 MC/CUMM (3.8-5.5); Red Cell Distribution Width 15.6 % (9.3-17.3); White Blood Count 11.1 T/CUMM (4-12)
[2019-05-20 06:13] LABS: Calcium 9.4 MG/DL (8.5-10.1); Osmolality,Calculated 292.3 MOS/KG (273-304)
[2019-05-20 06:26] LABS: Lymphocytes 5 % (20-55); Nucleated Red Blood Cells 2 (0-5); Segmented Neutrophils 89 % (50-85); Total Cells Counted 100
[2019-05-20 06:27] LABS: Anisocytosis 1+; Platelet Estimate Adequate; Target Cells Few
[2019-05-20] MEDS ORDERED: LEVOTHYROXINE 112 MCG TABLET PO SCH (06:30)
[2019-05-20] MEDS ORDERED: RIVAROXABAN 20 MG TABLET PO SCH (09:00)
[2019-05-20] MEDS ORDERED: FLUTICASONE 50 MCG NASAL SPRAY 16 GM BOTTLE BOTH NARES SCH (09:00)
[2019-05-20] MEDS ORDERED: POTASSIUM CHLORIDE 10 MEQ TABLET PO SCH (09:00)
[2019-05-20] MEDS ORDERED: PANTOPRAZOLE 40 MG TABLET PO SCH (09:00)
[2019-05-20] MEDS ORDERED: ALLOPURINOL 300 MG TABLET PO SCH (09:00)
[2019-05-20] MEDS: INSULIN REGULAR 100 UNIT/ML SUBCUT SCH ×3 (09:25→16:26)
[2019-05-20] MEDS: CLOPIDOGREL 75 MG TABLET PO SCH (09:44)
[2019-05-20] MEDS: ISOSORBIDE MONONITRATE 30 MG TABLET PO SCH (09:45)
[2019-05-20] MEDS: carvediloL 12.5 MG TABLET PO SCH (09:47)
[2019-05-20] MEDS: FUROSEMIDE 40 MG TABLET PO SCH ×2 (09:47→15:04)
[2019-05-20] MEDS: hydrALAZINE 25 MG TABLET PO SCH ×2 (09:48→15:04)
[2019-05-20 12:05] VITALS: BP 159/73
[2019-05-20] MEDS: DIGOXIN 0.125 MG TABLET PO SCH (15:04)
== END 2019-05-20 16:31 | disposition home health service (06) | DRG 291 ==
LOC: N.ED 19:16 → SUATTDRO 22:15 → N.EDINP 22:15 → N.TELES 22:42
PROVIDERS: ADMIT Internal Medicine Geriatric Medicine; ATTEND Internal Medicine

== ENCOUNTER 2019-05-26 13:37 | Observation (INO) ==
[2019-05-26] MEDS ORDERED: ALBUTEROL/IPRATROPIUM 3 ML NEB RESP TX STA (13:57)
[2019-05-26] MEDS ORDERED: FUROSEMIDE 40 MG/4 ML VIAL IV STA (13:57)
[2019-05-26 14:18] LABS: Basophils % 0.2 % (0.0-0.8); Eosinophils # 0.3 10*3/uL (0.0-0.87); Eosinophils % 2.6 % (0.00-10.9); Hematocrit 46.3 VOL% (42.0-52.0); Hemoglobin 14.4 GM/DL (14.0-18.0); Immature Granulocytes % 0.8 %; Immature Granulocytes Absolute 0.08 #; Lymphocytes # 1.9 10*3/uL (1.4-4.0); Lymphocytes % 18.3 % (21.2-54.2); Mean Corpuscular HGB Conc 31.1 GM/DL (32-36); Mean Corpuscular Volume 92.6 FL (87-102); Mean Platelet Volume 10.7 FL (9.6-12.0); Monocytes % 10.3 % (1.7-12.7); NRBC # 0.05 10*3/uL; Neutrophils % 67.8 % (38.7-73.9); Platelet Count 379 T/CUMM (130-400); Red Cell Distribution Width 16.6 % (9.3-17.3); White Blood Count 10.3 T/CUMM (4-12)
[2019-05-26 14:31] LABS: Partial Thromboplastin Time 40.3 SECS (20.8-36.0)
[2019-05-26 14:33] LABS: PT Patient Result 21.9 SECS (9.6-12.2)
[2019-05-26 14:57] LABS: Alanine Aminotransferase 79 U/L (16-61); Albumin 3.4 G/DL (3.4-5.0); Alkaline Phosphatase 316 U/L (45-117); Aspartate Amino Transferase 31 U/L (0-37); Blood Urea Nitrogen 39 MG/DL (7-18); Calcium 8.1 MG/DL (8.5-10.1); Estimated Glom Filtration Rate 47 ML/MIN; Glucose 146 MG/DL (74-106); Osmolality,Calculated 286.7 MOS/KG (273-304); Total Protein 6.5 G/DL (6.4-8.3)
[2019-05-26 14:59] LABS: Troponin I 0.073 NG/ML (0.00-0.045)
[2019-05-26 15:37] LABS: Apearance,Urine CLEAR (Clear); Bilirubin,Urine Negative (Negative); Blood, Urine Small mg/dL (Negative); Glucose,Urine (UA) Negative (Negative); Hyaline Casts,Urine 36 /LPF (0-3); Ketones,Urine Negative (Negative); Mucus,Urine Occasional /LPF (Occasional); Nitrite,Urine Negative (Negative); Protein,Urine Negative; RBC,Urine 2 /HPF (0-4); Squamous Epithelial Cell,Urine Occasional /HPF (0-10); Urine Color Yellow (Yellow); Urine Specific Gravity 1.009 (1.001-1.035); WBC,Urine <1 /HPF (0-6)
[2019-05-26] MEDS ORDERED: DEXTROSE 10% 25 GM/250 ML BAG IV PRN (16:03)
[2019-05-26] MEDS ORDERED: ONDANSETRON 4 MG/2 ML VIAL IV PRN (16:03)
[2019-05-26] MEDS ORDERED: ACETAMINOPHEN 325 MG TABLET PO PRN (16:03)
[2019-05-26] MEDS ORDERED: GLUCAGON 1 MG VIAL IM PRN (16:03)
[2019-05-26] MEDS ORDERED: NITROGLYCERIN SL 0.4 MG TABLET SL PRN (16:17)
[2019-05-26] MEDS: INSULIN LISPRO 100 UNIT/ML SUBCUT SCH ×2 (16:34→21:22)
[2019-05-26] MEDS ORDERED: INFLUENZA VIRUS VACCINE 0.5 ML SYRINGE IM ONE (17:21)
[2019-05-26] MEDS ORDERED: PNEUMOCOCCAL VACCINE (13 VALENT) 0.5 ML SYRINGE IM ONE (17:23)
[2019-05-26] MEDS: ALBUTEROL/IPRATROPIUM 3 ML NEB RESP TX SCH (19:37)
[2019-05-26] MEDS: carvediloL 12.5 MG TABLET PO SCH (21:36)
[2019-05-26] MEDS: hydrALAZINE 25 MG TABLET PO SCH (21:36)
[2019-05-26] MEDS: DOCUSATE SODIUM 100 MG CAPSULE PO SCH (21:36)
[2019-05-26] MEDS: FUROSEMIDE 40 MG/4 ML VIAL IV SCH (21:37)
[2019-05-26] MEDS: MONTELUKAST 10 MG TABLET PO SCH (21:39)
[2019-05-27] MEDS: ALBUTEROL/IPRATROPIUM 3 ML NEB RESP TX SCH ×4 (00:47→19:14)
[2019-05-27 05:00] LABS: Basophils % 0.1 % (0.0-0.8); Eosinophils # 0.2 10*3/uL (0.0-0.87); Eosinophils % 2.4 % (0.00-10.9); Hematocrit 45.2 VOL% (42.0-52.0); Hemoglobin 13.8 GM/DL (14.0-18.0); Immature Granulocytes % 0.8 %; Immature Granulocytes Absolute 0.08 #; Lymphocytes # 1.8 10*3/uL (1.4-4.0); Mean Corpuscular HGB Conc 30.5 GM/DL (32-36); Mean Corpuscular Volume 94.2 FL (87-102); Monocytes % 10.6 % (1.7-12.7); NRBC # 0.02 10*3/uL; Neutrophils % 68.1 % (38.7-73.9); Platelet Count 310 T/CUMM (130-400); Red Cell Distribution Width 16.7 % (9.3-17.3); White Blood Count 9.9 T/CUMM (4-12)
[2019-05-27 05:26] LABS: Albumin 3.3 G/DL (3.4-5.0); Bilirubin,Total 0.9 MG/DL (0.2-1.0); Calcium 8.7 MG/DL (8.5-10.1); Osmolality,Calculated 287.5 MOS/KG (273-304); Total Protein 6.2 G/DL (6.4-8.3)
[2019-05-27] MEDS: LEVOTHYROXINE 125 MCG TABLET PO SCH (06:09)
[2019-05-27] MEDS: INSULIN LISPRO 100 UNIT/ML SUBCUT SCH ×4 (07:28→20:39)
[2019-05-27] MEDS: FUROSEMIDE 40 MG/4 ML VIAL IV SCH ×2 (09:07→21:23)
[2019-05-27] MEDS: CLOPIDOGREL 75 MG TABLET PO SCH (09:08)
[2019-05-27] MEDS: DOCUSATE SODIUM 100 MG CAPSULE PO SCH ×2 (09:08→20:38)
[2019-05-27] MEDS: POTASSIUM CHLORIDE 10 MEQ TABLET PO SCH (09:08)
[2019-05-27] MEDS: RIVAROXABAN 20 MG TABLET PO SCH (09:08)
[2019-05-27] MEDS: ISOSORBIDE MONONITRATE 30 MG TABLET PO SCH (09:08)
[2019-05-27] MEDS: ALLOPURINOL 300 MG TABLET PO SCH (09:08)
[2019-05-27] MEDS: SPIRONOLACTONE 25 MG TABLET PO SCH (09:09)
[2019-05-27] MEDS: FLUTICASONE 50 MCG NASAL SPRAY 16 GM BOTTLE BOTH NARES SCH (09:09)
[2019-05-27] MEDS: ATORVASTATIN 10 MG TABLET PO SCH (09:09)
[2019-05-27] MEDS: hydrALAZINE 25 MG TABLET PO SCH ×3 (09:09→20:38)
[2019-05-27] MEDS: PANTOPRAZOLE 40 MG TABLET PO SCH (09:09)
[2019-05-27] MEDS: carvediloL 12.5 MG TABLET PO SCH ×2 (09:09→20:38)
[2019-05-27] MEDS: DIGOXIN 0.125 MG TABLET PO SCH (12:30)
[2019-05-27] MEDS ORDERED: INSULIN GLARGINE 40 UNIT SUBCUT SCH (16:00)
[2019-05-27] MEDS ORDERED: INSULIN GLARGINE 100 UNIT/ML SUBCUT SCH (16:00)
[2019-05-27] MEDS: MONTELUKAST 10 MG TABLET PO SCH (20:38)
[2019-05-28] MEDS: ALBUTEROL/IPRATROPIUM 3 ML NEB RESP TX SCH ×3 (00:17→12:06)
[2019-05-28 05:49] LABS: Basophils % 0.1 % (0.0-0.8); Eosinophils # 0.2 10*3/uL (0.0-0.87); Eosinophils % 2.6 % (0.00-10.9); Hematocrit 43.2 VOL% (42.0-52.0); Hemoglobin 13.4 GM/DL (14.0-18.0); Immature Granulocytes % 0.8 %; Immature Granulocytes Absolute 0.07 #; Lymphocytes # 1.4 10*3/uL (1.4-4.0); Lymphocytes % 16.6 % (21.2-54.2); Mean Corpuscular Volume 93.7 FL (87-102); Monocytes % 10.3 % (1.7-12.7); Neutrophils % 69.6 % (38.7-73.9); Platelet Count 273 T/CUMM (130-400); Red Blood Count 4.61 MC/CUMM (3.8-5.5); Red Cell Distribution Width 16.8 % (9.3-17.3); White Blood Count 8.6 T/CUMM (4-12)
[2019-05-28 06:16] LABS: Calcium 8.4 MG/DL (8.5-10.1); Osmolality,Calculated 282.7 MOS/KG (273-304)
[2019-05-28] MEDS: LEVOTHYROXINE 125 MCG TABLET PO SCH (06:25)
[2019-05-28] MEDS: INSULIN LISPRO 100 UNIT/ML SUBCUT SCH ×2 (08:06→12:18)
[2019-05-28] MEDS: FUROSEMIDE 40 MG/4 ML VIAL IV SCH (09:30)
[2019-05-28] MEDS: SPIRONOLACTONE 25 MG TABLET PO SCH (09:31)
[2019-05-28] MEDS: hydrALAZINE 25 MG TABLET PO SCH (09:31)
[2019-05-28] MEDS: PANTOPRAZOLE 40 MG TABLET PO SCH (09:31)
[2019-05-28] MEDS: ALLOPURINOL 300 MG TABLET PO SCH (09:31)
[2019-05-28] MEDS: CLOPIDOGREL 75 MG TABLET PO SCH (09:31)
[2019-05-28] MEDS: ATORVASTATIN 10 MG TABLET PO SCH (09:31)
[2019-05-28] MEDS: RIVAROXABAN 20 MG TABLET PO SCH (09:31)
[2019-05-28] MEDS: DOCUSATE SODIUM 100 MG CAPSULE PO SCH (09:31)
[2019-05-28] MEDS: POTASSIUM CHLORIDE 10 MEQ TABLET PO SCH (09:31)
[2019-05-28] MEDS: ISOSORBIDE MONONITRATE 30 MG TABLET PO SCH (09:32)
[2019-05-28] MEDS: carvediloL 12.5 MG TABLET PO SCH (09:32)
[2019-05-28] MEDS: FLUTICASONE 50 MCG NASAL SPRAY 16 GM BOTTLE BOTH NARES SCH (09:32)
[2019-05-28 12:21] VITALS: BP 124/77
[2019-05-28] MEDS: DIGOXIN 0.125 MG TABLET PO SCH (12:57)
== END 2019-05-28 15:00 | disposition home or self-care (01) ==
LOC: N.ED 13:37 → N.EDINP 13:37 → N.TELES 17:10
PROVIDERS: ADMIT Internal Medicine; ATTEND Internal Medicine

== ENCOUNTER 2019-11-17 13:04 | Inpatient (IN) ==
[2019-11-17] MEDS ORDERED: ASPIRIN 325 MG TABLET PO STA (13:48)
[2019-11-17] MEDS ORDERED: NITROGLYCERIN SL 0.4 MG TABLET SL PRN (13:48)
[2019-11-17] MEDS ORDERED: ASPIRIN 325 MG TABLET ONE (13:49)
[2019-11-17 14:03] LABS: Basophils # 0.1 10*3/uL (0.0-0.2); Basophils % 0.4 % (0.0-0.8); Eosinophils # 0.1 10*3/uL (0.0-0.87); Eosinophils % 0.8 % (0.00-10.9); Hematocrit 43.1 VOL% (42.0-52.0); Hemoglobin 13.4 GM/DL (14.0-18.0); Immature Granulocytes % 0.8 %; Immature Granulocytes Absolute 0.11 #; Lymphocytes # 2.4 10*3/uL (1.4-4.0); Lymphocytes % 16.3 % (21.2-54.2); Mean Corpuscular HGB Conc 31.1 GM/DL (32-36); Mean Corpuscular Volume 90.2 FL (87-102); Mean Platelet Volume 12.1 FL (9.6-12.0); NRBC # 0.06 10*3/uL; Neutrophils % 70.7 % (38.7-73.9); Platelet Count 324 T/CUMM (130-400); Red Blood Count 4.78 MC/CUMM (3.8-5.5); Red Cell Distribution Width 14.9 % (9.3-17.3); White Blood Count 14.4 T/CUMM (4-12)
[2019-11-17 14:13] LABS: Calcium 8.8 MG/DL (8.5-10.1); Osmolality,Calculated 288.2 MOS/KG (273-304)
[2019-11-17] MEDS ORDERED: DEXTROSE 50% 25 GM/50 ML VIAL IV PRN (16:21)
[2019-11-17] MEDS ORDERED: MAGNESIUM SULF RIDER 2 GM in PREMIX 1 EACH IV PRN (16:21)
[2019-11-17] MEDS ORDERED: MAGNESIUM SULF RIDER 4 GM in PREMIX 1 EACH IV PRN (16:21)
[2019-11-17] MEDS ORDERED: ONDANSETRON 4 MG/2 ML VIAL IV PRN (16:21)
[2019-11-17] MEDS ORDERED: GLUCAGON 1 MG VIAL IM PRN (16:21)
[2019-11-17] MEDS ORDERED: ALBUTEROL 2.5 MG/3 ML NEB RESP TX PRN (16:25)
[2019-11-17] MEDS ORDERED: ENOXAPARIN 80 MG/0.8 ML SYRINGE SUBCUT SCH (16:30)
[2019-11-17] MEDS: INSULIN LISPRO 100 UNIT/ML SUBCUT SCH ×2 (18:05→20:44)
[2019-11-17] MEDS: INSULIN GLARGINE 100 UNIT/ML SUBCUT SCH (18:28)
[2019-11-17] MEDS: SODIUM CHLORIDE 0.45% 1,000 ML IV SCH (18:29)
[2019-11-17] MEDS ORDERED: FUROSEMIDE 40 MG TABLET PO SCH (19:00)
[2019-11-17] MEDS: carvediloL 12.5 MG TABLET PO SCH (20:44)
[2019-11-17] MEDS: hydrALAZINE 25 MG TABLET PO SCH (20:44)
[2019-11-17] MEDS: POTASSIUM CHLORIDE 20 MEQ TABLET PO PRN (20:45)
[2019-11-17] MEDS ORDERED: carvediloL 12.5 MG TABLET PO SCH (21:00)
[2019-11-18] MEDS: POTASSIUM CHLORIDE 20 MEQ TABLET PO PRN (00:15)
[2019-11-18 05:47] LABS: Risk Ratio 3.6; VLDL CHOLESTEROL 28.6 MG/DL
[2019-11-18] MEDS ORDERED: RIVAROXABAN 15 MG TABLET PO SCH (08:00)
[2019-11-18] MEDS: allopurinoL 300 MG TABLET PO SCH (08:17)
[2019-11-18] MEDS: carvediloL 12.5 MG TABLET PO SCH ×3 (08:17→19:06)
[2019-11-18] MEDS: CLOPIDOGREL 75 MG TABLET PO SCH ×2 (08:18→16:43)
[2019-11-18] MEDS: sitaGLIPtin 100 MG TABLET PO SCH (08:18)
[2019-11-18] MEDS: AMIODARONE 200 MG TABLET PO SCH (08:18)
[2019-11-18] MEDS: PANTOPRAZOLE 40 MG TABLET PO SCH (08:18)
[2019-11-18] MEDS: ISOSORBIDE MONONITRATE 30 MG TABLET PO SCH (08:18)
[2019-11-18] MEDS: ATORVASTATIN 10 MG TABLET PO SCH (08:18)
[2019-11-18] MEDS: hydrALAZINE 25 MG TABLET PO SCH ×3 (08:18→21:46)
[2019-11-18] MEDS: POTASSIUM CHLORIDE 10 MEQ TABLET PO SCH (08:18)
[2019-11-18] MEDS: LEVOTHYROXINE 137 MCG TABLET PO SCH (08:25)
[2019-11-18] MEDS: ENOXAPARIN 100 MG/ML SYRINGE SUBCUT SCH (08:25)
[2019-11-18] MEDS ORDERED: FUROSEMIDE 40 MG TABLET PO SCH (09:00)
[2019-11-18] MEDS ORDERED: SPIRONOLACTONE 25 MG TABLET PO SCH (09:00)
[2019-11-18 11:06] LABS: Basophils # 0.1 10*3/uL (0.0-0.2); Basophils % 0.6 % (0.0-0.8); Eosinophils # 0.1 10*3/uL (0.0-0.87); Eosinophils % 1.1 % (0.00-10.9); Hematocrit 43.4 VOL% (42.0-52.0); Hemoglobin 13.6 GM/DL (14.0-18.0); Immature Granulocytes % 0.6 %; Immature Granulocytes Absolute 0.07 #; Lymphocytes # 1.7 10*3/uL (1.4-4.0); Lymphocytes % 16.1 % (21.2-54.2); Mean Corpuscular HGB Conc 31.3 GM/DL (32-36); Mean Corpuscular Volume 87.9 FL (87-102); Mean Platelet Volume 12.4 FL (9.6-12.0); Monocytes % 10.3 % (1.7-12.7); NRBC # 0.07 10*3/uL; Neutrophils % 71.3 % (38.7-73.9); Red Blood Count 4.94 MC/CUMM (3.8-5.5); White Blood Count 10.8 T/CUMM (4-12)
[2019-11-18 11:08] LABS: Platelet Count 232 T/CUMM (130-400)
[2019-11-18 11:19] LABS: Calcium 8.4 MG/DL (8.5-10.1); Osmolality,Calculated 286.8 MOS/KG (273-304)
[2019-11-18 11:23] LABS: Hypochromasia 1+
[2019-11-18 11:24] LABS: Microcytosis Slight; Platelet Estimate Normal; Polychromasia Slight
[2019-11-18] MEDS ORDERED: POTASSIUM CHLORIDE 10 MEQ TABLET PO ONE (13:41)
[2019-11-18] MEDS: SODIUM CHLORIDE 0.45% 1,000 ML IV SCH (14:29)
[2019-11-18] MEDS ORDERED: metOLazone 2.5 MG TABLET PO SCH (16:25)
[2019-11-18] MEDS: INSULIN LISPRO 100 UNIT/ML SUBCUT SCH ×3 (16:35→21:47)
[2019-11-18] MEDS: DIGOXIN 0.125 MG TABLET PO SCH (18:30)
[2019-11-18] MEDS: FLUTICASONE 50 MCG NASAL SPRAY 16 GM BOTTLE BOTH NARES SCH (19:06)
[2019-11-18] MEDS: MORPHINE 4 MG/1 ML VIAL IV PRN (21:44)
[2019-11-18] MEDS: INSULIN GLARGINE 100 UNIT/ML SUBCUT SCH (21:46)
[2019-11-19] MEDS: MORPHINE 4 MG/1 ML VIAL IV PRN ×4 (01:03→21:22)
[2019-11-19 05:11] LABS: Basophils # 0.1 10*3/uL (0.0-0.2); Basophils % 0.5 % (0.0-0.8); Eosinophils # 0.2 10*3/uL (0.0-0.87); Eosinophils % 1.5 % (0.00-10.9); Hematocrit 40.5 VOL% (42.0-52.0); Immature Granulocytes % 0.7 %; Immature Granulocytes Absolute 0.07 #; Lymphocytes # 2.2 10*3/uL (1.4-4.0); Lymphocytes % 21.7 % (21.2-54.2); Mean Corpuscular HGB Conc 32.1 GM/DL (32-36); Mean Corpuscular Volume 87.3 FL (87-102); Mean Platelet Volume 12.1 FL (9.6-12.0); Monocytes % 11.5 % (1.7-12.7); NRBC # 0.05 10*3/uL; Neutrophils % 64.1 % (38.7-73.9); Platelet Count 310 T/CUMM (130-400); Red Blood Count 4.64 MC/CUMM (3.8-5.5); Red Cell Distribution Width 14.8 % (9.3-17.3)
[2019-11-19 05:23] LABS: Calcium 8.5 MG/DL (8.5-10.1); Osmolality,Calculated 284.7 MOS/KG (273-304)
[2019-11-19] MEDS ORDERED: POTASSIUM CHLORIDE 20 MEQ TABLET PO ONE (07:34)
[2019-11-19] MEDS ORDERED: MAGNESIUM SULF RIDER 2 GM in PREMIX 1 EACH IV PRN (08:18)
[2019-11-19] MEDS ORDERED: POTASSIUM CHLORIDE RIDER 10 MEQ in PREMIX 1 EACH IV PRN (08:18)
[2019-11-19] MEDS: ISOSORBIDE MONONITRATE 30 MG TABLET PO SCH (08:56)
[2019-11-19] MEDS: ENOXAPARIN 100 MG/ML SYRINGE SUBCUT SCH (08:57)
[2019-11-19] MEDS: ASPIRIN EC 81 MG TABLET PO SCH (08:57)
[2019-11-19] MEDS: AMIODARONE 200 MG TABLET PO SCH (08:57)
[2019-11-19] MEDS: LEVOTHYROXINE 137 MCG TABLET PO SCH (08:57)
[2019-11-19] MEDS: hydrALAZINE 25 MG TABLET PO SCH ×3 (08:57→21:20)
[2019-11-19] MEDS: carvediloL 12.5 MG TABLET PO SCH ×2 (08:57→16:45)
[2019-11-19] MEDS: CLOPIDOGREL 75 MG TABLET PO SCH (08:57)
[2019-11-19] MEDS: ATORVASTATIN 10 MG TABLET PO SCH (08:57)
[2019-11-19] MEDS: POTASSIUM CHLORIDE 10 MEQ TABLET PO SCH (08:57)
[2019-11-19] MEDS: PANTOPRAZOLE 40 MG TABLET PO SCH (08:57)
[2019-11-19] MEDS: sitaGLIPtin 100 MG TABLET PO SCH (08:57)
[2019-11-19] MEDS: allopurinoL 300 MG TABLET PO SCH (08:57)
[2019-11-19] MEDS: FLUTICASONE 50 MCG NASAL SPRAY 16 GM BOTTLE BOTH NARES SCH (08:58)
[2019-11-19] MEDS: INSULIN LISPRO 100 UNIT/ML SUBCUT SCH ×4 (09:05→21:22)
[2019-11-19] MEDS ORDERED: FUROSEMIDE 20 MG/2 ML VIAL IV ONE (13:13)
[2019-11-19] MEDS: DIGOXIN 0.125 MG TABLET PO SCH (13:25)
[2019-11-19] MEDS ORDERED: LEVOFLOXACIN INJ 250 MG in PREMIX 1 EACH IV SCH (13:30)
[2019-11-19] MEDS ORDERED: cefTRIAXone 250 MG in SODIUM CHLORIDE 0.9% 100 ML IV SCH (13:30)
[2019-11-19] MEDS ORDERED: cefTRIAXone 250 MG in SYRINGE 1 EACH IV SCH (14:00)
[2019-11-19] MEDS: cefTRIAXone 250 MG in SYRINGE 1 EACH IV SCH (14:22)
[2019-11-19] MEDS: POTASSIUM CHLORIDE 20 MEQ TABLET PO PRN (16:45)
[2019-11-19] MEDS: SODIUM CHLORIDE 0.45% 1,000 ML IV SCH (16:45)
[2019-11-19] MEDS: INSULIN GLARGINE 100 UNIT/ML SUBCUT SCH (21:20)
[2019-11-20] MEDS: MORPHINE 4 MG/1 ML VIAL IV PRN ×2 (00:43→04:36)
[2019-11-20] MEDS: cefTRIAXone 250 MG in SYRINGE 1 EACH IV SCH ×2 (02:10→15:44)
[2019-11-20] MEDS: SODIUM CHLORIDE 0.45% 1,000 ML IV SCH (04:21)
[2019-11-20 05:45] LABS: Basophils # 0.1 10*3/uL (0.0-0.2); Basophils % 0.6 % (0.0-0.8); Eosinophils # 0.1 10*3/uL (0.0-0.87); Hematocrit 40.7 VOL% (42.0-52.0); Hemoglobin 12.8 GM/DL (14.0-18.0); Immature Granulocytes % 0.8 %; Immature Granulocytes Absolute 0.08 #; Lymphocytes % 19.7 % (21.2-54.2); Mean Corpuscular HGB Conc 31.4 GM/DL (32-36); Mean Corpuscular Volume 87.5 FL (87-102); Mean Platelet Volume 11.9 FL (9.6-12.0); Monocytes % 13.3 % (1.7-12.7); NRBC # 0.06 10*3/uL; Neutrophils % 64.6 % (38.7-73.9); Platelet Count 333 T/CUMM (130-400); Red Blood Count 4.65 MC/CUMM (3.8-5.5); Red Cell Distribution Width 14.9 % (9.3-17.3); White Blood Count 10.3 T/CUMM (4-12)
[2019-11-20 06:08] LABS: Calcium 8.4 MG/DL (8.5-10.1); Osmolality,Calculated 284.7 MOS/KG (273-304)
[2019-11-20] MEDS ORDERED: LIDOCAINE 1% 20 ML VIAL ONE (07:08)
[2019-11-20] MEDS ORDERED: HEPARIN/NACL 0.9% 2 UNITS/ML 1,000 ML IV ONE (07:08)
[2019-11-20] MEDS ORDERED: DIAZEPAM 5 MG TABLET PO ONE (09:30)
[2019-11-20] MEDS ORDERED: diphenhydrAMINE CAP 25 MG CAPSULE PO ONE (09:30)
[2019-11-20] MEDS ORDERED: POTASSIUM CHLORIDE 20 MEQ TABLET PO ONE (10:23)
[2019-11-20] MEDS ORDERED: ENOXAPARIN 100 MG/ML SYRINGE SUBCUT ONE (10:32)
[2019-11-20] MEDS: INSULIN LISPRO 100 UNIT/ML SUBCUT SCH ×4 (10:44→21:21)
[2019-11-20] MEDS: sitaGLIPtin 100 MG TABLET PO SCH (10:53)
[2019-11-20] MEDS: LEVOTHYROXINE 137 MCG TABLET PO SCH (10:53)
[2019-11-20] MEDS: NEBIVOLOL 10 MG TABLET PO SCH (10:53)
[2019-11-20] MEDS: ISOSORBIDE MONONITRATE 30 MG TABLET PO SCH (10:54)
[2019-11-20] MEDS: allopurinoL 300 MG TABLET PO SCH (10:54)
[2019-11-20] MEDS: hydrALAZINE 25 MG TABLET PO SCH ×3 (10:54→21:19)
[2019-11-20] MEDS: POTASSIUM CHLORIDE 10 MEQ TABLET PO SCH (10:54)
[2019-11-20] MEDS: PANTOPRAZOLE 40 MG TABLET PO SCH (10:54)
[2019-11-20] MEDS: FLUTICASONE 50 MCG NASAL SPRAY 16 GM BOTTLE BOTH NARES SCH (10:55)
[2019-11-20] MEDS: CLOPIDOGREL 75 MG TABLET PO SCH (10:55)
[2019-11-20] MEDS: ATORVASTATIN 10 MG TABLET PO SCH (10:55)
[2019-11-20] MEDS: ASPIRIN EC 81 MG TABLET PO SCH (10:55)
[2019-11-20] MEDS: AMIODARONE 200 MG TABLET PO SCH (10:55)
[2019-11-20] MEDS: carvediloL 12.5 MG TABLET PO SCH (11:47)
[2019-11-20] MEDS: DIGOXIN 0.125 MG TABLET PO SCH (15:44)
[2019-11-20] MEDS: INSULIN GLARGINE 100 UNIT/ML SUBCUT SCH (18:24)
[2019-11-21] MEDS: SODIUM CHLORIDE 0.45% 1,000 ML IV SCH ×2 (00:20→18:35)
[2019-11-21] MEDS: cefTRIAXone 250 MG in SYRINGE 1 EACH IV SCH ×2 (02:39→15:38)
[2019-11-21 05:33] LABS: Apearance,Urine Slightly Hazy (Clear); Bacteria,Urine Occasional /HPF (Few); Bilirubin,Urine Negative (Negative); Blood, Urine Negative (Negative); Glucose,Urine (UA) Negative (Negative); Hyaline Casts,Urine 16 /LPF (0-3); Ketones,Urine Negative (Negative); Mucus,Urine Occasional /LPF (Occasional); Nitrite,Urine Negative (Negative); Protein,Urine Negative; RBC,Urine 1 /HPF (0-4); Sperm,Urine Occasional /HPF (Negative); Squamous Epithelial Cell,Urine Occasional /HPF (0-10); Urine Specific Gravity 1.016 (1.001-1.035); Urine Urobilinogen < 2.0 EU/DL (0.2-1.0); WBC,Urine 2 /HPF (0-6)
[2019-11-21 05:36] LABS: Urine Color Yellow (Yellow)
[2019-11-21 05:47] LABS: Basophils # 0.1 10*3/uL (0.0-0.2); Basophils % 0.6 % (0.0-0.8); Eosinophils # 0.1 10*3/uL (0.0-0.87); Eosinophils % 0.4 % (0.00-10.9); Hematocrit 41.4 VOL% (42.0-52.0); Hemoglobin 12.8 GM/DL (14.0-18.0); Immature Granulocytes % 1.1 %; Immature Granulocytes Absolute 0.15 #; Lymphocytes # 2.2 10*3/uL (1.4-4.0); Lymphocytes % 15.7 % (21.2-54.2); Mean Corpuscular HGB Conc 30.9 GM/DL (32-36); Mean Corpuscular Volume 89.6 FL (87-102); Mean Platelet Volume 12.1 FL (9.6-12.0); Monocytes % 14.1 % (1.7-12.7); NRBC # 0.16 10*3/uL; Neutrophils % 68.1 % (38.7-73.9); Platelet Count 411 T/CUMM (130-400); Red Blood Count 4.62 MC/CUMM (3.8-5.5); Red Cell Distribution Width 15.1 % (9.3-17.3); White Blood Count 13.7 T/CUMM (4-12)
[2019-11-21 06:08] LABS: Calcium 8.4 MG/DL (8.5-10.1); Osmolality,Calculated 278.8 MOS/KG (273-304)
[2019-11-21] MEDS: ATORVASTATIN 10 MG TABLET PO SCH (10:00)
[2019-11-21] MEDS: INSULIN LISPRO 100 UNIT/ML SUBCUT SCH ×4 (10:00→22:17)
[2019-11-21] MEDS: PANTOPRAZOLE 40 MG TABLET PO SCH (10:01)
[2019-11-21] MEDS: hydrALAZINE 25 MG TABLET PO SCH ×3 (10:01→22:17)
[2019-11-21] MEDS: ISOSORBIDE MONONITRATE 30 MG TABLET PO SCH (10:01)
[2019-11-21] MEDS: POTASSIUM CHLORIDE 10 MEQ TABLET PO SCH (10:02)
[2019-11-21] MEDS: CLOPIDOGREL 75 MG TABLET PO SCH (10:02)
[2019-11-21] MEDS: allopurinoL 300 MG TABLET PO SCH (10:02)
[2019-11-21] MEDS: ASPIRIN EC 81 MG TABLET PO SCH (10:02)
[2019-11-21] MEDS: AMIODARONE 200 MG TABLET PO SCH (10:02)
[2019-11-21] MEDS: NEBIVOLOL 10 MG TABLET PO SCH (10:02)
[2019-11-21] MEDS: LEVOTHYROXINE 137 MCG TABLET PO SCH (10:02)
[2019-11-21] MEDS: FLUTICASONE 50 MCG NASAL SPRAY 16 GM BOTTLE BOTH NARES SCH (10:05)
[2019-11-21] MEDS: sitaGLIPtin 100 MG TABLET PO SCH (10:06)
[2019-11-21] MEDS ORDERED: POTASSIUM CHLORIDE 20 MEQ TABLET PO ONE (11:49)
[2019-11-21] MEDS ORDERED: ENOXAPARIN 100 MG/ML SYRINGE SUBCUT ONE (11:52)
[2019-11-21] MEDS: DIGOXIN 0.125 MG TABLET PO SCH (15:36)
[2019-11-21] MEDS: INSULIN GLARGINE 100 UNIT/ML SUBCUT SCH (18:16)
[2019-11-22] MEDS: cefTRIAXone 250 MG in SYRINGE 1 EACH IV SCH ×2 (02:47→14:52)
[2019-11-22 05:22] LABS: Basophils # 0.1 10*3/uL (0.0-0.2); Basophils % 0.4 % (0.0-0.8); Eosinophils % 0.1 % (0.00-10.9); Hematocrit 41.1 VOL% (42.0-52.0); Hemoglobin 12.9 GM/DL (14.0-18.0); Immature Granulocytes % 1.4 %; Immature Granulocytes Absolute 0.23 #; Lymphocytes # 1.9 10*3/uL (1.4-4.0); Lymphocytes % 11.5 % (21.2-54.2); Mean Corpuscular HGB Conc 31.4 GM/DL (32-36); Mean Corpuscular Volume 88.2 FL (87-102); Mean Platelet Volume 12.2 FL (9.6-12.0); Monocytes % 17.8 % (1.7-12.7); NRBC # 0.21 10*3/uL; Neutrophils % 68.8 % (38.7-73.9); Platelet Count 341 T/CUMM (130-400); Red Blood Count 4.66 MC/CUMM (3.8-5.5); Red Cell Distribution Width 15.3 % (9.3-17.3); White Blood Count 16.7 T/CUMM (4-12)
[2019-11-22 06:13] LABS: Calcium 8.9 MG/DL (8.5-10.1); Osmolality,Calculated 272.5 MOS/KG (273-304)
[2019-11-22 06:33] LABS: Anisocytosis 1+; Lymphocytes 9 % (20-55); Nucleated Red Blood Cells 2 (0-5); Platelet Estimate Normal; Segmented Neutrophils 82 % (50-85); Total Cells Counted 100
[2019-11-22 06:35] LABS: Hypochromasia 1+; Microcytosis 1+; Polychromasia 1+; Target Cells 1+
[2019-11-22] MEDS: INSULIN LISPRO 100 UNIT/ML SUBCUT SCH ×4 (08:53→23:51)
[2019-11-22] MEDS: allopurinoL 300 MG TABLET PO SCH (09:00)
[2019-11-22] MEDS: AMIODARONE 200 MG TABLET PO SCH (09:01)
[2019-11-22] MEDS: ATORVASTATIN 10 MG TABLET PO SCH (09:01)
[2019-11-22] MEDS: ASPIRIN EC 81 MG TABLET PO SCH (09:01)
[2019-11-22] MEDS: LEVOTHYROXINE 137 MCG TABLET PO SCH (09:01)
[2019-11-22] MEDS: NEBIVOLOL 10 MG TABLET PO SCH (09:01)
[2019-11-22] MEDS: CLOPIDOGREL 75 MG TABLET PO SCH (09:01)
[2019-11-22] MEDS: PANTOPRAZOLE 40 MG TABLET PO SCH (09:01)
[2019-11-22] MEDS: ISOSORBIDE MONONITRATE 30 MG TABLET PO SCH (09:01)
[2019-11-22] MEDS: hydrALAZINE 25 MG TABLET PO SCH (09:02)
[2019-11-22] MEDS: sitaGLIPtin 100 MG TABLET PO SCH (09:02)
[2019-11-22] MEDS: FLUTICASONE 50 MCG NASAL SPRAY 16 GM BOTTLE BOTH NARES SCH (09:02)
[2019-11-22] MEDS: ENOXAPARIN 100 MG/ML SYRINGE SUBCUT SCH (12:42)
[2019-11-22] MEDS: hydrALAZINE 10 MG TABLET PO SCH ×2 (14:44→21:28)
[2019-11-22] MEDS: INSULIN GLARGINE 100 UNIT/ML SUBCUT SCH (18:05)
[2019-11-23] MEDS: cefTRIAXone 250 MG in SYRINGE 1 EACH IV SCH (02:30)
[2019-11-23 04:56] LABS: Basophils # 0.1 10*3/uL (0.0-0.2); Basophils % 0.2 % (0.0-0.8); Hematocrit 37.8 VOL% (42.0-52.0); Hemoglobin 11.7 GM/DL (14.0-18.0); Immature Granulocytes % 1.9 %; Immature Granulocytes Absolute 0.48 #; Lymphocytes # 1.6 10*3/uL (1.4-4.0); Lymphocytes % 6.5 % (21.2-54.2); Mean Corpuscular Volume 89.4 FL (87-102); Mean Platelet Volume 12.4 FL (9.6-12.0); Monocytes % 16.3 % (1.7-12.7); NRBC # 0.33 10*3/uL; Neutrophils % 75.1 % (38.7-73.9); Platelet Count 294 T/CUMM (130-400); Red Blood Count 4.23 MC/CUMM (3.8-5.5); Red Cell Distribution Width 15.6 % (9.3-17.3)
[2019-11-23 05:22] LABS: Calcium 9.1 MG/DL (8.5-10.1); Osmolality,Calculated 283.5 MOS/KG (273-304)
[2019-11-23 05:38] LABS: Band Neutrophils 3 % (0-10); Lymphocytes 6 % (20-55); Nucleated Red Blood Cells 3 (0-5); Segmented Neutrophils 80 % (50-85); Total Cells Counted 100
[2019-11-23 05:39] LABS: Anisocytosis 1+; Platelet Estimate Normal; Target Cells Few
[2019-11-23] MEDS: sitaGLIPtin 100 MG TABLET PO SCH (08:51)
[2019-11-23] MEDS: INSULIN LISPRO 100 UNIT/ML SUBCUT SCH ×4 (08:51→21:37)
[2019-11-23] MEDS: AMIODARONE 200 MG TABLET PO SCH (08:52)
[2019-11-23] MEDS: ASPIRIN EC 81 MG TABLET PO SCH (08:52)
[2019-11-23] MEDS: CLOPIDOGREL 75 MG TABLET PO SCH (08:52)
[2019-11-23] MEDS: NEBIVOLOL 10 MG TABLET PO SCH (08:52)
[2019-11-23] MEDS: ATORVASTATIN 10 MG TABLET PO SCH (08:52)
[2019-11-23] MEDS: allopurinoL 300 MG TABLET PO SCH (08:52)
[2019-11-23] MEDS: hydrALAZINE 10 MG TABLET PO SCH ×3 (08:52→20:15)
[2019-11-23] MEDS: PANTOPRAZOLE 40 MG TABLET PO SCH (08:53)
[2019-11-23] MEDS: ISOSORBIDE MONONITRATE 30 MG TABLET PO SCH (08:53)
[2019-11-23] MEDS: FLUTICASONE 50 MCG NASAL SPRAY 16 GM BOTTLE BOTH NARES SCH (08:53)
[2019-11-23] MEDS: LEVOTHYROXINE 137 MCG TABLET PO SCH (08:58)
[2019-11-23] MEDS ORDERED: LEVOFLOXACIN INJ 250 MG in PREMIX 1 EACH IV SCH (09:30)
[2019-11-23 11:17] LABS: Risk Ratio 5.61; VLDL CHOLESTEROL 13.8 MG/DL
[2019-11-23] MEDS: ENOXAPARIN 100 MG/ML SYRINGE SUBCUT SCH (12:00)
[2019-11-23] MEDS ORDERED: SODIUM BICARB INJ 50 MEQ in DEXTROSE 5% NACL 0.45% 1,000 ML IV SCH (14:30)
[2019-11-23] MEDS ORDERED: PIPERACILLIN/TAZOBACTAM 3,375 MG in SODIUM CHLORIDE 0.9% 100 ML IV SCH (15:00)
[2019-11-23] MEDS ORDERED: SODIUM CHLORIDE 0.9% 2,800 ML IV ONE (16:53)
[2019-11-23 17:16] VITALS: BP 107/56
[2019-11-23 18:03] LABS: ABG Base Excess -12.1 MMOL/L (-2.5-2.5); ABG PCO2 21.2 MM HG (35-48); ABG PH 7.355 (7.35-7.45); ABG PO2 92.4 MM HG (80-95); ABG TCO2 10.6 MMOL/L (23-27); Allen Test Positive; Pt O2 Delivery Device Room Air
[2019-11-23] MEDS: INSULIN GLARGINE 100 UNIT/ML SUBCUT SCH (18:23)
[2019-11-23] MEDS ORDERED: DEXTROSE 10% 250 ML BAG IV PRN (18:30)
[2019-11-23] MEDS ORDERED: VANCOMYCIN INJ 1,250 MG in SODIUM CHLORIDE 0.9% 250 ML IV SCH (21:00)
[2019-11-24 03:56] LABS: Amorphous Crystals,Urine Moderate /HPF (Few); Apearance,Urine CLOUDY (Clear); Bilirubin,Urine Negative (Negative); Blood, Urine Negative (Negative); Glucose,Urine (UA) Negative (Negative); Ketones,Urine Negative (Negative); Nitrite,Urine Negative (Negative); Protein,Urine 100 MG/DL; Urine Color Amber (Yellow); Urine Specific Gravity 1.015 (1.001-1.035); Urine Urobilinogen < 2.0 EU/DL (0.2-1.0)
[2019-11-24 03:56] LABS: Basophils # 0.1 10*3/uL (0.0-0.2); Basophils % 0.2 % (0.0-0.8); Hematocrit 31.3 VOL% (42.0-52.0); Hemoglobin 9.4 GM/DL (14.0-18.0); Immature Granulocytes % 2.4 %; Immature Granulocytes Absolute 1.03 #; Lymphocytes # 0.7 10*3/uL (1.4-4.0); Lymphocytes % 1.6 % (21.2-54.2); Mean Corpuscular Volume 93.7 FL (87-102); Mean Platelet Volume 13.3 FL (9.6-12.0); Monocytes % 9.2 % (1.7-12.7); NRBC # 0.57 10*3/uL; Neutrophils % 86.6 % (38.7-73.9); Platelet Count 177 T/CUMM (130-400); Red Blood Count 3.34 MC/CUMM (3.8-5.5); Red Cell Distribution Width 15.9 % (9.3-17.3)
[2019-11-24] MEDS ORDERED: EPINEPHrine 1 MG/10 ML SYRINGE ONE (04:04)
[2019-11-24] MEDS ORDERED: SODIUM BICARBONATE 50 MEQ/50 ML SYRINGE IV ONE (04:04)
[2019-11-24 04:05] LABS: White Blood Count 42.6 T/CUMM (4-12)
[2019-11-24 04:08] LABS: Calcium 6.7 MG/DL (8.5-10.1); Osmolality,Calculated 301.2 MOS/KG (273-304)
[2019-11-24 04:55] LABS: Band Neutrophils 2 % (0-10); Lymphocytes 1 % (20-55); Nucleated Red Blood Cells 1 (0-5); Segmented Neutrophils 90 % (50-85); Total Cells Counted 100
[2019-11-24 04:57] LABS: Anisocytosis 1+; Platelet Estimate Normal; Polychromasia 1+
== END 2019-11-24 04:28 | disposition expired | DRG 682 ==
LOC: N.ED 13:04 → SUATTDRO 16:21 → N.EDINP 16:42 → N.TELES 16:45 → N.2W 11-23 15:08 → N.CC 11-23 17:35
PROVIDERS: ADMIT Family Medicine; ATTEND Internal Medicine